=== PATIENT | female | born 1940 | race Caucasian/White ===

== ENCOUNTER 2017-11-16 16:00 | Outpatient (RCR) | payer MEDICARE, OTHER, SELFPAY ==
--- NOTE | 2017-11-09 10:35 | HMH.PTOPEV ---
PT Outpatient Evaluation Rehab PT Outpatient Evaluation Start: 11/09/17 09:30 Freq: Status: Active Protocol: Document 11/09/17 09:31 LATOSHA (Rec: 11/09/17 10:35 LATOSHA [id number]) Electronically Signed By Kaleb Olson, PT 11/09/17 09:31 Outpatient Therapy Subjective History Subjective History Pt is a 77 year old female presenting to outpatient PT with reports of R posterior hip and lateral thigh pain that radiates to the lateral R knee lasting for approximately 2 months that has progressively gotten worse . Pt reports pain started around the time of increased activity levels, specifically treadmill walking. Pt reports hx of fall resulting in lumbar spine fracture with cementing 2 years ago. Only treatment to date for current symptoms includes seeing a chiropractor that provided no relief. No recent diagnostics to report. Chief Complaint Pain Symptom Type Ache Sharp Burning Symptoms Relieved By Rest/Positioning Ice Prescription Meds Symptoms Aggravated By Standing Bending/Stooping Physical Activity Walking Lifting Prior Functional Limitations None Current Functional Limitations Lifting Housework Standing Recreation Activity Walking Stairs Symptom Description Constant but Variable Level of pain today (0-10) 2 Pain scale - at its best (0-10) 7 Pain scale - at its worst (0-10) 1 Lumbopelvic Eval Posture Thoracic Spine Posture Standing Position Increased Kyphosis Lumbar Spine Posture Standing Position Decreased Lordosis Assistive device Assistive Devices None / NA Palapation tenderness right buttock tenderness Yes: piriformis, trochanteric bursa Range of Motion Lumbar Spine Active Flexion Range of 85 Motion (degrees) Lumbar Spine Active Extension Range of 10
== END 2017-11-16 16:01 | disposition home or self-care (01) ==
LOC: PT 16:00
PROVIDERS: Family Provider Internal Medicine; Visit Provider Internal Medicine
DX: M54.31 Sciatica, right side (principal)
CPT/HCPCS: 97010; 97014; 97035; 97110; 97163; G0283

== ENCOUNTER → 2017-12-09 15:30 | Outpatient (POV) | payer MEDICARE, OTHER, SELFPAY | PROVIDERS: Family Provider Internal Medicine; Visit Provider Dermatology | DX: Z00.00 Encounter for general adult medical examination without abnormal findings (principal) ==

== ENCOUNTER 2017-12-31 10:30 | Outpatient (RCR) | payer MEDICARE, OTHER, SELFPAY | END 2018-01-01 10:31 | disposition home or self-care (01) | LOC: PT 10:30 | PROVIDERS: Family Provider Internal Medicine; Visit Provider Orthopaedic Surgery | DX: M54.40 Lumbago with sciatica, unspecified side (principal) | CPT/HCPCS: 97010; 97014; 97035; 97110; 97163; G0283 ==

== ENCOUNTER → 2018-03-04 08:58 | Outpatient (CLI) | payer MEDICARE, OTHER, SELFPAY ==
--- NOTE | 2018-03-04 09:03 | XR_ITS ---
DEXA SCAN.-BONE DENSITY STUDY HIPS AND LUMBAR SPINE HISTORY: Postmenopausal female. Takes calcium and vitamin D. HISTORY of osteopenia/osteoporosis. Interval kyphoplasty/vertebroplasty at L2 compression fracture as seen on CT study from November 17, 2017 and plain films 02/14/2017. Inferior endplate concave compression deformity at L3 seen November 2017. TECHNIQUE: DEXA scan hip and lumbar spine The most complete data summary and color graphic presentation of the today's ( and any prior ) DEXA findings are available in PACS. Definition and treatment guidelines included. COMPARISON: July 2015 DEXA scan LUMBAR SPINE: Sampling performed from L1 through L4 however the day from L2-L3 discarded because of the interval vertebroplasty changes. L4 vertebral body demonstrates the lowest T score -2.3 with BMD0.923 g/cm sq L1 T score -1.3 with BMD 0.978 Overall mean lumbar L1-L4 T score -1.1 with BMD1.05 g/cm sq .- But is overall L1-L4 score is distorted value due to the vertebroplasty/kyphoplasty L2-L3 2016 prior DEXA the mean T score -2.9 with BMD was0.829g/cm sq . However comparing L4: Today. BMD = 0.923. Previous 2016 BMD = 0.804 showing slight interval improvement comparison l1 today BMD 0.978; with previous 2016 T score 0.816 HIPS: Femoral neck density is best predictor of hip fracture risk . Right femoral neck demonstrates the lowest T score -2.2 with BMD0.726 g/cm sq . Left femoral neck T score -2.1 BMD 0.75 Averaging on region yields today's Hip Mean T score -2.4 with BMD0.699 g/cm sq . In 2016 DEXA overall hip T score -2.4 with mean BMD0.709 g/cm sq Thus this reflects a 1.4% decrease in overall mean bone density at the hips in the interval. . However I would note a suggested Z score = -0.6 of reflecting decreased density in interval compatible with patient's progression IMPRESSION 1. LUMBAR SPINE: There is been interval compression fracture with kyphoplasty at L2 and L3 prior 2016 DEXA scan. (Thus these levels are discarded because of the distorted density from interval vertebroplasty changes.) More c s s representative bone density seen at L4 and L1 vertebral bodies these levels demonstrate osteopenia today with improvement in bone density at L1 & L4 vertebral bodies since 2016. 2. HIPS: Overall osteopenia both hips Osteopenia right and left femoral neck Overall hip T score has decreased 1.4% since 2016. This the anticipated decreased bone density over this time.. .;, ( As I would note from the unchanged, stable age adjusted Z score = -0.6 ) WHO criteria for post-menopausal, Women: Normal: T-score at or above -1 SD Osteopenia: T-score between -1 and -2.5 SD Osteoporosis: T-score at or below -2.5 SD
== END ==
PROVIDERS: PCP Internal Medicine; Visit Provider Internal Medicine
DX: M81.0 Age-related osteoporosis without current pathological fracture (principal)
CPT/HCPCS: 77080

== ENCOUNTER 2018-03-09 09:29 | Outpatient (CLI) | payer MEDICARE, OTHER, SELFPAY ==
[2018-03-09 09:32] VITALS: BMI 26.9
[2018-03-09 10:03] LABS: Albumin Level 3.8 gm/dL (3.4-5.0); Calcium 9.1 mg/dL (8.5-10.1); Creatinine Clearance Estimated 50 mL/min (0-300); Creatinine,Serum 0.77 mg/dL (0.55-1.02); Estimated Glomerular Filt Rate 73 ml/min (>60); GFR (African American) 88 ML/MIN (>60)
[2018-03-09 10:40] VITALS: BP 144/78; PULSE 55; RESP 18; TEMP 36.7; O2SAT 96
[2018-03-09 11:05] VITALS: BP 142/72; PULSE 59; RESP 18; O2SAT 97
== END 2018-03-09 11:15 | disposition home or self-care (01) ==
LOC: INF 09:29
PROVIDERS: Visit Provider Internal Medicine
DX: M75.51 Bursitis of right shoulder (principal); M81.0 Age-related osteoporosis without current pathological fracture
CPT/HCPCS: 82040; 82310; 82565; 96374; J3489

== ENCOUNTER → 2018-04-22 16:20 | Outpatient (CLI) | payer MEDICARE, OTHER, SELFPAY ==
--- NOTE | 2018-04-22 16:24 | XR_ITS ---
EXAM: XR lumbar spine min 4V HISTORY: ITS.REASON: LUMBAR BACK PAIN ORDERING PHYSICIAN: Deshaun Dupree PATIENT AGE: 78 years COMPARISON: 02/14/2017 FINDINGS: There has been prior vertebral plasty at L2 and L3 with wedging of both of these vertebral bodies greatest at L2. There is normal alignment. No acute fracture or dislocation is evident. 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 IMPRESSION: Post vertebroplasty L2 and L3, no acute finding
== END ==
PROVIDERS: PCP Internal Medicine; Visit Provider Internal Medicine
DX: M54.5 Low back pain (principal)
CPT/HCPCS: 72110

== ENCOUNTER → 2018-06-30 08:47 | Outpatient (CLI) | payer MEDICARE, OTHER, SELFPAY ==
[2018-06-30 09:38] LABS: Alanine Aminotransferase 25 U/L (12-78); Albumin Level 3.8 gm/dL (3.4-5.0); Albumin/Globulin Ratio 1.2 (1.1-1.8); Alkaline Phosphatase 104 U/L (46-116); Anion Gap 11.1 mEq/L (5-15); Aspartate Amino Transferase 14 U/L (15-37); Bilirubin,Total 0.4 mg/dL (0.2-1.0); Blood Urea Nitrogen 16 mg/dL (7-18); Calcium 9.2 mg/dL (8.5-10.1); Carbon Dioxide 30 mmol/L (21.0-32.0); Chloride 104 mmol/L (98-107); Cholesterol 235 mg/dL (140-200); Creatinine,Serum 0.84 mg/dL (0.55-1.02); Estimated Glomerular Filt Rate 66 ml/min (>60); GFR (African American) 80 ML/MIN (>60); Globulin 3.3 gm/dl (1.3-3.2); Glucose 82 mg/dL (74-106); HDL Cholesterol 118 mg/dL (29-89); LDL Cholesterol 105 mg/dL (0-130); Potassium 4.1 mmoL/L (3.5-5.1); Sodium 141 mmol/L (136-145); Total Protein,Serum 7.1 gm/dL (6.4-8.2); Triglycerides 60 mg/dL (30-200); VLDL Cholesterol 12 mg/dL (0-40)
[2018-06-30 09:44] LABS: Basophils % 0.5 % (0.1-2.0); Eosinophils % 0.5 % (0.1-12.0); Hematocrit 46.1 % (37.0-47.0); Lymphocytes # 1.7 K/mm3 (0.7-4.5); Lymphocytes % 27.8 % (10-50); Mean Corpuscular HGB Conc 32.6 g/dL (31.8-35.4); Mean Corpuscular Hemoglobin 30.8 pg (27.0-31.2); Mean Corpuscular Volume 94.5 fl (81-99); Mean Platelet Volume 7.5 fl (7.4-10.4); Monocytes # 0.3 K/mm3 (0.1-1.0); Neutrophils # 4.1 K/mm3 (1.8-7.8); Neutrophils % 66.1 % (37.0-80.0); Platelet Count 321 K/mm3 (142-424); Red Blood Count 4.88 M/mm3 (4.20-5.40); Red Cell Distribution Width 13.9 % (11.5-17.5); White Blood Count 6.2 K/mm3 (4.8-10.8)
== END ==
PROVIDERS: PCP Internal Medicine; Visit Provider Internal Medicine
DX: I10 Essential (primary) hypertension (principal); E78.5 Hyperlipidemia, unspecified; I25.10 Atherosclerotic heart disease of native coronary artery without angina pectoris; M15.0 Primary generalized (osteo)arthritis
CPT/HCPCS: 36415; 80053; 80061; 85025

== ENCOUNTER → 2018-09-05 16:28 | Outpatient (CLI) | payer MEDICARE, OTHER, SELFPAY ==
--- NOTE | 2018-09-05 16:33 | XR_ITS ---
XR shoulder RT min 2V HISTORY: Posttraumatic pain ITS.REASON: S/P FALL,RT SHOULDER PAIN ORDERING PHYSICIAN: Deshaun Dupree PATIENT AGE: 78 years Comparison: None FINDINGS: A nondisplaced oblique fracture involves the scapula at the glenoid extending obliquely to the infraglenoid region. There does appear to be intra-articular involvement. No evidence of shoulder dislocation. There are mild osteoarthritic changes of the glenohumeral joint and the acromioclavicular joint. IMPRESSION: 1. Nondisplaced fracture of the glenoid with intra-articular involvement. Consider CT for further evaluation 2. Osteoarthritic change
== END ==
PROVIDERS: PCP Internal Medicine; Visit Provider Internal Medicine
DX: M25.511 Pain in right shoulder (principal)
CPT/HCPCS: 73030

== ENCOUNTER → 2018-09-26 11:01 | Outpatient (CLI) | payer MEDICARE, OTHER, SELFPAY ==
--- NOTE | 2018-09-26 11:03 | CA_ITS ---
PROCEDURE: 2-D M-mode and color Doppler study INDICATIONS FOR THE TEST: Chest pain COPD+ Heart Murmur Tobacco Smoking Palpitations Fatigue Syncope Edema Hypertension+Diabetes Mellitus Rheumatic Fever SOB+SAUCEDO+Obesity Hyperlipidemia+ Family History HD Additional History STENSTS,CARDIOMEGALY PATIENT INFORMATION HEIGHT: 62 WEIGHT:143 GENDER: Female B/P:124/70 2-D/M-MODE INTERPRETATION: 2-D MEASUREMENTS OBSERVED VALUES IN CMS Right Ventricular Dimension (RVDd) 1.6 Interventricular Septum (Thickness)(IVsd) 0.7 Left Ventricular Internal Dimensions(LVIDd) 5.3 Left Ventricular Posterior Wall (Thickness)(LVPWd) 0.9 Aortic Root 2.5 Aortic Cusp Separation 1.5 Left Atrial Dimensions (LAD) 5.0 2D 1. Left atrium is moderately enlarged, left ventricle is normal size, there is mild qualitative concentric left ventricular hypertrophy seen, visually estimated ejection fraction 55% with no regional wall motion abnormality. 2. The right atrium and right ventricle are mildly enlarged with normal contractility. 3. The aortic valve is minimally thickened and fibrosed. 4. The mitral and tricuspid valve leaflets are minimally thickened. 5. The pulmonic valve is poorly projected 6. There is small pericardial effusion noted. DOPPLER INTERROGATION: Doppler interrogation of the aortic, mitral and tricuspid valvular presence of trace aortic, mild mitral and tricuspid regurgitation, tricuspid regurgitation jet velocity is inadequate for calculation of the right ventricular systolic pressure, grade 2 diastolic dysfunction seen with tissue Doppler evidence of raised left atrial pressure. Inferior vena cava is normal size with normal inspiratory collapse. CONCLUSION: 1. Biatrial enlargement, normal left ventricular size, mild concentric left ventricular hypertrophy, visually estimated ejection fraction 55% with no regional wall motion abnormality, grade 2 diastolic dysfunction seen with tissue Doppler evidence of raised left atrial pressure, inferior vena cava is normal size with normal inspiratory collapse. 2. Trace aortic, mild mitral and tricuspid regurgitation 3. No significant pericardial effusion noted.
--- NOTE | 2018-09-26 11:04 | NM_ITS ---
CARDIOLITE SPECT MYOCARDIAL PERFUSION LEXISCAN, REST AND STRESS: [facility] REVIEW QGS EF AND WALL MOTION EVALUATION: QPS - PERFUSION EVALUATION HISTORY: SOB, Syncope, Fatigue, HTN, CAD, Family history DOSE: 10.74 mCi technetium 99m mibi intravenously at rest followed by 32.1 mCi technetium 99m mibi following the intravenous ministration of 0.4 mg of Lexiscan. Resting blood pressure is 133/65. Stress blood pressure 145/73. FINDINGS: Ejection fraction is calculated to be 75%. Stress images reveal mildly decreased activity in the anterior wall while rest images reveal uniform myocardial activity IMPRESSION: Mild reversible ischemia throughout the anterior wall with normal ejection fraction normal wall motion. Because of the abnormal anterior wall this is considered a high risk abnormal
--- NOTE | 2018-09-26 12:37 | HMH.ITSHM ---
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 []MONTELUKAST OMEPRAZOLE AMLODIPINE ZOLOFT LORATADINE VITAMIN D3 VITAMIN B FLOVENT OMEGA 3 TRIAMTERENE HCTZ POTASSIUM LIVALO
== END ==
PROVIDERS: PCP Internal Medicine; Visit Provider Nurse Practitioner Family
DX: I25.10 Atherosclerotic heart disease of native coronary artery without angina pectoris (principal); J44.9 Chronic obstructive pulmonary disease, unspecified; R06.09 Other forms of dyspnea; R94.31 Abnormal electrocardiogram [ECG] [EKG]; Z95.5 Presence of coronary angioplasty implant and graft
CPT/HCPCS: 78452; 93017; 93306; A9502; J2785

== ENCOUNTER → 2018-09-29 12:52 | Outpatient (CLI) | payer MEDICARE, OTHER, SELFPAY ==
--- NOTE | 2018-09-29 12:57 | XR_ITS ---
XR shoulder RT min 2V HISTORY: Pain ITS.REASON: 2 views ORDERING PHYSICIAN: Jessica Leavitt MD PATIENT AGE: 78 years Comparison: None FINDINGS: Osteoarthritic changes are present at the acromioclavicular joint and glenohumeral joint with subacromial stenosis. This is not signally changed from 09/05/2018. This scapular fracture involving the subglenoid region is less apparent on today's exam consistent with a healing fracture. IMPRESSION: Healing glenoid fracture with osteoarthritis
--- NOTE | 2018-09-29 12:57 | XR_ITS ---
XR shoulder LT min 2V HISTORY: ITS.REASON: 2 views ORDERING PHYSICIAN: Jessica Leavitt MD PATIENT AGE: 78 years Comparison: None FINDINGS: There are mild osteoarthritic changes of the acromioclavicular joint and glenohumeral joint. No fracture, lytic lesion, or blastic lesion evident. 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
== END ==
PROVIDERS: PCP Internal Medicine; Visit Provider Orthopaedic Surgery
DX: M25.511 Pain in right shoulder (principal); M25.512 Pain in left shoulder
CPT/HCPCS: 73030

== ENCOUNTER 2018-10-10 07:45 | Day surgery (SDC) | payer MEDICARE, OTHER, SELFPAY ==
[2018-10-10] VITALS (12 sets, daily range): BP systolic 97–168; BP diastolic 51–95; PULSE 54–73; RESP 16–20; TEMP 36.5; O2SAT 97–100; BMI 25.7; BMI 27.1
--- NOTE | 2018-10-10 | IR_ITS ---
CARDIAC CATHETERIZATION DATE OF CATHETERIZATION:10/10/2018 10:37 AM PROCEDURES: 1. Left heart catheterization 2. Left ventriculogram 3. Selective coronary angiogram INDICATION FOR TEST: 1. Abnormal Myoview 2. Known coronary artery disease Informed consent was obtained prior to the procedure. COMPLICATIONS: None ESTIMATED BLOOD LOSS: Less than 10 ml. TECHNIQUE: One percent lidocaine used to anesthetize the right anterior aspect of the wrist. The right radial artery was accessed via the Seldinger technique. A 6 Iranian sheath was placed in the right radial artery. 2.5 mg of verapamil, 800 mcg of nitroglycerin, 1mg Lidocaine and 5000 U Heparin were given through the arterial sheath. The trap catheter 4 Iranian al1 catheter and a 6 Iranian JL3 Catheter were also used to perform left heart catheterization, left ventriculogram and selective coronary angiogram. At the end of the procedure the sheath was removed good hemostasis was achieved using Traclet band, patient was transferred to the postop holding area in stable condition . ANGIOGRAPHIC RESULTS: 1. The left main artery normal 2. The left anterior descending artery has proximal 20% stenoses followed by mid vessel stent which is widely patent free of in-stent restenosis with excellent distal and proximal transitioning. 1 cm distal to the stent is a focal 50% stenosis 1 cm proximal to a moderate sized second diagonal artery. Remaining LAD has mild luminal irregularities 3. The ramus intermedius is a large vessel and has proximal 50 1670% stenoses 4. The circumflex artery is nondominant and has proximal 20% and mid vessel 20% luminal irregularities 5. The right coronary artery is a dominant vessel and has proximal 30% mid vessel 40-50% stenoses 6. The MIRELES ventriculogram reveals normal 65% 7. The left ventricular end-diastolic pressure 15 mmHg IMPRESSION: 1. Coronary artery disease as described above 2. Normal ejection fraction 3. Mildly elevated LVEDP PLAN: 1. At this point I recommend medical management given patient's minimal symptoms. Should she continued to experience symptoms the ramus intermedius is relatively for stenting based on the abnormal Myoview. I would consider performing FFR on both the right and LAD if angina were to recur or intensify. Otherwise these lesions are best managed medically 2. Risk factor modification
[2018-10-10 08:44] LABS: Basophils % 0.7 % (0.1-2.0); Eosinophils # 0.1 K/mm3 (0.0-0.4); Eosinophils % 1.3 % (0.1-12.0); Hematocrit 40.6 % (37.0-47.0); Hemoglobin 13.7 g/dL (12.2-16.2); Lymphocytes # 2.2 K/mm3 (0.7-4.5); Lymphocytes % 32.8 % (10-50); Mean Corpuscular HGB Conc 33.7 g/dL (31.8-35.4); Mean Corpuscular Hemoglobin 31.3 pg (27.0-31.2); Mean Corpuscular Volume 92.8 fl (81-99); Mean Platelet Volume 7.1 fl (7.4-10.4); Monocytes # 0.5 K/mm3 (0.1-1.0); Monocytes % 7.1 % (1.7-9.3); Neutrophils # 3.8 K/mm3 (1.8-7.8); Neutrophils % 58.2 % (37.0-80.0); Platelet Count 304 K/mm3 (142-424); Red Blood Count 4.37 M/mm3 (4.20-5.40); Red Cell Distribution Width 14.3 % (11.5-17.5); White Blood Count 6.6 K/mm3 (4.8-10.8)
[2018-10-10 08:50] LABS: Anion Gap 13.9 mEq/L (5-15); Blood Urea Nitrogen 21 mg/dL (7-18); Calcium 8.9 mg/dL (8.5-10.1); Carbon Dioxide 27 mmol/L (21.0-32.0); Chloride 105 mmol/L (98-107); Creatinine Clearance Estimated 50 mL/min (50-200); Creatinine,Serum 0.92 mg/dL (0.55-1.02); Estimated Glomerular Filt Rate 59 ml/min (>60); GFR (African American) 72 ML/MIN (>60); Glucose 83 mg/dL (74-106); Potassium 3.9 mmoL/L (3.5-5.1); Sodium 142 mmol/L (136-145)
== END 2018-10-10 14:01 | disposition home or self-care (01) ==
LOC: CATHLAB 07:46
PROVIDERS: PCP Internal Medicine; Visit Provider Internal Medicine
DX: I25.10 Atherosclerotic heart disease of native coronary artery without angina pectoris (principal); I50.30 Unspecified diastolic (congestive) heart failure; I11.0 Hypertensive heart disease with heart failure; Z82.49 Family history of ischemic heart disease and other diseases of the circulatory system; Z79.899 Other long term (current) drug therapy; Z95.5 Presence of coronary angioplasty implant and graft; E78.5 Hyperlipidemia, unspecified; I42.9 Cardiomyopathy, unspecified
CPT/HCPCS: 80048; 85025; 93458; 99152; 99153; C1725; C1769; J1644; Q9967

== ENCOUNTER → 2018-11-16 09:00 | Outpatient (CLI) | payer MEDICARE, OTHER, SELFPAY ==
[2018-11-16 10:14] LABS: Alanine Aminotransferase 29 U/L (12-78); Albumin Level 3.4 gm/dL (3.4-5.0); Alkaline Phosphatase 73 U/L (46-116); Aspartate Amino Transferase 20 U/L (15-37); Bilirubin,Direct 0.1 mg/dL (0.0-0.2); Bilirubin,Indirect 0.2 mg/dL (0.0-0.9); Bilirubin,Total 0.3 mg/dL (0.2-1.0); Chol/HDL Ratio 3.3 (1-3.5); Cholesterol 258 mg/dL (140-200); HDL Cholesterol 79 mg/dL (29-89); LDL Cholesterol 164 mg/dL (0-130); Total Protein,Serum 6.3 gm/dL (6.4-8.2); Triglycerides 76 mg/dL (30-200); VLDL Cholesterol 15 mg/dL (0-40)
== END ==
PROVIDERS: Visit Provider Physician Assistant
DX: I25.10 Atherosclerotic heart disease of native coronary artery without angina pectoris (principal); J44.9 Chronic obstructive pulmonary disease, unspecified; R94.31 Abnormal electrocardiogram [ECG] [EKG]; Z95.5 Presence of coronary angioplasty implant and graft
CPT/HCPCS: 36415; 80061; 80076

== ENCOUNTER 2018-11-16 15:00 | Outpatient (RCR) | payer MEDICARE, OTHER, SELFPAY ==
--- NOTE | 2018-10-05 11:02 | HMH.PTOPEV ---
PT Outpatient Evaluation Rehab PT Outpatient Evaluation Start: 10/05/18 09:55 Freq: Status: Active Protocol: Document 10/05/18 10:49 YARELIS (Rec: 10/05/18 11:02 PHORDAWSON [id number]) Electronically Signed By Teo Schultz, PT 10/05/18 10:49 Outpatient Therapy Subjective History Subjective History Pt is 78 yowf who presents ~ 3 -4 wks S/P fall at home with resulting hairline fx to the right glenoid fossa. She states, I just fell right onto my shoulder on the hardwood floor. She currently reports no c/o pain at rest or with any everyday activity. She reports she was in a sling for ~ 3 wks, but has been out of it since 09/29. She reports significant DJD in kristopher shld, left worse than right, with more pain on the left side currently. She has PMH of asthma, CAD, cardiomyopathy, depression, HL , heart cath with stent x 1, HTN. Chief Complaint Stiff Symptoms Relieved By Rest/Positioning Prior Functional Limitations None Current Functional Limitations Lifting Symptom Description Intermittent Level of pain today (0-10) 0 Pain scale - at its worst (0-10) 7 Shoulder/Elbow Eval Shoulder Objective Measurements Palpation Tenderness tenderness shoulder exam standard left Shoulder Palpation Findings Tenderness Shoulder Palpation Overall Comment most tender at left upper trap Posture Shoulder Posture Sitting Position (L) Rounded,(R) Rounded,(L) Forward,(R) Forward Shoulder Posture Standing Position (L) Rounded,(R) Rounded,(L) Forward,(R) Forward Shoulder ROM Bilateral Shoulder Abduction Active Range of 0-140 Motion (degrees) Shoulder Abduction Passive Range of 0-160 Motion (degrees) Shoulder Flexion Active Range of Motion 0-160 (degrees) Query Text: Shoulder Flexion Passive Range of Motion 0-170 (degrees) Shoulder External Rotation Active Range 0-80 of Motion (degrees) Shoulder Internal Rotation Active Range 0-80 of Motion (degrees) Shoulder MMT Left Shoulder Abduction Strength Grade 4 Good Shoulder Flexion Strength Grade 4 Good Shoulder External Rotation Strength 4 Good Grade
== END 2018-11-16 15:05 | disposition home or self-care (01) ==
LOC: PT 15:00
PROVIDERS: Visit Provider Orthopaedic Surgery
DX: M25.511 Pain in right shoulder (principal)
CPT/HCPCS: 97010; 97014; 97110; 97163; G0283

== ENCOUNTER → 2018-12-05 13:16 | Outpatient (CLI) | payer MEDICARE, OTHER, SELFPAY ==
--- NOTE | 2018-12-05 13:23 | XR_ITS ---
XR shoulder RT min 2V HISTORY: Follow-up fracture ITS.REASON: shoulder fracture ORDERING PHYSICIAN: Jessica Leavitt MD PATIENT AGE: 78 years Comparison: 09/29/2018 FINDINGS: Nondisplaced oblique fractures once again noted involving the mid to inferior glenoid region of the scapula overall not significant changed. Fracture line is still visible. There is some sclerosis around the fracture site. There are osteoarthritic changes of the AC joint with mild subacromial stenosis. IMPRESSION Overall no change in the right glenoid fracture
== END ==
PROVIDERS: PCP Internal Medicine; Visit Provider Orthopaedic Surgery
DX: M25.511 Pain in right shoulder (principal)
CPT/HCPCS: 73030

== ENCOUNTER → 2019-01-13 15:40 | Outpatient (CLI) | payer MEDICARE, OTHER, SELFPAY ==
--- NOTE | 2019-01-13 15:43 | XR_ITS ---
PROCEDURE: XR CHEST 2V CLINICAL HISTORY: COUGH,WHEEZING,SOA COMPARISON: CXR1 CHEST-PORTABLE from 08/05/2012 CXR CHEST(2 VIEWS-NOT PORTABLE) from 08/10/2014 CXR2V XR chest 2V from 09/19/2018 FINDINGS: Mild cardiomegaly without failure. Hiatal hernia is noted. There is increased density in the right lower lobe consistent with pneumonia. Degenerative change thoracic spine IMPRESSION: Right lower lobe infiltrate Dictated by: Austen Huang MD 01/13/2019 16:26 Electronically signed by Austen Huang MD in [place] 01/13/2019 16:26
== END ==
PROVIDERS: PCP Internal Medicine; Visit Provider Internal Medicine
DX: R05 Cough (principal); R06.02 Shortness of breath; R06.2 Wheezing
CPT/HCPCS: 71046

== ENCOUNTER → 2019-02-17 11:53 | Outpatient (CLI) | payer MEDICARE, OTHER, SELFPAY ==
--- NOTE | 2019-02-17 | XR_ITS ---
PROCEDURE: XR CHEST 2V CLINICAL HISTORY: Follow-up suspected pneumonia COMPARISON: No exams were available for comparison FINDINGS: The cardiomediastinal silhouette and pulmonary vascularity are within normal limits. The lung nicholas are well expanded and appear clear of infiltrate. There is a double density seen through the cardiac shadow likely due to a small hiatal hernia. There is no pleural fluid. There are minor multilevel degenerate changes of the thoracic spine. There moderate degenerate changes of both shoulders with prominent lateral downsloping acromion processes bilaterally which would certainly predispose to significant impingement syndrome and suggest clinical correlation. IMPRESSION: Probable small hiatal hernia, no definite acute chest pathology is seen Dictated by: Dr. Justo Gutierrez MD 02/17/2019 12:[address] Justo Gutierrez MD in [place] 02/17/2019 12:46
== END ==
PROVIDERS: PCP Internal Medicine; Visit Provider Internal Medicine
DX: J18.9 Pneumonia, unspecified organism (principal); Z09 Encounter for follow-up examination after completed treatment for conditions other than malignant neoplasm
CPT/HCPCS: 71046

== ENCOUNTER 2019-03-20 16:28 | Observation (INO) ==
--- NOTE | 2019-03-20 16:42 | Emergency Department Note ---
ED Disposition Clinical Impression: Closed head injury, Traumatic hematoma of face, Right patella fracture, Contusion of left chest wall, Fracture of fifth metacarpal bone of left hand Disposition: Admitted as Observation Condition on Discharge: Fair Time of Disposition: 18:25 - Critical Care Critical Care Time: No Attestation: On , the high probability of a clinically significant, sudden or life thre atening deterioration of the following system(s) required my full and direct attention, intervention and personal management. The time I documented below is in addition to time spent performing reported procedures but includes the following listed in this critical care notation. Medical Decision Making - Medical Records Medical records reviewed: Yes: I reviewed the patient's medical records. - Camilo Inquiry Pt receiving controlled substance: No Camilo was queried for this patient: No Risks and benefits of using a controlled substance: were not discussed with pt by me Vital Signs: 03/20/19 16:30 03/20/19 17:37 03/20/19 18:01 Temperature 98.1 F Temperature Source Oral Pulse Rate [Right Radial] 69 68 64 Respiratory Rate 18 Blood Pressure [Right Arm] 161/84 H 148/79 H 143/75 H Blood Pressure Mean [Right Arm] 109 102 97 Blood Pressure Source [Right Arm] Automatic Cuff Automatic Cuff Blood Pressure Position [Right Arm] Supine Supine 02 Sat by Pulse Oximetry 100 94 L 99 Oxygen Delivery Method Room Air Room Air Room Air 03/20/19 19:44 Temperature Temperature Source Pulse Rate [Right Radial] 95 H Respiratory Rate 16 Blood Pressure [Right Arm] 160/87 H Blood Pressure Mean [Right Arm] 111 Blood Pressure Source [Right Arm] Automatic Cuff Blood Pressure Position [Right Arm] Sitting 02 Sat by Pulse Oximetry 97 Oxygen Delivery Method Room Air - Lab Data Lab results reviewed: Yes: I reviewed the patient's lab results. Lab Results 03/20/19 16:35: WBC 7.9, RBC 4.31, Hgb 13.2, Hct 41.4, MCV 96.1, MCH 30.8, MCHC 32.0, RDW 14.4, Plt Count 287, MPV 8.2, Neut % (Auto) 57.5, Lymph % (Auto) 31.2, [place] % (Auto) 6.5, Eos % (Auto) 4.1, Baso % (Auto) 0.7, Neut # (Auto) 4.6, Lymph # (Auto) 2.5, [place] # (Auto) 0.5, Eos # (Auto) 0.3, Baso # (Auto) 0.1 03/20/19 17:20: Sodium 137, Potassium 4.3, Chloride 103, Carbon Dioxide 26, Anion Gap 12.3, BUN 25 H, Creatinine 1.00, Estimated Creat Clear 46, Estimated GFR 54 L, Est GFR ( Amer) 65, Glucose 100, Calcium 9.2 Result diagrams: 03/20/19 16:35 03/20/19 17:20 Orders (Tests/Meds): ED MEDICATIONS Discontinued Medications Generic Name Dose Route Start Last Admin Trade Name Freq PRN Reason Stop Dose Admin Acetaminophen 650 mg 03/20/19 17:07 03/20/19 17:38 Acetaminophen 325mg Tab PO 03/20/19 17:08 650 mg ONCE ONE Administration Ioversol 100 ml 03/20/19 18:40 03/20/19 18:41 Rad-Optiray 350 100ml Vial IV 03/20/19 18:41 100 ml ONCE ONE Administration Protocol Ketorolac Tromethamine 15 mg 03/20/19 17:06 03/20/19 17:38 Toradol 30mg/Ml Vial IV 03/20/19 17:07 15 mg ONCE ONE Administration Sodium Chloride 50 ml 03/20/19 18:40 03/20/19 18:41 Rad-Ns 50ml Vial IV 03/20/19 18:41 50 ml ONCE ONE Administration Sodium Chloride 10 ml 03/20/19 18:40 03/20/19 18:41 Rad-Saline Flush 10ml Syringe IV 03/20/19 18:41 10 ml ONCE ONE Administration ORDERS Category Date Time Status CT angio chest Stat Cat Scan 03/20/19 17:[address] cervical spine wo con Stat Cat Scan 03/20/19 16:[address] facial bones wo con Stat Cat Scan 03/20/19 16:[address] head/brain wo con Stat Cat Scan 03/20/19 16:30 Taken Knee XR right 3 views [XR knee RT 3V] Stat Exams 03/20/19 16:30 Taken XR chest AP Stat Exams 03/20/19 16:30 Taken XR hand LT min 3V Stat Exams 03/20/19 17:48 Taken XR pelvis 1-2V Stat Exams 03/20/19 16:30 Taken XR ribs LT 2V Stat Exams 03/20/19 17:01 Taken - Physician Consults Physician Consulted: on-call for Joon Additional Consult: shiloh Time: 19:21 Reason -: Pt condition, Orthopedic Eval/Care Fall HPI - General Chief Complaint: Fall Stated Complaint: Fall Time Seen by Provider: 03/20/19 16:39 Mode of Arrival: EMS Source of Information: Patient Limitations: No Limitations Description of Symptoms (Recalled from ER Triage Doc. by RN): pt presents to ed s/p fall after "getting her feet tripped" landing on concrete face first. pt denies loc. pt c/o nosebleed that is now controlled, head/face pain and hematoma, right knee pain and left rib pain. - History of Present Illness HPI Narrative: patient tripped over her own feet, attributes accident to clumsiness. no syncope, no presyncope. Patient has head injuries/facial injuries, chest and R lower extremity injury. - Related Data Home Medications Medication Instructions Recorded Confirmed aspirin 81 mg tablet,delayed 81 mg PO DAILY 03/21/18 03/20/19 release cholecalciferol (vitamin D3) 1,000 1,000 unit PO DAILY 09/20/18 03/20/19 unit capsule fluticasone propionate 110 1 inh INHALATION DAILY 90 Days g 09/20/18 03/20/19 mcg/actuation HFA aerosol inhaler loratadine 10 mg tablet 10 mg PO DAILY 90 Days tab 09/20/18 03/20/19 montelukast 10 mg tablet 10 mg PO DAILY 90 Days tab 09/20/18 03/20/19 omega-3 fatty acids 1,000 mg 1,000 mg PO DAILY 09/20/18 03/20/19 capsule omeprazole 40 mg capsule,delayed 40 mg PO DAILY 90 Days #90 cap 09/20/18 03/20/19 release pitavastatin calcium 4 mg tablet 4 mg PO DAILY 09/20/18 03/20/19 sertraline 100 mg tablet 100 mg PO DAILY 90 Days tab 09/20/18 03/20/19 triamterene 37.5 1 cap PO DAILY 09/20/18 03/20/19 mg-hydrochlorothiazide 25 mg capsule vitamin B complex tablet 1 tab PO DAILY 09/20/18 03/20/19 potassium chloride ER 10 mEq 10 meq PO DAILY 09/21/18 03/20/19 capsule,extended release budesonide-formoterol HFA 80 2 puff INHALATION BID 09/29/18 03/20/19 mcg-4.5 mcg/actuation aerosol inhaler clonazepam 0.5 mg tablet 0.5 mg PO DAILY tab 01/19/19 03/20/19 Allergies Allergy/AdvReac Type Severity Reaction Status Date / Time [id number] Reductase Allergy Intermediate myalgias Verified 03/20/19 16:34 Inhibitor atorvastatin AdvReac Intermediate rash Verified 03/20/19 16:34 [facility] History - Hepatitis A Screen Drug use history?: No High risk sexual behaviors?: No History of sexually transmitted infection?: No Currently employed?: No Childcare worker?: No Do you have indoor plumbing?: Yes Do you have electricity?: Yes Attestation statement:: This patient has been screened for Hepatitis A risk factors. I have reviewed the patient's past medical history: Yes Medical History: Reports:: Asthma, Cardiomyopathy, Coronary Artery Disease, Depression, Hyperlipidemia Denies:: Cancer, Diabetes Mellitus Type 1, Diabetes Mellitus Type 2, Internal Pacemaker, MRSA, Seizures Other Medical History: Reports: Cataracts Other Surgeries: Yes: Cardiac Catheterization, Coronary Stent. No: Pacemaker Amputation: No Fractures: No Comment: shoulder 2001. 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 ROS Obtained: Yes All systems reviewed & no additional complaints - Constitutional Constitutional: Denies fever(s), Denies weakness - Eyes Eyes: Denies change in vision - ENT Ears, Nose, Mouth, and Throat: Reports facial pain - Cardiovascular Cardiovascular: Reports chest pain, Reports chest pain at rest, Denies diaphoresis, Denies dyspnea, Denies edema - Respiratory Respiratory: No cough, No dyspnea, Yes pain on inspiration, Yes other (left chest wall) - Gastrointestinal Gastrointestingal: Denies: abdominal pain - Musculoskeletal Musculoskeletal: Reports joint pain, Denies limited range of motion, Reports muscle aches, Denies neck pain, Denies numbness, Reports stiffness - Integumentary/Breasts Skin/Breast: Reports wounds - Neurologic Neurologic: Reports headache(s), Denies numbness, Denies syncope, Denies weakness, Reports other (large hematoma forehead, L greatest) - Hematologic/Lymphatic Henatologic/Lymphatic: Reports easy bleeding Physical Exam - General General appearance: alert, in no apparent distress - Head Head exam: other (marked hematoma forehead, abrasion to nasal bridge) - Eye Eye exam: Present: periorbital swelling (left sided, minimal. Larger hematoma noted superior to this). Absent: conjunctival redness, conjunctival injection, discharge - ENT ENT exam: Present: normal exam - Neck Neck exam: Present: normal inspection, full ROM, trachea midline. Absent: meningismus, lymphadenopathy - Chest Chest inspection: Present: normal inspection, symmetric chest wall rise. Absent: tenderness - Respiratory Respiratory exam: Present: normal lung sounds bilaterally. Absent: respiratory distress - Cardiovascular Cardiovascular exam: Present: regular rate, normal rhythm. Absent: JVD - Abdominal Exam Abdominal exam: Present: soft - Extremities Exam Extremities exam: Present: normal inspection, tenderness, normal capillary refill, joint swelling, other (pain to R peripatellar region with any range of motion tested). Absent: full ROM - Neurological Exam Neurological exam: Present: alert, oriented X3 - Skin Skin exam: Present: warm, dry, other (abrasion to patellar area on R). Absent: intact Procedures - Orthopedic Splinting/Casting Injury #1 Side: left Upper Extremity Injury Location: hand Upper Extremity Immobilizer: ulnar gutter Lower Extremity Injury Location: knee Lower Extremity Immobilizer: knee immobilizer Post Cast/Splinting Neuro Status: intact Post Cast/Splinting Vasc Status: intact
[2019-03-20 16:50] LABS: Basophils # 0.1 K/mm3 (0-0.2); Basophils % 0.7 % (0.1-2.0); Eosinophils # 0.3 K/mm3 (0.0-0.4); Eosinophils % 4.1 % (0.1-12.0); Hematocrit 41.4 % (37.0-47.0); Hemoglobin 13.2 g/dL (12.2-16.2); Lymphocytes # 2.5 K/mm3 (0.7-4.5); Lymphocytes % 31.2 % (10-50); Mean Corpuscular Volume 96.1 fl (81-99); Mean Platelet Volume 8.2 fl (7.4-10.4); Monocytes # 0.5 K/mm3 (0.1-1.0); Monocytes % 6.5 % (1.7-9.3); Neutrophils # 4.6 K/mm3 (1.8-7.8); Neutrophils % 57.5 % (37.0-80.0); Platelet Count 287 K/mm3 (142-424); Red Blood Count 4.31 M/mm3 (4.20-5.40); Red Cell Distribution Width 14.4 % (11.5-17.5); White Blood Count 7.9 K/mm3 (4.8-10.8)
[2019-03-20 17:41] LABS: Anion Gap 12.3 mEq/L (5-15); Calcium 9.2 mg/dL (8.5-10.1)
[2019-03-21 06:28] LABS: Basophils % 0.6 % (0.1-2.0); Eosinophils # 0.3 K/mm3 (0.0-0.4); Eosinophils % 4.4 % (0.1-12.0); Hematocrit 37.7 % (37.0-47.0); Hemoglobin 11.9 g/dL (12.2-16.2); Lymphocytes # 2.3 K/mm3 (0.7-4.5); Lymphocytes % 31.3 % (10-50); Mean Corpuscular HGB Conc 31.6 g/dL (31.8-35.4); Mean Corpuscular Volume 97.6 fl (81-99); Mean Platelet Volume 8.3 fl (7.4-10.4); Monocytes # 0.5 K/mm3 (0.1-1.0); Monocytes % 7.4 % (1.7-9.3); Neutrophils # 4.1 K/mm3 (1.8-7.8); Neutrophils % 56.5 % (37.0-80.0); Platelet Count 233 K/mm3 (142-424); Red Blood Count 3.87 M/mm3 (4.20-5.40); Red Cell Distribution Width 14.3 % (11.5-17.5); White Blood Count 7.2 K/mm3 (4.8-10.8)
--- NOTE | 2019-03-21 07:36 | Pharmacy Consult Notes ---
[facility] Pharmacy VTE Monitoring - Patient Demographics Admission date: 03/20/19 Report Date: 03/21/19 Time: 07:36 Allergies/Adverse Reactions: Patient Allergies Jzeyyoc-Kjg-Qqg Reductase Inhibitor Allergy (Intermediate, Verified 03/20/19 16:34) myalgias atorvastatin Adverse Reaction (Intermediate, Verified 03/20/19 16:34) rash Height: 1.57 m Weight: 68.039 kg Patient Problems: Current Active Problems Closed head injury (Acute) Traumatic hematoma of face (Acute) Right patella fracture (Acute) Contusion of left chest wall (Acute) Fracture of fifth metacarpal bone of left hand (Acute) - VTE Risk Labs: VTE Related Lab Results Hgb 11.9 g/dL (12.2-16.2) L 03/21/19 06:04 Hct 37.7 % (37.0-47.0) 03/21/19 06:04 Plt Count 233 K/mm3 (142-424) 03/21/19 06:04 BUN 25 mg/dL (7-18) H 03/20/19 17:20 Creatinine 1.00 mg/dL (0.55-1.02) 03/20/19 17:20 Estimated Creat Clear 46 mL/min (50-200) 03/20/19 17:20 Was VTE Risk Assessment Performed: Yes VTE Score: 4 VTE Risk Level: Low Risk Clinical Trial Participant: No - Prophylaxis VTE Prophylaxis Ordered?: Yes Types of VTE Prophylaxis: TEDS Knee High
[2019-03-21 07:40] LABS: Anion Gap 9.7 mEq/L (5-15); Calcium 8.5 mg/dL (8.5-10.1)
--- NOTE | 2019-03-21 08:12 | History & Physical Report ---
*Admission Date: 03/20/19 *Chief complaint: fall, patellar fracture *History of present illness: 79-year-old female who was stepping over a curb yesterday and tripped. Fell sustaining trauma to her face, left hand, right knee. Denies any loss of consciousness. Was brought to the ER where she was scanned from head to toe. Found to have metacarpal fracture in her left hand and right patellar fracture. Denies any chest pain, shortness of breath, nausea, vomiting. Pain fairly well controlled overnight with minimal opioids needed. Required 1 dose of [place] and 1 of morphine. Denies any syncope. Admitted to medicine for further management. Orthopedics consulted and plans to see the patient today. Of note, is on baby aspirin due to history of stent placement 9 years ago. This is complicated her bleeding. [facility] History I have reviewed the patient's past medical history: Yes Medical History: Reports:: Asthma, Cardiomyopathy, Coronary Artery Disease, Depression, Hyperlipidemia, Hypertension Denies:: Cancer, Diabetes Mellitus Type 1, Diabetes Mellitus Type 2, Internal Pacemaker, MRSA, Seizures *Have you ever received a pneumonia vaccine?: Yes (2 YEARS AGO) *Have you received a flu vaccine this season?: Yes Other Medical History: Reports: Arthritis, Cataracts Laterality Cases: Left: Arthroscopy Shoulder Other Surgeries: Yes: Appendectomy, Cardiac Catheterization, Coronary Stent, Hysterectomy-Partial, Tubal Ligation, Other (2 BACK SX (FX DISKS)). 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 Review of Systems - Review of Systems Review of systems:: pertinent systems reviewed and negative unless documented below - *Neurologic Reports headache(s), Reports other (large hematoma forehead, L greatest), Denies numbness, Denies fainting, Denies weakness Meds Home Medications Medication Instructions Recorded Confirmed Type aspirin 81 mg tablet,delayed 81 mg PO DAILY 03/21/18 03/20/19 History release cholecalciferol (vitamin D3) 1,000 1,000 unit PO DAILY 09/20/18 03/20/19 History unit capsule fluticasone propionate 110 1 inh INHALATION DAILY 90 Days g 09/20/18 03/20/19 History mcg/actuation HFA aerosol inhaler loratadine 10 mg tablet 10 mg PO DAILY 90 Days tab 09/20/18 03/20/19 History montelukast 10 mg tablet 10 mg PO DAILY 90 Days tab 09/20/18 03/20/19 History omega-3 fatty acids 1,000 mg 1,000 mg PO DAILY 09/20/18 03/20/19 History capsule omeprazole 40 mg capsule,delayed 40 mg PO DAILY 90 Days #90 cap 09/20/18 03/20/19 History release pitavastatin calcium 4 mg tablet 4 mg PO DAILY 09/20/18 03/20/19 History sertraline 100 mg tablet 100 mg PO DAILY 90 Days tab 09/20/18 03/20/19 History triamterene 37.5 1 cap PO DAILY 09/20/18 03/20/19 History mg-hydrochlorothiazide 25 mg capsule vitamin B complex tablet 1 tab PO DAILY 09/20/18 03/20/19 History potassium chloride ER 10 mEq 10 meq PO DAILY 09/21/18 03/20/19 History capsule,extended release budesonide-formoterol HFA 80 2 puff INHALATION BID 09/29/18 03/20/19 History mcg-4.5 mcg/actuation aerosol inhaler clonazepam 0.5 mg tablet 0.5 mg PO DAILY tab 01/19/19 03/20/19 History Allergies Allergy/AdvReac Type Severity Reaction Status Date / Time Fuafooo-Etr-Fhi Reductase Allergy Intermediate myalgias Verified 03/20/19 16:34 Inhibitor atorvastatin AdvReac Intermediate rash Verified 03/20/19 16:34 Exam Vital signs and Labs for Last 24 Hours: Temp Pulse Resp BP Pulse Ox 97.7 F 68 17 128/54 L 96 03/21/19 07:49 03/21/19 07:49 03/21/19 07:49 03/21/19 07:49 03/21/19 07:49 Laboratory Results - last 24 hr 03/20/19 16:35: WBC 7.9, RBC 4.31, Hgb 13.2, Hct 41.4, MCV 96.1, MCH 30.8, MCHC 32.0, RDW 14.4, Plt Count 287, MPV 8.2, Neut % (Auto) 57.5, Lymph % (Auto) 31.2, [place] % (Auto) 6.5, Eos % (Auto) 4.1, Baso % (Auto) 0.7, Neut # (Auto) 4.6, Lymph # (Auto) 2.5, [place] # (Auto) 0.5, Eos # (Auto) 0.3, Baso # (Auto) 0.1 03/20/19 17:20: Sodium 137, Potassium 4.3, Chloride 103, Carbon Dioxide 26, Anion Gap 12.3, BUN 25 H, Creatinine 1.00, Estimated Creat Clear 46, Estimated GFR 54 L, Est GFR ( Amer) 65, Glucose 100, Calcium 9.2 03/21/19 06:04: WBC 7.2, RBC 3.87 L, Hgb 11.9 L, Hct 37.7, MCV 97.6, MCH 30.9, MCHC 31.6 L, RDW 14.3, Plt Count 233, MPV 8.3, Neut % (Auto) 56.5, Lymph % (Auto) 31.3, [place] % (Auto) 7.4, Eos % (Auto) 4.4, Baso % (Auto) 0.6, Neut # (Auto) 4.1, Lymph # (Auto) 2.3, [place] # (Auto) 0.5, Eos # (Auto) 0.3, Baso # (Auto) 0.0 03/21/19 06:04: Sodium 141, Potassium 4.7, Chloride 108 H, Carbon Dioxide 28, Anion Gap 9.7, BUN 25 H, Creatinine 0.99, Estimated Creat Clear 50, Estimated GFR 54 L, Est GFR ( Amer) 66, Glucose 80, Calcium 8.5 I & O for Last 24 hours: Intake & Output 03/18/19 03/19/19 03/20/19 03/21/19 23:59 23:59 23:59 23:59 Intake Total 634 / 634 Balance 634 / 634 Weight 66.723 kg 68.039 kg Assessment and Plan (1) Closed head injury Current visit: Yes Status: Acute Category: Medical Code(s): S09.90XA - Unspecified injury of head, initial encounter (2) Contusion of left chest wall Current visit: Yes Status: Acute Category: Medical Code(s): S20.212A - Contusion of left front wall of thorax, initial encounter (3) Fracture of fifth metacarpal bone of left hand Current visit: Yes Status: Acute Category: Medical Code(s): S62.307A - Unspecified fracture of fifth metacarpal bone, left hand, initial encounter for closed fracture (4) Right patella fracture Current visit: Yes Status: Acute Category: Medical Code(s): S82.001A - Unspecified fracture of right patella, initial encounter for closed fracture (5) Traumatic hematoma of face Current visit: Yes Status: Acute Category: Medical Code(s): S00.83XA - Contusion of other part of head, initial encounter (6) COPD (chronic obstructive pulmonary disease) Current visit: No Status: Chronic Qualifiers: COPD type: unspecified COPD Qualified Code(s): J44.9 - Chronic obstructive pulmonary disease, unspecified Category: Medical Code(s): J44.9 - Chronic obstructive pulmonary disease, unspecified (7) Grade II diastolic dysfunction Current visit: No Status: Chronic Category: Medical Code(s): I51.9 - Heart disease, unspecified (8) HLD (hyperlipidemia) Current visit: No Status: Chronic Qualifiers: Hyperlipidemia type: mixed hyperlipidemia Qualified Code(s): E78.2 - Mixed hyperlipidemia Category: Medical Code(s): E78.5 - Hyperlipidemia, unspecified (9) HTN (hypertension) Current visit: No Status: Chronic Qualifiers: Hypertension type: essential hypertension Qualified Code(s): I10 - Essential (primary) hypertension Category: Medical Code(s): I10 - Essential (primary) hypertension - Assessment and plan all Dx Assessment and Plan for all problems:: 79-year-old female who sustained traumatic injury to face and fracture of left fifth metacarpal and right patella. Admitted for pain management and orthopedics consult. Pending consult today to determine if needs surgical fixation or immobilization. Physical therapy consulted to assess for needs pending decision of Ortho. Continue home medications for chronic conditions. Hold aspirin in the setting of hematomas and potential surgery. Patient has remained hemodynamically stable overnight. Would be safe for discharge home she has family who lives in town that can stay with her pending decision to perform ORIF or not. Full code
--- NOTE | 2019-03-21 11:13 | Consult Report ---
*Admission Date: 03/20/19 *Reason for consult:: R patella + L hand fractures *History of present illness: 79yo F admitted overnight after a mechanical fall. She was walking into a clothing store, stepped up onto the sidewalk, and fell; she does not recall tripping or losing her balance, and denies preceding symptoms such as chest pain or dizziness. She sustained a nasal bone fracture and periorbital hematoma, as well as L 5th metacarpal fracture and R patella fracture. Review of Systems - Review of Systems Review of systems:: pertinent systems reviewed and negative unless documented below - *Neurologic Reports headache(s), Reports other (large hematoma forehead, L greatest), Denies numbness, Denies fainting, Denies weakness [facility] History I have reviewed the patient's past medical history: Yes Medical History: Reports:: Asthma, Cardiomyopathy, Coronary Artery Disease, Depression, Hyperlipidemia, Hypertension Denies:: Cancer, Diabetes Mellitus Type 1, Diabetes Mellitus Type 2, Internal Pacemaker, MRSA, Seizures *Have you ever received a pneumonia vaccine?: Yes (2 YEARS AGO) *Have you received a flu vaccine this season?: Yes Other Medical History: Reports: Arthritis, Cataracts Laterality Cases: Left: Arthroscopy Shoulder Other Surgeries: Yes: Appendectomy, Cardiac Catheterization, Coronary Stent, Hysterectomy-Partial, Tubal Ligation, Other (2 BACK SX (FX DISKS)). 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 history: Spontaneous Meds Home Medications Medication Instructions Recorded Confirmed Type aspirin 81 mg tablet,delayed 81 mg PO DAILY 03/21/18 03/20/19 History release cholecalciferol (vitamin D3) 1,000 1,000 unit PO DAILY 09/20/18 03/20/19 History unit capsule fluticasone propionate 110 1 inh INHALATION DAILY 90 Days g 09/20/18 03/20/19 History mcg/actuation HFA aerosol inhaler loratadine 10 mg tablet 10 mg PO DAILY 90 Days tab 09/20/18 03/20/19 History montelukast 10 mg tablet 10 mg PO DAILY 90 Days tab 09/20/18 03/20/19 History omega-3 fatty acids 1,000 mg 1,000 mg PO DAILY 09/20/18 03/20/19 History capsule omeprazole 40 mg capsule,delayed 40 mg PO DAILY 90 Days #90 cap 09/20/18 03/20/19 History release pitavastatin calcium 4 mg tablet 4 mg PO DAILY 09/20/18 03/20/19 History sertraline 100 mg tablet 100 mg PO DAILY 90 Days tab 09/20/18 03/20/19 History triamterene 37.5 1 cap PO DAILY 09/20/18 03/20/19 History mg-hydrochlorothiazide 25 mg capsule vitamin B complex tablet 1 tab PO DAILY 09/20/18 03/20/19 History potassium chloride ER 10 mEq 10 meq PO DAILY 09/21/18 03/20/19 History capsule,extended release budesonide-formoterol HFA 80 2 puff INHALATION BID 09/29/18 03/20/19 History mcg-4.5 mcg/actuation aerosol inhaler clonazepam 0.5 mg tablet 0.5 mg PO DAILY tab 01/19/19 03/20/19 History Allergies Allergy/AdvReac Type Severity Reaction Status Date / Time [id number]-Lav-Drg Reductase Allergy Intermediate myalgias Verified 03/20/19 16:34 Inhibitor atorvastatin AdvReac Intermediate rash Verified 03/20/19 16:34 Exam Vital signs and Labs for Last 24 Hours: Temp Pulse Resp BP Pulse Ox 97.7 F 68 17 128/54 L 96 03/21/19 07:49 03/21/19 07:49 03/21/19 07:49 03/21/19 07:49 03/21/19 08:00 Laboratory Results - last 24 hr 03/20/19 16:35: WBC 7.9, RBC 4.31, Hgb 13.2, Hct 41.4, MCV 96.1, MCH 30.8, MCHC 32.0, RDW 14.4, Plt Count 287, MPV 8.2, Neut % (Auto) 57.5, Lymph % (Auto) 31.2, White % (Auto) 6.5, Eos % (Auto) 4.1, Baso % (Auto) 0.7, Neut # (Auto) 4.6, Lymph # (Auto) 2.5, White # (Auto) 0.5, Eos # (Auto) 0.3, Baso # (Auto) 0.1 03/20/19 17:20: Sodium 137, Potassium 4.3, Chloride 103, Carbon Dioxide 26, Anion Gap 12.3, BUN 25 H, Creatinine 1.00, Estimated Creat Clear 46, Estimated GFR 54 L, Est GFR ( Amer) 65, Glucose 100, Calcium 9.2 03/21/19 06:04: WBC 7.2, RBC 3.87 L, Hgb 11.9 L, Hct 37.7, MCV 97.6, MCH 30.9, MCHC 31.6 L, RDW 14.3, Plt Count 233, MPV 8.3, Neut % (Auto) 56.5, Lymph % (Auto) 31.3, White % (Auto) 7.4, Eos % (Auto) 4.4, Baso % (Auto) 0.6, Neut # (Auto) 4.1, Lymph # (Auto) 2.3, White # (Auto) 0.5, Eos # (Auto) 0.3, Baso # (Auto) 0.0 03/21/19 06:04: Sodium 141, Potassium 4.7, Chloride 108 H, Carbon Dioxide 28, Anion Gap 9.7, BUN 25 H, Creatinine 0.99, Estimated Creat Clear 50, Estimated GFR 54 L, Est GFR ( Amer) 66, Glucose 80, Calcium 8.5 I & O for Last 24 hours: Intake & Output 03/18/19 03/19/19 03/20/19 03/21/19 11:59 11:59 11:59 11:59 Intake Total 634 / 634 Balance 634 / 634 Weight 150 lb - Constitutional no acute distress - *Routine HEENT Exam Head: Present: hematoma Eye: Present: EOMI, periorbital ecchymosis, periorbital swelling, periorbital tenderness ENT: Present: mucous membranes moist - *Routine Neck Exam Present: supple. Absent: tenderness - *Routine Respiratory Exam Present: CTA bilaterally - *Routine Cardiovascular Exam Present: RRR - *Routine Abdominal Exam Present: soft. Absent: tenderness - *Routine Extremities Exam Comments: L hand no gross deformity, mild ecchymosis, small abrasion over 5th metacarpal no rotational deformity or overlapping/scissoring digits L hand tender over 5th metacarpal shaft L hand SILT m/r/u distributions LUE AIN/PIN/ulnar nerves motor intact LUE palpable radial pulse L wrist R knee no ecchymosis, erythema, no effusion but mild soft tissue swelling no palpable gap in R patella, but significant tenderness unable to perform straight leg raise RLE +DF/PF/EHL RLE R calf soft, non-tender palpable pedal pulses RLE SILT distally RLE - *Routine Skin Exam Present: intact - *Routine Neurological Exam Present: alert, oriented X3, moving all extremities, normal tone, hearing grossly intact, normal speech. Absent: sensory deficit, motor deficit, altered mental status Results - Labs Result Diagrams: 03/21/19 06:04 03/21/19 06:04 Labs: Abnormal lab results 03/20/19 03/21/19 03/21/19 Range/Units 17:20 06:04 06:04 RBC 3.87 L (4.20-5.40) M/mm3 Hgb 11.9 L (12.2-16.2) g/dL MCHC 31.6 L (31.8-35.4) g/dL Chloride 108 H (98-107) mmol/L BUN 25 H 25 H (7-18) mg/dL Estimated GFR 54 L 54 L (>60) ml/min H & H 03/20/19 03/21/19 Range/Units 16:35 06:04 Hgb 13.2 11.9 L (12.2-16.2) g/dL Hct 41.4 37.7 (37.0-47.0) % All other labs normal. - Diagnostic results Wrist/Hand x-ray: image reviewed (non-displaced 5th metacarpal fracture ) Knee x-ray: image reviewed (mildly displaced R patella fracture) Assessment and Plan (1) Closed head injury Current visit: Yes Status: Acute Category: Medical Code(s): S09.90XA - Un specified injury of head, initial encounter (2) Contusion of left chest wall Current visit: Yes Status: Acute Category: Medical Code(s): S20.212A - Contusion of left front wall of thorax, initial encounter (3) Fracture of fifth metacarpal bone of left hand Current visit: Yes Status: Acute Category: Medical Code(s): S62.307A - Unspecified fracture of fifth metacarpal bone, left hand, initial encounter for closed fracture (4) Right patella fracture Current visit: Yes Status: Acute Category: Medical Code(s): S82.001A - Unspecified fracture of right patella, initial encounter for closed fracture (5) Traumatic hematoma of face Current visit: Yes Status: Acute Category: Medical Code(s): S00.83XA - Contusion of other part of head, initial encounter (6) COPD (chronic obstructive pulmonary disease) Current visit: No Status: Chronic Qualifiers: COPD type: unspecified COPD Qualified Code(s): J44.9 - Chronic obstructive pulmonary disease, unspecified Category: Medical Code(s): J44.9 - Chronic obstructive pulmonary disease, unspecified (7) Grade II diastolic dysfunction Current visit: No Status: Chronic Category: Medical Code(s): I51.9 - Heart disease, unspecified (8) HLD (hyperlipidemia) Current visit: No Status: Chronic Qualifiers: Hyperlipidemia type: mixed hyperlipidemia Qualified Code(s): E78.2 - Mixed hyperlipidemia Category: Medical Code(s): E78.5 - Hyperlipidemia, unspecified (9) HTN (hypertension) Current visit: No Status: Chronic Qualifiers: Hypertension type: essential hypertension Qualified Code(s): I10 - Essential (primary) hypertension Category: Medical Code(s): I10 - Essential (primary) hypertension - Assessment and plan all Dx Assessment and Plan for all problems:: 79yo F with L 5th metacarpal fracture + R patella fracture L 5th metacarpal fracture -- plan to treat non-operatively -- ulnar gutter splint applied -- elevate, ice PRN -- MAXIMINO LUE R patella fracture -- recommend surgical fixation -- continue knee immobilizer -- MAXIMINO RLE -- plan for surgery 03/23/2019 -- may be discharged and return for surgery ; will discuss with Dr. Ventura
--- NOTE | 2019-03-21 12:12 | Discharge Summary ---
General - General Admission date:: 03/20/19 Discharge date: 03/21/19 HPI HPI: 79-year-old female who was stepping over a curb yesterday and tripped. Fell sustaining trauma to her face, left hand, right knee. Denies any loss of consciousness. Was brought to the ER where she was scanned from head to toe. Found to have metacarpal fracture in her left hand and right patellar fracture. Denies any chest pain, shortness of breath, nausea, vomiting. Pain fairly well controlled overnight with minimal opioids needed. Required 1 dose of Taswell and 1 of morphine. Denies any syncope. Admitted to medicine for further management. Orthopedics consulted and plans to see the patient today. Of note, is on baby aspirin due to history of stent placement 9 years ago. This is complicated her bleeding. Hospital Course Hospital Course: Patient was observed overnight. Required minimal opiates for pain control. Assessed by orthopedics in the morning and determined to need surgical fixation of her right knee. Left hand placed in splint for continued immobilization and management. Preoperative assessment was performed. See H&P for risk stratification. Patient optimized to move forward with surgical procedure later this week. She is remained hemodynamically stable and there is a plan for surgical fixation later this week, she is medically stable for discharge home with continued immobilization of her right knee. Has a son that lives locally in [place] who she has stated can help care for her while she is at home. Orthopedic recommendations as follows: 79yo F with L 5th metacarpal fracture + R patella fracture L 5th metacarpal fracture -- plan to treat non-operatively -- ulnar gutter splint applied -- elevate, ice PRN -- MAXIMINO LUE R patella fracture -- recommend surgical fixation -- continue knee immobilizer -- NWB RLE -- plan for surgery 03/23/2019 -- may be discharged and return for surgery Denies confusion, loss of consciousness, chest pain, nausea, vomiting, shortness of breath. Medically stable for discharge home. Assessed by physical therapy. Okay to go home with assistance. Plan for returning for outpatient ORIF of right patella fracture Objective Vital signs: Temp Pulse Resp BP Pulse Ox 97.7 F 68 17 128/54 L 96 03/21/19 07:49 03/21/19 07:49 03/21/19 07:49 03/21/19 07:49 03/21/19 08:00 Narrative: Physical exam No acute distress, alert Bruising on left side of face periorbitally and of nose. Extraocular movement intact Lungs clear to auscultation, no apparent bruising on the chest. No wheeze rhonchi or rails Rate regular, no murmurs Abdomen soft, normoactive bowel sounds Left hand and volar splint, neurovascularly intact distal to injury Right knee in immobilizer, neurovascularly intact distal to injury, no edema Alert and oriented to person place and time Results Labs on day of discharge: Labs from last 24 hours 03/21/19 03/21/19 03/20/19 06:04 06:04 17:20 WBC 7.2 RBC 3.87 L Hgb 11.9 L Hct 37.7 MCV 97.6 MCH 30.9 MCHC 31.6 L RDW 14.3 Plt Count 233 MPV 8.3 Neut % (Auto) 56.5 Lymph % (Auto) 31.3 [place] % (Auto) 7.4 Eos % (Auto) 4.4 Baso % (Auto) 0.6 Neut # (Auto) 4.1 Lymph # (Auto) 2.3 [place] # (Auto) 0.5 Eos # (Auto) 0.3 Baso # (Auto) 0.0 Sodium 141 137 Potassium 4.7 4.3 Chloride 108 H 103 Carbon Dioxide 28 26 Anion Gap 9.7 12.3 BUN 25 H 25 H Creatinine 0.99 1.00 Estimated Creat Clear 50 46 Estimated GFR 54 L 54 L Est GFR ( Amer) 66 65 Glucose 80 100 Calcium 8.5 9.2 03/20/19 16:35 WBC 7.9 RBC 4.31 Hgb 13.2 Hct 41.4 MCV 96.1 MCH 30.8 MCHC 32.0 RDW 14.4 Plt Count 287 MPV 8.2 Neut % (Auto) 57.5 Lymph % (Auto) 31.2 [place] % (Auto) 6.5 Eos % (Auto) 4.1 Baso % (Auto) 0.7 Neut # (Auto) 4.6 Lymph # (Auto) 2.5 [place] # (Auto) 0.5 Eos # (Auto) 0.3 Baso # (Auto) 0.1 Sodium Potassium Chloride Carbon Dioxide Anion Gap BUN Creatinine Estimated Creat Clear Estimated GFR Est GFR ( Amer) Glucose Calcium DS: Diagnosis - Discharge Diagnosis (1) Closed head injury Status: Acute (2) Contusion of left chest wall Status: Acute (3) Fracture of fifth metacarpal bone of left hand Status: Acute (4) Right patella fracture Status: Acute (5) Traumatic hematoma of face Status: Acute (6) COPD (chronic obstructive pulmonary disease) Status: Chronic (7) Grade II diastolic dysfunction Status: Chronic (8) HLD (hyperlipidemia) Status: Chronic (9) HTN (hypertension) Status: Chronic Discharge Plan - Patient Discharge Instructions ACTIVITY: Limited activity, Other (NWB RLE) DIET: continue same diet Patient Instructions: Fracture, Foot Fracture, DI for Foot Fracture, Patella Fracture, DI for Fracture, DI for Patella Fracture - Follow up Plan Follow up with: Deshaun Dupree [Primary Care Provider] - 1 week Jessica Leavitt MD [Physician] - 2 weeks Disposition: Home, [facility] Medications: Home Medications Medication Instructions Recorded Confirmed Type aspirin 81 mg tablet,delayed 81 mg PO DAILY 03/21/18 03/20/19 History release cholecalciferol (vitamin D3) 1,000 1,000 unit PO DAILY 09/20/18 03/20/19 History unit capsule fluticasone propionate 110 1 inh INHALATION DAILY 90 Days g 09/20/18 03/20/19 History mcg/actuation HFA aerosol inhaler loratadine 10 mg tablet 10 mg PO DAILY 90 Days tab 09/20/18 03/20/19 History montelukast 10 mg tablet 10 mg PO DAILY 90 Days tab 09/20/18 03/20/19 History omega-3 fatty acids 1,000 mg 1,000 mg PO DAILY 09/20/18 03/20/19 History capsule omeprazole 40 mg capsule,delayed 40 mg PO DAILY 90 Days #90 cap 09/20/18 03/20/19 History release pitavastatin calcium 4 mg tablet 4 mg PO DAILY 09/20/18 03/20/19 History sertraline 100 mg tablet 100 mg PO DAILY 90 Days tab 09/20/18 03/20/19 History triamterene 37.5 1 cap PO DAILY 09/20/18 03/20/19 History mg-hydrochlorothiazide 25 mg capsule vitamin B complex tablet 1 tab PO DAILY 09/20/18 03/20/19 History potassium chloride ER 10 mEq 10 meq PO DAILY 09/21/18 03/20/19 History capsule,extended release budesonide-formoterol HFA 80 2 puff INHALATION BID 09/29/18 03/20/19 History mcg-4.5 mcg/actuation aerosol inhaler clonazepam 0.5 mg tablet 0.5 mg PO DAILY tab 01/19/19 03/20/19 History Hydrocod/Acet 5/325 mg [Taswell 1 tab PO TID PRN 3 Days #9 tab 03/21/19 Rx 5/325mg tablet] Prescriptions/Medication Reconciliation: New Hydrocod/Acet 5/325 mg [Taswell 5/325mg tablet] 1 tab PO TID PRN 3 Days #9 tab PRN Reason: Mild To Moderate Pain Continued omeprazole 40 mg capsule,delayed release 40 mg PO DAILY 90 Days #90 cap sertraline 100 mg tablet 100 mg PO DAILY 90 Days tab loratadine 10 mg tablet 10 mg PO DAILY 90 Days tab montelukast 10 mg tablet 10 mg PO DAILY 90 Days tab fluticasone propionate 110 mcg/actuation HFA aerosol inhaler 1 inh INHALATION DAILY 90 Days g cholecalciferol (vitamin D3) 1,000 unit capsule 1,000 unit PO DAILY omega-3 fatty acids 1,000 mg capsule 1,000 mg PO DAILY triamterene 37.5 mg-hydrochlorothiazide 25 mg capsule 1 cap PO DAILY pitavastatin calcium 4 mg tablet 4 mg PO DAILY budesonide-formoterol HFA 80 mcg-4.5 mcg/actuation aerosol inhaler 2 puff INHALATION BID aspirin 81 mg tablet,delayed release 81 mg PO DAILY vitamin B complex tablet 1 tab PO DAILY potassium chloride ER 10 mEq capsule,extended release 10 meq PO DAILY clonazepam 0.5 mg tablet 0.5 mg PO DAILY tab - Problem Reconciliation Problems Reviewed?: Yes
== END 2019-03-21 14:30 | disposition home or self-care (01) ==
LOC: ER 16:28 → 2ND 16:28
PROVIDERS: ADMIT Internal Medicine Adolescent Medicine; ATTEND Internal Medicine Adolescent Medicine
CPT/HCPCS: 36415; 70450; 70486; 71010; 71045; 71100; 71275; 72125; 72170; 73130; 73562; 80048; 85025; 96374; 97162; 99284; G0378; Q9967

== ENCOUNTER → 2019-03-30 10:42 | Outpatient (CLI) | payer MEDICARE, OTHER, SELFPAY ==
--- NOTE | 2019-03-30 10:49 | XR_ITS ---
PROCEDURE: XR KNEE RT 3V CLINICAL INDICATION: Post OP: ORIF Patella COMPARISON: XR KNEE RT 2V from 03/23/2019 FINDINGS: There are 2 threaded screws vertically oriented reducing the patellar fracture in anatomic alignment. There is a encircling wire around the patella from superior to inferior borders of the threaded screws. The soft tissues appear normal. The stabilizing spleen is seen on either side of the knee. IMPRESSION: Satisfactory ORIF patellar fracture Dictated by: Dr. Justo Gutierrez MD 03/30/2019 12:[address] Justo Gutierrez MD in [place] 03/30/2019 12:02
== END ==
PROVIDERS: PCP Internal Medicine; Visit Provider Orthopaedic Surgery
DX: S82.001A Unspecified fracture of right patella, initial encounter for closed fracture (principal)
CPT/HCPCS: 73562

== ENCOUNTER → 2019-04-03 10:47 | Outpatient (CLI) | payer MEDICARE, OTHER, SELFPAY ==
--- NOTE | 2019-04-03 10:53 | XR_ITS ---
PROCEDURE: XR WRIST LT MIN 3V CLINICAL INDICATION: wrist FX Follow-up fracture COMPARISON: XR HAND LT MIN 3V from 03/20/2019 FINDINGS: The study is obtained through a cast. Mildly displaced fracture involves the mid shaft of the 5th metacarpal. There is 3 mm lateral displacement of the distal fracture fragment.. There is good alignment. There are degenerative changes of the wrist IMPRESSION: Mildly displaced midshaft 5th metacarpal Dictated by: Austen Huang MD 04/03/2019 13:20 Electronically signed by Austen Huang MD in [place] 04/03/2019 13:20
== END ==
PROVIDERS: PCP Internal Medicine; Visit Provider Orthopaedic Surgery
DX: S62.102A Fracture of unspecified carpal bone, left wrist, initial encounter for closed fracture (principal)
CPT/HCPCS: 73110

== ENCOUNTER → 2019-04-20 13:36 | Outpatient (CLI) | payer MEDICARE, OTHER, SELFPAY ==
--- NOTE | 2019-04-20 13:41 | XR_ITS ---
PROCEDURE: XR HAND LT MIN 3V CLINICAL INDICATION: Hand Fx Follow-up fracture COMPARISON: XR HAND LT MIN 3V from 03/20/2019 XR WRIST LT MIN 3V from 04/03/2019 FINDINGS: A splint has been placed along the medial aspect of the hand. There is a mildly displaced fracture involving the mid aspect of the 5th metacarpal. The distal fracture fragment is displaced radially by approximately 4 mm. The displacement may be slightly greater compared to 04/03/2019. Bony details obscured by the overlying splint. Other findings:None. IMPRESSION: Mildly displaced 5th metacarpal fracture Dictated by: Austen Huang MD 04/20/2019 15:47 Electronically signed by Austen Huang MD in [place] 04/20/2019 15:47
--- NOTE | 2019-04-20 13:41 | XR_ITS ---
PROCEDURE: XR KNEE RT 2V CLINICAL INDICATION: Patella FX Follow-up fracture COMPARISON: XR KNEE RT 3V from 03/20/2019 XR KNEE RT 3V from 03/30/2019 FINDINGS: Exam is obtained with the patient's brace in place. Status post ORIF patellar fracture with 2 vertical screws and cerclage wires with good alignment overall not significantly changed. Other findings:None. IMPRESSION: Good alignment status post ORIF patellar fracture Dictated by: Austen Huang MD 04/20/2019 15:48 Electronically signed by Austen Huang MD in [place] 04/20/2019 15:48
== END ==
PROVIDERS: PCP Internal Medicine; Visit Provider Orthopaedic Surgery
DX: S82.001A Unspecified fracture of right patella, initial encounter for closed fracture; S62.307A Unspecified fracture of fifth metacarpal bone, left hand, initial encounter for closed fracture
CPT/HCPCS: 73130; 73560

== ENCOUNTER → 2019-04-28 12:52 | Outpatient (CLI) | payer MEDICARE, OTHER, SELFPAY ==
--- NOTE | 2019-04-28 12:58 | XR_ITS ---
PROCEDURE: XR KNEE RT 2V CLINICAL INDICATION: knee pain Postop right knee COMPARISON: XR KNEE RT 3V from 03/20/2019 XR KNEE RT 3V from 03/30/2019 XR KNEE RT 2V from 04/20/2019 FINDINGS: Status post ORIF patellar fracture with longitudinal screws and cerclage wire in place with good alignment of the lower patellar fracture. There is overlying artifact from the brace. IMPRESSION: Good alignment patellar fracture no change Dictated by: Austen Huang MD 04/28/2019 17:51 Electronically signed by Austen Huang MD in [place] 04/28/2019 17:51
[2019-04-28 15:11] LABS: Basophils # 0.1 K/mm3 (0-0.2); Basophils % 0.6 % (0.1-2.0); Eosinophils # 0.2 K/mm3 (0.0-0.4); Eosinophils % 2.6 % (0.1-12.0); Hemoglobin 13.2 g/dL (12.2-16.2); Lymphocytes # 2.2 K/mm3 (0.7-4.5); Lymphocytes % 29.1 % (10-50); Mean Corpuscular HGB Conc 30.8 g/dL (31.8-35.4); Mean Corpuscular Hemoglobin 29.3 pg (27.0-31.2); Mean Corpuscular Volume 95.1 fl (81-99); Mean Platelet Volume 7.7 fl (7.4-10.4); Monocytes # 0.5 K/mm3 (0.1-1.0); Monocytes % 6.4 % (1.7-9.3); Neutrophils # 4.6 K/mm3 (1.8-7.8); Neutrophils % 61.2 % (37.0-80.0); Platelet Count 302 K/mm3 (142-424); Red Blood Count 4.52 M/mm3 (4.20-5.40); Red Cell Distribution Width 15.1 % (11.5-17.5); White Blood Count 7.4 K/mm3 (4.8-10.8)
[2019-04-28 16:55] LABS: Anion Gap 18.6 mEq/L (5-15); Blood Urea Nitrogen 26 mg/dL (7-18); Calcium 9.4 mg/dL (8.5-10.1); Carbon Dioxide 24 mmol/L (21.0-32.0); Chloride 101 mmol/L (98-107); Creatinine,Serum 1.06 mg/dL (0.55-1.02); Estimated Glomerular Filt Rate 50 ml/min (>60); GFR (African American) 61 ML/MIN (>60); Glucose 93 mg/dL (74-106); Potassium 4.6 mmoL/L (3.5-5.1); Sodium 139 mmol/L (136-145)
== END ==
PROVIDERS: PCP Internal Medicine; Visit Provider Orthopaedic Surgery
DX: S82.001A Unspecified fracture of right patella, initial encounter for closed fracture (principal); Z01.818 Encounter for other preprocedural examination
CPT/HCPCS: 36415; 73560; 80048; 85025

== ENCOUNTER → 2019-05-08 14:10 | Outpatient (CLI) | payer MEDICARE, OTHER, SELFPAY ==
--- NOTE | 2019-05-08 14:16 | XR_ITS ---
PROCEDURE: XR KNEE RT 2V CLINICAL INDICATION: post op hardware removal in brace COMPARISON: XR KNEE RT 2V from 04/28/2019 FINDINGS: When compared to the previous right knee film from 04/28/2019 the cerclage wires have been removed leaving the vertically i oriented threaded screws in place with good alignment of the patellar fracture. IMPRESSION: No acute findings. Dictated by: Dr. Justo Gutierrez MD 05/08/2019 15:[address] Justo Gutierrez MD in [place] 05/08/2019 15:02
--- NOTE | 2019-05-08 14:16 | XR_ITS ---
PROCEDURE: XR HAND LT MIN 3V CLINICAL INDICATION: 5th metacarpal fracture Follow-up COMPARISON: XR HAND LT MIN 3V from 04/20/2019 FINDINGS: The spiral oblique fracture of the 5th metacarpal is again seen with early callus formation at the fracture site. There has been no change in alignment from the previous films taken through the cast 04/20/2019. The remaining metacarpals in all of phalanges appear intact. There generalized underlying osteopenia. IMPRESSION: Early healing spiral oblique fracture 5th metacarpal Dictated by: Dr. Justo Gutierrez MD 05/08/2019 14:[address] Justo Gutierrez MD in [place] 05/08/2019 14:58
== END ==
PROVIDERS: PCP Internal Medicine; Visit Provider Orthopaedic Surgery
DX: S82.001A Unspecified fracture of right patella, initial encounter for closed fracture (principal)
CPT/HCPCS: 73130; 73560

== ENCOUNTER → 2019-06-16 13:05 | Outpatient (CLI) | payer MEDICARE, OTHER, SELFPAY ==
--- NOTE | 2019-06-16 13:11 | XR_ITS ---
PROCEDURE: XR KNEE RT 3V CLINICAL INDICATION: fu right patella fracture Follow-up patellar fracture COMPARISON: XR KNEE RT 3V from 03/30/2019 XR KNEE RT 2V from 04/20/2019 XR KNEE RT 2V from 04/28/2019 XR KNEE RT 2V from 05/08/2019 FINDINGS: The brace has been removed. Two longitudinal screws stabilize the mid to lower patellar fracture. Fracture line is less apparent. Incidental note is made of some osteosclerosis in the proximal tibia just distal to the interspinous region. Other findings:None. IMPRESSION: Good alignment healing patellar fracture Dictated by: Austen Huang MD 06/16/2019 13:57 Electronically signed by Austen Huang MD in [place] 06/16/2019 13:57
== END ==
PROVIDERS: PCP Internal Medicine; Visit Provider Orthopaedic Surgery
DX: S82.001A Unspecified fracture of right patella, initial encounter for closed fracture (principal)
CPT/HCPCS: 73562

== ENCOUNTER → 2019-12-26 12:52 | Outpatient (POV) | payer MEDICARE, OTHER, SELFPAY | PROVIDERS: Visit Provider Dermatology | DX: Z00.00 Encounter for general adult medical examination without abnormal findings (principal) ==

== ENCOUNTER → 2020-01-08 07:37 | Outpatient (CLI) | payer MEDICARE, OTHER, SELFPAY ==
[2020-01-08 07:52] LABS: Basophils # 0.1 K/mm3 (0-0.2); Basophils % 0.8 % (0.1-2.0); Eosinophils # 0.2 K/mm3 (0.0-0.4); Eosinophils % 2.6 % (0.1-12.0); Hematocrit 38.9 % (37.0-47.0); Lymphocytes # 2.1 K/mm3 (0.7-4.5); Lymphocytes % 28.6 % (10-50); Mean Corpuscular HGB Conc 33.3 g/dL (31.8-35.4); Mean Corpuscular Hemoglobin 30.2 pg (27.0-31.2); Mean Corpuscular Volume 90.7 fl (81-99); Monocytes # 0.4 K/mm3 (0.1-1.0); Neutrophils # 4.5 K/mm3 (1.8-7.8); Neutrophils % 62.1 % (37.0-80.0); Platelet Count 289 K/mm3 (142-424); Red Blood Count 4.29 M/mm3 (4.20-5.40); Red Cell Distribution Width 15.1 % (11.5-17.5); White Blood Count 7.3 K/mm3 (4.8-10.8)
--- NOTE | 2020-01-08 07:52 | MR_ITS ---
PROCEDURE: MR LUMBAR SPINE WO CON CLINICAL INDICATION: LUMBAGO Pt. C/o lbp with rt leg sciatica. Pt states she had kyphoplasty 10 years ago. Prior L spine xrays 04/22/2018 COMPARISON: CT SPLUMBW CT lumbar spine w con from 11/17/2017 TECHNIQUE: Standard multiplanar multiecho sequences are performed without contrast. 3-D MIP and myelographic images are also rendered and reviewed FINDINGS: Normal alignment. The spinal cord ends at the L1 level. T11-T12 and T12-L1 are unremarkable. L1-L2: There is degenerative disc disease at L1-L2 with minimal bulging disc slightly eccentric toward the left. Kyphoplasty changes are present at L2 with old wedge compression change. There is retro listhesis of the posterior superior aspect of L1 by 8 mm. There is mild bilateral lateral recess narrowing and mild bilateral foraminal narrowing. L2-L3: Prior vertebroplasty at L3 with hypointense changes. Mild facet and ligamentum hypertrophy. There is minimal loss of height of the inferior endplate of L3 not significantly changed. There is minimal retropulsion of the posterior inferior aspect of the L3 vertebral body by 3 mm L3-L4: Minimal retropulsion of the posterior inferior aspect of L3 by 3 mm along with facet and ligamentum hypertrophy with mild bilateral lateral recess narrowing and mild to moderate right foraminal narrowing and mild left foraminal narrowing. L4-5: Mild facet and ligamentum hypertrophy. L5-S1: Mild facet ligamentum hypertrophy. No extruded herniated disc is evident. Incidental note is made of bilateral renal cysts IMPRESSION: 1. L1-L2: There is degenerative disc disease at L1-L2 with minimal bulging disc slightly eccentric toward the left. Kyphoplasty changes are present at L2 with old wedge compression change. There is retro listhesis of the posterior superior aspect of L1 by 8 mm. There is mild bilateral lateral recess narrowing and mild bilateral foraminal narrowing. 2. L2-L3: Prior vertebroplasty at L3 with hypointense changes. Mild facet and ligamentum hypertrophy. There is minimal loss of height of the inferior endplate of L3 not significantly changed. There is minimal retropulsion of the posterior inferior aspect of the L3 vertebral body by 3 mm 3. L3-L4: Minimal retropulsion of the posterior inferior aspect of L3 by 3 mm along with facet and ligamentum hypertrophy with mild bilateral lateral recess narrowing and mild to moderate right foraminal narrowing and mild left foraminal narrowing. Dictated by: Austen Huang MD 01/09/2020 09:51 Austen Huang MD in [place] 01/09/2020 09:51
[2020-01-08 07:55] LABS: Chloride 103 mmol/L (98-107); Sodium 139 mmol/L (136-145)
[2020-01-08 07:56] LABS: Potassium 4.6 mmoL/L (3.5-5.1)
[2020-01-08 07:58] LABS: Alanine Aminotransferase 19 U/L (12-78); Albumin Level 4.4 g/dl (3.5-5.0); Albumin/Globulin Ratio 1.5 (1.1-1.8); Alkaline Phosphatase 79 U/L (38-126); Anion Gap 10.6 mEq/L (5-15); Aspartate Amino Transferase 32 U/L (14-36); Bilirubin,Total 0.5 mg/dl (0.2-1.3); Blood Urea Nitrogen 25 mg/dl (7-17); Carbon Dioxide 30 mmol/L (22.0-30.0); Cholesterol 228 mg/dl (140-200); Estimated Glomerular Filt Rate 48 ml/min (>60); GFR (African American) 58 ML/MIN (>60); Total Protein,Serum 7.4 g/dl (6.3-8.2); Triglycerides 76 mg/dl (30-150); VLDL Cholesterol 15 mg/dL (0-40)
[2020-01-08 07:59] LABS: Glucose 100 mg/dl (74-100)
[2020-01-08 08:08] LABS: Chol/HDL Ratio 1.9 (1-3.5); HDL Cholesterol 121 mg/dl (40-60)
[2020-01-08 08:10] LABS: Direct LDL Cholesterol 72.07 mg/dL (100-129)
== END ==
PROVIDERS: PCP Internal Medicine; Visit Provider Internal Medicine
DX: I10 Essential (primary) hypertension (principal); I25.10 Atherosclerotic heart disease of native coronary artery without angina pectoris; E78.5 Hyperlipidemia, unspecified
CPT/HCPCS: 36415; 72148; 76376; 80053; 80061; 85025

== ENCOUNTER → 2020-02-01 10:43 | Outpatient (POV) | payer MEDICARE, OTHER, SELFPAY ==
[2020-02-01 11:20] VITALS: BP 145/74; PULSE 74; RESP 18; O2SAT 98; BMI 25.4
--- NOTE | 2020-02-01 12:34 | HMH.PMCON ---
Assessment and Plan (1) Degenerative joint disease (DJD) of lumbar spine Current visit: Yes Status: Chronic Category: Medical Code(s): M47.816 - Spondylosis without myelopathy or radiculopathy, lumbar region (2) Lumbar radiculopathy Current visit: Yes Status: Chronic Category: Medical Code(s): M54.16 - Radiculopathy, lumbar region (3) Facet arthropathy Current visit: Yes Status: Chronic Category: Medical Code(s): M47.819 - Spondylosis without myelopathy or radiculopathy, site unspecified (4) Sacroiliitis Current visit: Yes Status: Chronic Category: Medical Code(s): M46.1 - Sacroiliitis, not elsewhere classified (5) Trochanteric bursitis Current visit: Yes Status: Chronic Category: Medical Code(s): M70.60 - Trochanteric bursitis, unspecified hip - Assessment and plan all Dx Assessment and Plan for all problems:: The patient has tenderness noted over her right SI joint as well as her right trochanteric bursa. She is having pain on the left side, however, at this time it is worse on the right side. We will schedule the patient for right SI joint injection as well as right trochanteric bursa injection. Patient also has some facet arthropathy noted on her MRI. She does report to have some pain with leaning forward or as well as turning at the waist. Initially we will start with the SI injection and trochanteric bursa injection to see if this gives her relief. She and I did discuss possible medial branch block/facet joint injections if she does not get any relief with the SI injection/trochanteric bursa injection. We will follow-up with her after her injections to reassess her symptoms. Patient has been instructed to contact the clinic if she has any concerns before next appointment. Dr. Gastelum has reviewed this note and agrees with this plan of care. This note was dictated using voice recognition software and make contain errors or omissions. HPI - Data of Consult Patient: new to practice Consult date: 02/01/20 Requesting Physician: Carie Man APRN Primary Care Provider: Deshaun Dupree - Consult Narrative Reason for consult: low back pain, hip pain History of present illness: Ms. Andino is a 79 year old female who presents today for consultation for low back pain with radiation into her right hip and right lateral thigh area. Patient says she also has pain in her left hip. Patient does have a history of kyphoplasty. She says that her pain is worse with standing and walking and radiates into her right lateral thigh area. Patient says the pain does improve with sitting. She rates her pain a 6 out of 10 today. She says that she is generally very active and does a lot of walking, however, she has had to slow down with her exercising regimen due to the intense pain in her lower extremity. She says she has tenderness noted over her low back area that feels like a bruising sensation . She says that the pain does radiate into her hips. The pain is worse at this time on her right hip, however, the pain does come and go onto her left low back area and left hip as well. Patient says that she has tried both ibuprofen and tizanidine with no relief. He does try to perform a home stretching program, however, the pain is too intense at this time. Does have imaging of her lumbar spine. CC: Carie Man APRN [facility] [place] History I have reviewed the patient's past medical history: Yes Medical History: Reports:: Asthma, Cardiomyopathy, Coronary Artery Disease, Depression, Hyperlipidemia, Hypertension Denies:: Cancer, Diabetes Mellitus Type 1, Diabetes Mellitus Type 2, Internal Pacemaker, MRSA, Seizures *Have you ever received a pneumonia vaccine?: Yes *Have you received a flu vaccine this season?: Yes Other Medical History: Reports: Arthritis, Cataracts. Denies: Blood Transfusion Reaction Laterality Cases: Left: Arthroscopy Shoulder Other Surgeries: Yes: Appendectomy, Cardiac Catheterization, Coron
== END ==
PROVIDERS: PCP Internal Medicine; Visit Provider Clinical Nurse Specialist Family Health
DX: M47.896 Other spondylosis, lumbar region (principal); M54.16 Radiculopathy, lumbar region; M46.1 Sacroiliitis, not elsewhere classified; M70.60 Trochanteric bursitis, unspecified hip
CPT/HCPCS: 99202

== ENCOUNTER 2020-02-12 13:44 | Day surgery (SDC) | payer MEDICARE, OTHER, SELFPAY ==
[2020-02-12 14:14] VITALS: BP 148/77; BP 148/85; PULSE 67; PULSE 71; RESP 18; TEMP 36.6; O2SAT 96; O2SAT 98; BMI 25.6
[2020-02-12 14:27] VITALS: BP 118/74; PULSE 85; RESP 18; O2SAT 98
[2020-02-12 14:28] VITALS: BP 118/74; PULSE 79; RESP 18; O2SAT 99
--- NOTE | 2020-02-12 14:38 | HMH.PMPROC ---
- Procedure Date: 02/12/20 Time: 14:38 Anesthesiologist:: Carie Man APRN Complications:: None Pre-procedure Diagnosis:: Right sacroiliitis, right trochanteric bursitis Post-procedure Diagnosis:: Same Indications for Procedure:: Patient is a pleasant 79-year-old white female who presents today for right SI joint pain as well as right trochanteric bursa pain. She is being treated for for sacroiliitis and right trochanteric bursitis. She rates her pain a 7 out of 10 today. She has tenderness over her right SI joint and right trochanteric bursa. We will perform injections today to see if she gets relief. Physical exam General: Alert and oriented x3, no acute distress, pleasant and cooperative, [on room air] Lungs: Respirations even and unlabored, symmetrical chest expansion Eyes: PERRL Musculoskeletal: Flexion and extension of lumbar spine somewhat guarded secondary to pain, deep tendon reflexes normal, strength in upper and lower extremities [5/5], [abnormal gait noted], positive Gillett's test, positive Johanna's test, positive distraction test Neurological: Speech clear, soil chemist equal, no gross sensory deficit Procedure Details:: Informed consent was obtained and the risk and benefits of the procedure were explained to the patient. The patient was taken to the procedure room and noninvasive monitors were placed including noninvasive blood pressure cuff and pulse oximeter. The patient was placed prone on the procedure table. The right hip was cleansed using chlorhexidine as a cleansing solution. C-arm fluoroscopy was used to view the right SI joint. The skin and subcutaneous tissue were anesthetized using lidocaine 1.5% and 25-gauge needle. After this a 22-gauge spinal needle was inserted under fluoroscopic guidance into the inferior aspect of the right SI joint. Omnipaque dye was injected and good spread was seen throughout the joint. After this approximately 5 mils of bupivacaine 0.25% and Depo-Medrol 40 mg were incrementally injected into the right sacroiliac joint. Then proceeded to the right trochanteric bursa. A 22-gauge spinal needle was inserted under fluoroscopic guidance into the right trochanteric bursa. Omnipaque dye was injected and good spread was seen throughout the joint. After this, approximately 5 mL of bupivacaine 0.25% and Depo-Medrol 40 mg were incrementally injected into the right trochanteric bursa. The patient tolerated the procedure without any complications. Plan and Disposition:: We will see the patient back in the clinic in 2 weeks to reassess her symptoms. She has been instructed to contact the clinic she has any concerns for next ointment. The patient and I specifically discussed risk factors for COVID19. These risks include, but are not limited to age greater than 60, heart or lung disease, diabetes, immunosuppression, and travel. We also discussed NSAIDs may worsen COVID19 infection or symptoms. Patient should not use NSAIDs to treat COVID19 signs or symptoms. Patient was also informed that any type of corticosteroid of any form (oral or injection) will decrease the patient's immune system response and may increase the likelihood of COVID19 infection [address] symptoms[address] Gastelum has reviewed this note and agrees with this plan of care. This note was dictated using voice recognition software and make contain errors or omissions.
== END 2020-02-12 14:40 | disposition home or self-care (01) ==
LOC: SC.PAINP 13:46
PROVIDERS: PCP Internal Medicine; Visit Provider Clinical Nurse Specialist Family Health
DX: M46.1 Sacroiliitis, not elsewhere classified (principal); M70.61 Trochanteric bursitis, right hip; I10 Essential (primary) hypertension; E78.5 Hyperlipidemia, unspecified; J44.9 Chronic obstructive pulmonary disease, unspecified; K21.9 Gastro-esophageal reflux disease without esophagitis; G25.81 Restless legs syndrome; Z87.39 Personal history of other diseases of the musculoskeletal system and connective tissue; Z95.818 Presence of other cardiac implants and grafts; Z88.8 Allergy status to other drugs, medicaments and biological substances; Z79.82 Long term (current) use of aspirin; Z79.899 Other long term (current) drug therapy
CPT/HCPCS: 20610; 27096; 77002; G0260; J1030; Q9966

== ENCOUNTER → 2020-02-26 09:56 | Outpatient (POV) | payer MEDICARE, OTHER, SELFPAY ==
[2020-02-26 10:08] VITALS: BP 125/85; PULSE 85; RESP 18; O2SAT 98; BMI 25.7
--- NOTE | 2020-02-26 10:17 | P.CONS_ITS ---
[facility] Pain Management SOAP Note Subjective:: Patient is a pleasant 80-year-old white female who presents today for follow-up after right SI joint injection right greater trochanteric bursa injection. Patient states that she got 80% relief of her symptomology with her injection rating her pain today at 3 out of 10. She is much more functional. The only pain she has now is directly over her right SI joint. Patient has a positive Lora test, distraction test, Johanna's test, SI joint compression test on the right side. We discussed repeating the right SI joint injection to see if she gets additional relief. She would like to move forward with this. ROS General: no recent weight change, no fever, no sleep disturbances Respiratory: no cough, no shortness of air, no recurring pulmonary infections Cardiovascular/Peripheral Vascular: No chest pain, No palpitations, no edema, no shortness of breath. Gastrointestinal: no new onset incontinence, normal bowel movements reported Genitourinary: no new onset incontinence Musculoskeletal: Right SI joint pain Psychiatric: normal mood/ affect Neurological: [denies new onset weakness in extremities], [denies new onset balance issues] Objective:: Physical Exam General: Alert and oriented x3, no acute distress, pleasant and cooperative, [on room air] Lungs: Resps E/U, Symmetrical chest expansion, Eyes: PERRL Musculoskeletal: Flexion and extension of lumbar spine somewhat guarded secondary to pain, deep tendon reflexes normal, strength in upper and lower extremities [5/5], [abnormal gait noted] Neurological: speech clear, stitching machine feeder or offbearer equal, no gross sensory deficits Assessment:: Sacroiliitis Plan:: We will schedule her for a right SI joint injection given the efficacy of the last one. I will follow-up with her after this reassess her symptoms at that time she has been instructed to call the office if she has any issues prior to her next appointment. Dr. Gastelum has reviewed this note and agrees with this plan of care. This note was dictated using voice recognition software and may con tain errors or omissions [facility] History I have reviewed the patient's past medical history: Yes Medical History: Reports:: Asthma, Cardiomyopathy, Coronary Artery Disease, Depression, Hyperlipidemia, Hypertension Denies:: Cancer, Diabetes Mellitus Type 1, Diabetes Mellitus Type 2, Internal Pacemaker, MRSA, Seizures *Have you ever received a pneumonia vaccine?: No *Have you received a flu vaccine this season?: No Other Medical History: Reports: Arthritis, Cataracts. Denies: Blood Transfusion Reaction Laterality Cases: Left: Arthroscopy Shoulder Other Surgeries: Yes: Appendectomy, Cardiac Catheterization, Coronary Stent, Hysterectomy-Partial, Tubal Ligation, Other (2 BACK SX (FX DISKS)). 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
== END ==
PROVIDERS: PCP Internal Medicine; Visit Provider Clinical Nurse Specialist Family Health
DX: M46.1 Sacroiliitis, not elsewhere classified (principal)
CPT/HCPCS: 99212

== ENCOUNTER 2020-03-04 14:49 | Day surgery (SDC) | payer MEDICARE, OTHER, SELFPAY ==
[2020-03-04 15:49] VITALS: BP 129/59; PULSE 84; RESP 20; TEMP 36.1; O2SAT 91; BMI 25.9
[2020-03-04 16:41] VITALS: BP 132/85; PULSE 85
[2020-03-04 16:42] VITALS: BP 125/88; PULSE 85; RESP 18; O2SAT 98
--- NOTE | 2020-03-04 16:44 | HMH.PMPROC ---
- Procedure Date: 03/04/20 Time: 16:44 Anesthesiologist:: Alyssia Jones APRN Complications:: None Pre-procedure Diagnosis:: Right sacroiliitis Post-procedure Diagnosis:: Same Indications for Procedure:: Patient is a very pleasant 80-year-old white female who presents today for right SI joint injection. She has had this in the past with 80% relief of her symptomology. She rates her pain today a 5 out of 10. She has a positive Lora test SI joint compression test, Johanna's test, distraction test on the right side. Procedure Details:: Informed consent was obtained and the risks and benefits of the procedure were explained to the patient. Patient was taken to the procedure room. Patient was placed prone on the procedure table. The [right] hip was prepped using ChloraPrep as a cleansing solution. The skin and subcutaneous tissues were anesthetized using lidocaine. Using fluoroscopic guidance I placed a 22-gauge spinal needle into the inferior aspect of the [right] SI joint. After this I injected 5 mL bupivacaine 0.25% and Depo-Medrol 40 mg into the [right] SI joint. The patient tolerated the procedure well with no complication. Plan and Disposition:: I will follow-up with the patient several weeks to reassess her symptoms at that time she has been instructed to call the office if she has any issues prior to her next appointment if she does not get long-term relief from that she may need a epidural steroid injection. Dr. Gastelum has reviewed this note and agrees with this plan of care. This note was dictated using voice recognition software and may contain errors or omissions
[2020-03-04 16:56] VITALS: BP 133/64; PULSE 84; RESP 18; O2SAT 93
== END 2020-03-04 16:57 | disposition home or self-care (01) ==
LOC: SC.PAINP 14:50
PROVIDERS: PCP Internal Medicine; Visit Provider Clinical Nurse Specialist Family Health
DX: M46.1 Sacroiliitis, not elsewhere classified (principal)
CPT/HCPCS: 27096; G0260; J1040; Q9966

== ENCOUNTER → 2020-03-05 15:51 | Outpatient (CLI) | payer MEDICARE, OTHER, SELFPAY ==
--- NOTE | 2020-03-05 15:53 | MM_ITS ---
PROCEDURE: MM DIG SCREENING MAMM BI W/CAD Digital Breast Tomosynthesis Included CLINICAL INDICATION: screening xmg Personal or family history of breast cancer. COMPARISON: MG DMSB DIG MAMM-SCREEN CORDELL from 10/18/2014 MG DMSB DIG MAMM-SCREEN CORDELL from 08/26/2015 MG DMSB DIG MAMM-SCREEN CORDELL W/CAD from 09/29/2016 TECHNIQUE: Standard CC and MLO images and 3D Tomosynthesis was obtained. R2 CAD reviewed. FINDINGS: The breasts are composed primarily of fat with minimal scattered fibroglandular densities in each breast. There is a stable small nodular lesion outer quadrant left breast. There is no suspicious lesion in either breast and no suspicious microcalcifications. IMPRESSION: Fatty type breast parenchyma with no suspicious lesions seen BI-RAD Category: 2 Benign Finding(s) FOLLOW-UP: 1YR 1 Year Follow-up (A letter has been sent to the patient regarding results of the study.) Dictated by: Dr. Justo Gutierrez MD 03/06/2020 14:03 Dr. Justo Gutierrez MD in [place] 03/06/2020 14:03
== END ==
PROVIDERS: PCP Internal Medicine; Visit Provider Nurse Practitioner Obstetrics & Gynecology
DX: Z12.31 Encounter for screening mammogram for malignant neoplasm of breast (principal)
CPT/HCPCS: 77063; 77067

== ENCOUNTER → 2020-03-28 11:00 | Outpatient (POV) | payer MEDICARE, OTHER, SELFPAY ==
[2020-03-28 11:29] VITALS: BP 143/77; PULSE 77; RESP 18; TEMP 36.8; O2SAT 98; BMI 25.6
--- NOTE | 2020-03-28 12:06 | HMH.PAINSOAP ---
[facility] Pain Management SOAP Note Subjective:: Patient is a 75-year-old white female who presents today for follow-up after right SI joint injection. She has been treated for chronic right sacroiliitis. Patient has had the injections twice. She got approximately 100% relief for about a week. She says that she has not felt this well in many years. She has had a history of kyphoplasty x2 with Dr. Stephania de leon in [facility]. Following her kyphoplasty's, Dr. Wheatley that did want to perform a right SI stabilization procedure on her at that time, however, the patient was concerned with the extensiveness of the procedure. As result, she postpone any surgical procedure. She states she did have a hard time with kyphoplasty with Dr. Stephania de leon. Patient says that during the week following her injection, she was able to paint her entire den by herself. She says that her pain did return shortly after that. She rates her pain a 3 out of 10 today. Her pain is worse with standing and walking. Skin right low back area, right hip, and right lateral thigh area. She has tried conservative therapies of physical therapy, home stretching, and anti-inflammatories for greater than 6 weeks. Ice and heat therapies have not worked for her. The injections have been the only thing that have taken the pain away for a short time. Review of Systems General: No recent weight changes, no fever, no sleep disturbances Respiratory: No cough, no shortness of air, no recurring pulmonary infections Cardiovascular/peripheral vascular: No chest pain, no palpitations, no edema, no shortness of breath Gastrointestinal: No new onset incontinence, normal bowel movements reported Genitourinary: No new onset incontinence Musculoskeletal: Right low back pain, right hip pain, right lateral thigh numbness and tingling Psychiatric: Normal mood/affect Neurological: [Denies weakness in extremities], [denies balance issues] Objective:: Physical exam General: Alert and oriented x3, no acute distress, pleasant and cooperative, [on room air] Lungs: Respirations even and unlabored, symmetrical chest expansion Eyes: PERRL Musculoskeletal: Flexion and extension of bar spine somewhat guarded secondary to pain, deep tendon reflexes normal, strength in upper and lower extremities [5/5], [abnormal gait noted], positive Johanna's test, positive compression test, positive distraction test Neurological: Speech clear, mobile home technician equal, no gross sensory deficit Assessment:: Right sacroiliitis Plan:: Patient had patient has gotten great relief with the injections for about a week. She got up to 800% relief. She would like to proceed with a diagnostic injection to the right side once again. We will schedule her for right SI joint injection diagnostically to see if she is a correlate candidate. I did give her information regarding corner lock procedure. Dr. Stephania de leon did want to perform a right SI stabilization procedure in the past for her, however, she declined. She is very interested in the corner lock procedure. We will see her back in the clinic after injection to reassess her symptoms. She has been instructed to contact clinic if she has any concerns before next appointment. The patient and I specifically discussed risk factors for COVID19. These risks include, but are not limited to age greater than 60, heart or lung disease, diabetes, immunosuppression, and travel. We also discussed NSAIDs may worsen COVID19 infection or symptoms. Patient should not use NSAIDs to treat COVID19 signs or symptoms. Patient was also informed that any type of corticosteroid of any form (oral or injection) will decrease the patient's immune system response and may increase the likelihood of COVID19 infection [address] symptoms[address] Gastelum has reviewed this note and agrees with this plan of care. This note was dictated using voice recognition software and make contain errors or omissions. [facility] History I have r
== END ==
PROVIDERS: PCP Internal Medicine; Visit Provider Clinical Nurse Specialist Family Health
DX: M46.1 Sacroiliitis, not elsewhere classified (principal)
CPT/HCPCS: 99212

== ENCOUNTER 2020-04-19 09:25 | Day surgery (SDC) | payer MEDICARE, OTHER, SELFPAY ==
[2020-04-19 09:43] VITALS: BP 145/98; PULSE 71; RESP 18; TEMP 36.4; O2SAT 97; BMI 25.9
[2020-04-19 10:47] VITALS: BP 132/74; PULSE 85; RESP 18; O2SAT 98
[2020-04-19 10:48] VITALS: BP 138/78; PULSE 85; RESP 18; O2SAT 97
--- NOTE | 2020-04-19 10:57 | P.PCN_ITS ---
- Procedure Date: 04/19/20 Time: 10:57 Anesthesiologist:: Delon Gastelum MD Complications:: None Pre-procedure Diagnosis:: Sacroiliitis Post-procedure Diagnosis:: Same Indications for Procedure:: Patient is a pleasant 75-year-old white female who we are treating for right- sided sacroiliitis. She is done well with previous right SI joint injections. She is tender over right SI joint. She is positive Johanna's test on right side. Positive Lora test on the right side. She has she has benefited greatly from previous right SI joint injections under fluoroscopy. She has positive SI joint compression test on the right side. She has positive distraction test on the right side. She presents for repeat right SI joint injection under fluoroscopy. She was 80 to 90% better for several weeks after her last injection. Procedure Details:: Right SI joint injection under fluoroscopy Informed consent was obtained and the risks and benefits of the procedure was going to the patient. Patient was taken to the procedure room. Patient was placed prone on the procedure table. The right hip was prepped using ChloraPrep. The skin and subcutaneous tissues were anesthetized using lidocaine. I placed a 22-gauge spinal needle into the inferior aspect of the right SI joint. Needle placement was confirmed with dye. After this we injected 5 mL bupivacaine 0.25% and Depo-Medrol 40 mg into the right SI joint. The patient tolerated the procedure well with no complication. Plan and Disposition:: We will follow-up with her in 2 weeks. Will reevaluate symptoms at that time. I do believe she is a candidate for right SI joint stabilization with cornerloc. We will get her to talk to the patient that has had this procedure done. We will give her information on this procedure. If amenable we will seek approval and plan on scheduling a right sided SI joint stabilization. We will see her at her next visit to discuss.
[2020-04-19 11:16] VITALS: BP 148/77; PULSE 68; RESP 20; O2SAT 97
== END 2020-04-19 11:17 | disposition home or self-care (01) ==
LOC: SC.PAINP 09:26
PROVIDERS: PCP Internal Medicine; Visit Provider Anesthesiology
DX: M46.1 Sacroiliitis, not elsewhere classified (principal); I10 Essential (primary) hypertension; E78.5 Hyperlipidemia, unspecified; J44.9 Chronic obstructive pulmonary disease, unspecified; I25.10 Atherosclerotic heart disease of native coronary artery without angina pectoris; J45.909 Unspecified asthma, uncomplicated; K21.9 Gastro-esophageal reflux disease without esophagitis; F41.9 Anxiety disorder, unspecified; F32.9 Major depressive disorder, single episode, unspecified; Z87.39 Personal history of other diseases of the musculoskeletal system and connective tissue; Z88.8 Allergy status to other drugs, medicaments and biological substances; Z79.899 Other long term (current) drug therapy
CPT/HCPCS: 27096; G0260; J1040; Q9966

== ENCOUNTER → 2020-05-13 10:40 | Outpatient (POV) | payer MEDICARE, OTHER, SELFPAY ==
[2020-05-13 11:31] VITALS: BP 132/85; PULSE 74; RESP 18; TEMP 36.8; O2SAT 98; BMI 25.9
--- NOTE | 2020-05-13 12:04 | HMH.PAINSOAP ---
[facility] Pain Management SOAP Note Subjective:: Patient is a pleasant 80-year-old white female who we are treating for right-sided sacroiliitis. She is done well with her previous right SI joint injections however she has not gotten long-term relief with them. She has a positive Lora test Johanna's test SI joint compression test and distraction test on the right side. She recently had a repeat SI joint injection to which she got 80% relief for 2 weeks. Her pain is now returned she rates her pain a 3 out of 10. She is having difficulty with activities of daily living she is interested in pursuing a corner lock or SI joint stabilization procedure. ROS General: no recent weight change, no fever, no sleep disturbances Respiratory: no cough, no shortness of air, no recurring pulmonary infections Cardiovascular/Peripheral Vascular: No chest pain, No palpitations, no edema, no shortness of breath. Gastrointestinal: no new onset incontinence, normal bowel movements reported Genitourinary: no new onset incontinence Musculoskeletal: Right SI joint pain Psychiatric: normal mood/ affect, Neurological: [denies new onset weakness in extremities], [denies new onset balance issues] Objective:: Physical Exam General: Alert and oriented x3, no acute distress, pleasant and cooperative, [on room air] Lungs: Resps E/U, Symmetrical chest expansion, Eyes: PERRL Musculoskeletal: Flexion and extension of lumbar spine somewhat guarded secondary to pain, deep tendon reflexes normal, strength in upper and lower extremities [5/5], [abnormal gait noted] Neurological: speech clear, executive vice president of sales equal, no gross sensory deficits Assessment:: Chronic sacroiliitis Plan:: We will schedule the patient for right SI joint stabilization with a corner lock. I will follow-up with her after this reassess her symptoms at that time she has been instructed to call the office if she has any issues prior to her next appointment. She was also given education on the procedure. Dr. Gastelum has reviewed this note and agrees with this plan of care. This note was dictated using voice recognition software and may contain errors or omissions [facility] History I have reviewed the patient's past medical history: Yes Medical History: Reports:: Asthma, Cardiomyopathy, Coronary Artery Disease, Depression, Hyperlipidemia, Hypertension Denies:: Cancer, Diabetes Mellitus Type 1, Diabetes Mellitus Type 2, Internal Pacemaker, MRSA, Seizures *Have you ever received a pneumonia vaccine?: Yes *Have you received a flu vaccine this season?: Yes Other Medical History: Reports: Arthritis, Cataracts. Denies: Blood Transfusion Reaction Laterality Cases: Left: Arthroscopy Shoulder Other Surgeries: Yes: Appendectomy, Cardiac Catheterization, Coronary Stent, Hysterectomy-Partial, Tubal Ligation, Other (lumbar surgery). No: Pacemaker Amputation: No Fractures: Yes - *Social History Smoking Status: Never smoker Alcohol Intake: never Alcohol Intake Frequency:: other Substance Use Type: denies use *Occupational Status:: other Housing: house Household Members: other *Travel in the last 8 weeks: None - Psychiatric History Pschychiatric History:: Reports:: Depression Family Hx:: Unable to obtain CLINICAL MOLECULAR GENETICIST history: Spontaneous
== END ==
PROVIDERS: PCP Internal Medicine; Visit Provider Clinical Nurse Specialist Family Health
DX: M46.1 Sacroiliitis, not elsewhere classified (principal)
CPT/HCPCS: 99212; G0463

== ENCOUNTER 2020-05-24 14:25 | Emergency (ER) | payer MEDICARE, OTHER, SELFPAY ==
[2020-05-24 14:45] VITALS: BP 114/65; PULSE 71; RESP 20; TEMP 36.6; O2SAT 98; BMI 25.9
--- NOTE | 2020-05-24 14:53 | XR_ITS ---
PROCEDURE: XR CHEST 2V CLINICAL HISTORY: COUGH COMPARISON: CR XR CHEST 2V from 01/13/2019 DX XR CHEST 2V from 02/17/2019 CR XR CHEST AP from 03/20/[address] ANGIO CHEST from 03/20/2019 FINDINGS: The cardiomediastinal silhouette and pulmonary vascularity are within normal limits. Hyperinflation consistent with COPD. Hiatal hernia noted. Degenerative changes thoracic spine IMPRESSION: No acute findings. Dictated by: Austen Huang MD 05/24/2020 16:02 Austen Huang MD in [place] 05/24/2020 16:02
--- NOTE | 2020-05-24 15:25 | HMH.EDUTC ---
[facility] [place] Disposition Clinical Impression: RLL pneumonia Qualifiers: Pneumonia type: due to unspecified organism Qualified Code(s): J18.9 - Pneumonia, unspecified organism Disposition: Home, Self-Care Condition on Discharge: Good Instructions: DI for Pneumonia -- Adult Additional Instructions: Use nebs that you have at home. Return to ER if you feel worse. Follow up with Dr Dupree Prescriptions: predniSONE [Prednisone 20mg Tab] 20 mg PO BID 5 Days #10 tab Transmission Status: Pending to [facility] Azithromycin [Z-Cali 250mg Tab] 250 mg PO DIRECTED #6 tab Transmission Status: Pending to [facility] Referrals: Deshaun Dupree [Primary Care Provider] - Time of Disposition: 15:29 Medical Decision Making - Camilo Inquiry Pt receiving controlled substance: No Vital Signs: 05/24/20 14:45 Temperature 97.8 F Temperature Source Oral Pulse Rate [Right Brachial] 71 Respiratory Rate 20 Blood Pressure [Right Arm] 114/65 Blood Pressure Mean [Right Arm] 81 Blood Pressure Source [Right Arm] Automatic Cuff Blood Pressure Position [Right Arm] Sitting 02 Sat by Pulse Oximetry 98 Oxygen Delivery Method Room Air Orders (Tests/Meds): ORDERS Category Date Time Status Chest XR 2 view (NOT portable) [XR chest 2V] Stat Exams 05/24/20 14:53 Taken Covid-19 Nasal PCR Sendout P&C Routine Lab 05/24/20 14:50 Received - Radiology Data #1 Image(s): Chest Image Reviewed: Yes I reviewed the patient's radiology image Preliminary Findings: Abnormal (RLL infiltrate) [facility] [place] HPI - General Stated complaint: covid exposure Time Seen by Provider: 05/24/20 15:25 Mode of Arrival: Ambulatory Source of Information: Patient Limitations: No Limitations Description of Symptoms (Recalled from Triage Doc. by RN): PATIENT C/O DRY COUGH AND WEAKNESS X 3 DAYS. REPORTS SHE WAS RECENTLY EXPOSED TO COVID. STATES THAT HER SYMPTOMS BEGAN THE DAY AFTER SHE RECEIVED PART 1 OF HER COVID VACCINE ON WEDNESDAY HE Symptoms (Recalled from RN notes): No Resp Symptoms (Recalled from RN notes): Yes Skin Symptoms (Recalled from RN notes): No MS Symptoms (Recalled from RN notes): No Functional Status (Recalled from RN notes): wnl - History of Present Illness Provider Complaint: Patient had potential COVID19 exposure 1 week ago. She received the first dose of her COVID19 4 days ago. Started feeling poorly 3 days ago. No fever. Has productive cough, feels weak. No vomiting or diarrhea. Onset (ago): day(s) (3) Location: chest Relieving factors: none Exacerbating factors: none Associated symptoms: cough, malaise, weakness Treatments prior to arrival: other (Codeine cough syrup) - Related Data Home Medications Medication Instructions Recorded Confirmed aspirin 81 mg tablet,delayed 81 mg PO DAILY 03/21/18 04/19/20 release cholecalciferol (vitamin D3) 25 1,000 unit PO DAILY 09/20/18 04/19/20 mcg (1,000 unit) capsule fluticasone propionate 110 1 inh INHALATION DAILY 90 Days g 09/20/18 04/19/20 mcg/actuation HFA aerosol inhaler loratadine 10 mg tablet 10 mg PO DAILY 90 Days tab 09/20/18 04/19/20 montelukast 10 mg tablet 10 mg PO DAILY 90 Days tab 09/20/18 04/19/20 omega-3 fatty acids 1,000 mg 1,000 mg PO DAILY 09/20/18 04/19/20 capsule omeprazole 40 mg capsule,delayed 40 mg PO DAILY 90 Days #90 cap 09/20/18 04/19/20 release sertraline 100 mg tablet 100 mg PO DAILY 90 Days tab 09/20/18 04/19/20 vitamin B complex 1 tab PO DAILY 09/20/18 04/19/20 budesonide-formoterol HFA 80 2 puff INHALATION BID 09/29/18 04/19/20 mcg-4.5 mcg/actuation aerosol inhaler clonazepam 0.5 mg tablet 0.5 mg PO DAILY tab 01/19/19 04/19/20 Calcium Carbonate [Calcium] 1,000 mg PO DAILY 03/23/19 04/19/20 amlodipine 5 mg tablet 5 mg PO DAILY 06/13/19 04/19/20 ropinirole 0.25 mg tablet 0.25 mg PO HS 06/13/19 04/19/20 tizanidine 2 mg tablet 2 mg PO TIDP PRN 06/13/19 04/19/20 triamterene 37.5 1 tab PO DAILY 06/13/19 04/19/20 mg-hy
[2020-05-24 15:37] VITALS: BP 114/65; PULSE 71; RESP 20; TEMP 36.6; O2SAT 98
[2020-05-25 11:42] LABS: Covid-19 Nasal PCR Sendout P&C Negative
== END 2020-05-24 15:44 | disposition home or self-care (01) ==
PROVIDERS: Emergency Provider Physician Assistant; PCP Internal Medicine
DX: J18.9 Pneumonia, unspecified organism (principal); Z20.822 Contact with and (suspected) exposure to COVID-19; F33.1 Major depressive disorder, recurrent, moderate; I10 Essential (primary) hypertension; E78.5 Hyperlipidemia, unspecified; I25.10 Atherosclerotic heart disease of native coronary artery without angina pectoris; Z79.899 Other long term (current) drug therapy
CPT/HCPCS: 71046; 99202; G0463; U0004

== ENCOUNTER 2020-05-30 13:38 | Emergency (ER) | payer MEDICARE, OTHER, SELFPAY ==
[2020-05-30 13:39] VITALS: BP 140/72; PULSE 73; RESP 14; TEMP 36.4; O2SAT 96; BMI 25.9
[2020-05-30 13:44] VITALS: BMI 23.8
--- NOTE | 2020-05-30 13:44 | XR_ITS ---
PROCEDURE: XR CHEST 2V CLINICAL HISTORY: COUGH COMPARISON: DX XR CHEST 2V from 02/17/2019 CR XR CHEST AP from 03/20/[address] ANGIO CHEST from 03/20/2019 CR XR CHEST 2V from 05/24/2020 FINDINGS: The cardiomediastinal silhouette and pulmonary vascularity are within normal limits. There is a small hiatal hernia. Lungs are free of acute infiltrate. Chronic changes are present in the right lung base with vascular crowding. Degenerative changes thoracic spine. Prior kyphoplasty at T10 IMPRESSION: Hiatal hernia. No change with no acute finding. Dictated by: Austen Huang MD 05/30/2020 15:11 Austen Huang MD in [place] 05/30/2020 15:11
--- NOTE | 2020-05-30 14:01 | HMH.EDUTC ---
[facility] [place] Clinical Impression: COPD (chronic obstructive pulmonary disease) Pneumonia Qualifiers: Pneumonia type: due to unspecified organism Laterality: right Lung location: lower lobe of lung Qualified Code(s): J18.9 - Pneumonia, unspecified organism Disposition: Home, Self-Care Condition on Discharge: Good Instructions: Pneumonia-Adult, DI for Chronic Obstructive Pulmonary Disease Additional Instructions: Drink plenty of fluids. Take tylenol or ibuprofen for pain or fever. Take the medications as directed. Follow up with your regular doctor. GO TO THE ER FOR ANY WORSENING SYMPTOMS Follow up with Dr. Dupree tomorrow. Prescriptions: predniSONE [Deltasone 10mg tablet] 10 mg PO DAILY 9 Days #21 tab Transmission Status: Received by [facility] Cefdinir [Omnicef 300mg Capsule] 300 mg PO BID #20 cap Transmission Status: Received by [facility] Referrals: Deshaun Dupree [Primary Care Provider] - Time of Disposition: 15:23 Medical Decision Making - Medical Records Medical records reviewed: No: I reviewed the patient's medical records. - Camilo Inquiry Pt receiving controlled substance: No Vital Signs: 05/30/20 13:39 05/30/20 15:26 Temperature 97.6 F 97.6 F Temperature Source Oral Oral Pulse Rate 73 Pulse Rate [Right] 73 Respiratory Rate 14 14 Blood Pressure 140/72 Blood Pressure [Right Arm] 140/72 Blood Pressure Mean [Right Arm] 94 02 Sat by Pulse Oximetry 96 - Lab Data Lab Results 05/30/20 14:22: WBC 9.8, RBC 3.97 L, Hgb 11.5 L, Hct 35.4 L, MCV 89.1, MCH 28.9, MCHC 32.5, RDW 15.8, Plt Count 347, MPV 7.4, Neut % (Auto) 64.1, Lymph % (Auto) 26.1, [place] % (Auto) 8.0, Eos % (Auto) 1.5, Baso % (Auto) 0.3, Neut # (Auto) 6.3, Lymph # (Auto) 2.6, [place] # (Auto) 0.8, Eos # (Auto) 0.2, Baso # (Auto) 0.0 05/30/20 14:22: Sodium 133 L, Potassium 5.4 H, Chloride 102, Carbon Dioxide 27, Anion Gap 9.4, BUN 31 H, Creatinine 1.10 H, Estimated Creat Clear 39, Estimated GFR 48 L, Est GFR ( Amer) 58 L, Glucose 84, Calcium 9.7, Total Bilirubin 0.4, AST 42 H, ALT 30, Alkaline Phosphatase 87, Total Protein 6.9, Albumin 4.0, Globulin 2.9, Albumin/Globulin Ratio 1.4 Result diagrams: 05/30/20 14:22 05/30/20 14:22 Orders (Tests/Meds): ED MEDICATIONS Discontinued Medications Generic Name Dose Route Start Last Admin Trade Name Artemioq PRN Reason Stop Dose Admin Ceftriaxone Sodium 1 gm 05/30/20 14:52 05/30/20 14:57 Ceftriaxone 1gm Vial IM 05/30/20 14:53 1 gm ONCE ONE Administration Protocol Lidocaine HCl 0 ml 05/30/20 14:52 05/30/20 14:57 Lidocaine 1% 5ml Pf Vial IM 05/30/20 14:53 3.6 ml ONCE ONE Administration [facility] [place] HPI - General Stated complaint: weak,cough, feels bad all over Time Seen by Provider: 05/30/20 14:01 - History of Present Illness Provider Complaint: She states that she has began to feel bad and get more congested since yesterday. She was diagnosed with pneumonia last week. She says that she felt better while she was on the antibiotics and steroids, but now that she is off them her symptoms are coming back. She is requesting another round of antibiotics. - Related Data Home Medications Medication Instructions Recorded Confirmed aspirin 81 mg tablet,delayed 81 mg PO DAILY 03/21/18 04/19/20 release cholecalciferol (vitamin D3) 25 1,000 unit PO DAILY 09/20/18 04/19/20 mcg (1,000 unit) capsule fluticasone propionate 110 1 inh INHALATION DAILY 90 Days g 09/20/18 04/19/20 mcg/actuation HFA aerosol inhaler loratadine 10 mg tablet 10 mg PO DAILY 90 Days tab 09/20/18 04/19/20 montelukast 10 mg tablet 10 mg PO DAILY 90 Days tab 09/20/18 04/19/20 omega-3 fatty acids 1,000 mg 1,000 mg PO DAILY 09/20/18 04/19/20 capsule omeprazole 40 mg capsule,delayed 40 mg PO DAILY 90 Days #90 cap 09/20/18 04/19/20 release sertraline 100 mg tablet 100 mg PO DAILY 90 Days tab 09/20/18 04/19/20 vitamin B complex 1
[2020-05-30 14:35] LABS: Basophils % 0.3 % (0.1-2.0); Eosinophils # 0.2 K/mm3 (0.0-0.4); Eosinophils % 1.5 % (0.1-12.0); Hematocrit 35.4 % (37.0-47.0); Hemoglobin 11.5 g/dL (12.2-16.2); Lymphocytes # 2.6 K/mm3 (0.7-4.5); Lymphocytes % 26.1 % (10-50); Mean Corpuscular HGB Conc 32.5 g/dL (31.8-35.4); Mean Corpuscular Hemoglobin 28.9 pg (27.0-31.2); Mean Corpuscular Volume 89.1 fl (81-99); Mean Platelet Volume 7.4 fl (7.4-10.4); Monocytes # 0.8 K/mm3 (0.1-1.0); Neutrophils # 6.3 K/mm3 (1.8-7.8); Neutrophils % 64.1 % (37.0-80.0); Platelet Count 347 K/mm3 (142-424); Red Blood Count 3.97 M/mm3 (4.20-5.40); Red Cell Distribution Width 15.8 % (11.5-17.5); White Blood Count 9.8 K/mm3 (4.8-10.8)
[2020-05-30 14:37] LABS: Chloride 102 mmol/L (98-107)
[2020-05-30 14:38] LABS: Potassium 5.4 mmoL/L (3.5-5.1); Sodium 133 mmol/L (136-145)
[2020-05-30 14:40] LABS: Alanine Aminotransferase 30 U/L (12-78); Alkaline Phosphatase 87 U/L (38-126); Aspartate Amino Transferase 42 U/L (14-36); Bilirubin,Total 0.4 mg/dl (0.2-1.3); Blood Urea Nitrogen 31 mg/dl (7-17); Creatinine Clearance Estimated 39 mL/min (50-200); Estimated Glomerular Filt Rate 48 ml/min (>60); GFR (African American) 58 ML/MIN (>60)
[2020-05-30 14:41] LABS: Albumin/Globulin Ratio 1.4 (1.1-1.8); Anion Gap 9.4 mEq/L (5-15); Calcium 9.7 mg/dl (8.4-10.2); Carbon Dioxide 27 mmol/L (22.0-30.0); Globulin 2.9 g/dL (1.3-3.2); Glucose 84 mg/dl (74-100); Total Protein,Serum 6.9 g/dl (6.3-8.2)
[2020-05-30 15:26] VITALS: BP 140/72; PULSE 73; RESP 14; TEMP 36.4; O2SAT 96
== END 2020-05-30 15:31 | disposition home or self-care (01) ==
PROVIDERS: Emergency Provider Nurse Practitioner Family; PCP Internal Medicine
DX: J18.9 Pneumonia, unspecified organism (principal); J44.9 Chronic obstructive pulmonary disease, unspecified; F41.8 Other specified anxiety disorders; E78.5 Hyperlipidemia, unspecified; I10 Essential (primary) hypertension; I25.10 Atherosclerotic heart disease of native coronary artery without angina pectoris; Z79.899 Other long term (current) drug therapy
CPT/HCPCS: G0463; 71046; 80053; 85025; 96372; 99202

== ENCOUNTER 2020-06-01 08:56 | Emergency (ER) | payer MEDICARE, OTHER, SELFPAY ==
[2020-06-01 08:56] VITALS: BP 135/71; PULSE 89; RESP 16; TEMP 36.7; O2SAT 100; BMI 25.9
--- NOTE | 2020-06-01 09:07 | HMH.EDGENADL ---
ED Disposition Clinical Impression: Viral upper respiratory infection Disposition: Home, Self-Care Condition on Discharge: Good Instructions: DI for Viral Upper Respiratory Infection -- Adult Additional Instructions: You may stop taking the antibiotic and steroid. Follow-up with your primary care doctor next week. COVID-19 test results should be done later today and you will be called with the results. Referrals: Deshaun Dupree [Primary Care Provider] - - Critical Care Critical Care Time: No Attestation: On , the high probability of a clinically significant, sudden or life threatening deterioration of the following system(s) required my full and direct attention, intervention and personal management. The time I documented below is in addition to time spent performing reported procedures but includes the following listed in this critical care notation. Medical Decision Making - Medical Records Medical records reviewed: Yes: I reviewed the patient's medical records. MR Comment: Reviewed [facility] visits on 05/24/2020 and 05/30/2020. Reviewed chest x-ray reports from these visits. Reviewed lab results. On 05/24 she was diagnosed with pneumonia and treated with Zithromax and prednisone. She had a negative PCR for Covid on that date. On 05/30 she was diagnosed with pneumonia, treated with injection of Rocephin and prescriptions for cefdinir and prednisone. Final readings on both chest x-rays done on these visits was negative for pneumonia. The patient had dose 1 of Covid vaccine on 05/21/2020. - Camilo Inquiry Pt receiving controlled substance: No Vital Signs: 06/01/20 08:56 06/01/20 09:26 06/01/20 09:50 Temperature 98.0 F Temperature Source Oral Pulse Rate Pulse Rate [Left Radial] 89 73 65 Respiratory Rate 16 Blood Pressure Blood Pressure [Right Arm] 135/71 126/65 132/68 Blood Pressure Mean [Right Arm] 92 85 89 Blood Pressure Source Blood Pressure Source [Right Arm] Automatic Cuff Automatic Cuff Automatic Cuff Blood Pressure Position Blood Pressure Position [Right Arm] Sitting Sitting 02 Sat by Pulse Oximetry 100 99 99 Oxygen Delivery Method Room Air Room Air Room Air 06/01/20 10:00 06/01/20 10:45 06/01/20 11:15 Temperature 98.0 F Temperature Source Oral Pulse Rate 78 Pulse Rate [Left Radial] 65 62 Respiratory Rate 18 Blood Pressure 145/73 H Blood Pressure [Right Arm] 135/69 140/71 Blood Pressure Mean [Right Arm] 91 94 Blood Pressure Source Automatic Cuff Blood Pressure Source [Right Arm] Automatic Cuff Automatic Cuff Blood Pressure Position Sitting Blood Pressure Position [Right Arm] Sitting Sitting 02 Sat by Pulse Oximetry 98 98 Oxygen Delivery Method Room Air Room Air Room Air - Lab Data Lab results reviewed: Yes: I reviewed the patient's lab results. Lab Results 06/01/20 09:10: WBC 10.5, RBC 4.37, Hgb 12.3, Hct 38.7, MCV 88.7, MCH 28.1, MCHC 31.7 L, RDW 15.4, Plt Count 405, MPV 7.3 L, Neut % (Auto) 64.2, Lymph % (Auto) 28.2, [place] % (Auto) 6.4, Eos % (Auto) 0.8, Baso % (Auto) 0.4, Neut # (Auto) 6.7, Lymph # (Auto) 3.0, [place] # (Auto) 0.7, Eos # (Auto) 0.1, Baso # (Auto) 0.0 06/01/20 09:10: Sodium 135 L, Potassium 3.9 D, Chloride 101, Carbon Dioxide 27, Anion Gap 10.9, BUN 25 H, Creatinine 1.00, Estimated Creat Clear 46, Estimated GFR 53 L, Est GFR ( Amer) 65, Glucose 81, Calcium 9.7, Troponin I < 0.01 06/01/20 09:10: Lactate 1.9 06/01/20 09:10: SARS-CoV-2 IgG Ab (Rapid) Negative, SARS-CoV-2 IgM Ab (Rapid) Negative 06/01/20 09:35: Influenza Type A Ag Negative, Influenza Type B Ag Negative Result diagrams: 06/01/20 09:10 06/01/20 09:10 Orders (Tests/Meds): ORDERS Category Date Time Status Blood Culture Stat Micro 06/01/20 09:21 Received - Radiology Data #1 Image(s): Chest Image Reviewed: Yes I reviewed the patient's radiology results Hiatal hernia, NAD. - ECG Data Tracing #1 EKG interpreted by Ron Whitaker MD: Rhythm:
--- NOTE | 2020-06-01 09:19 | XR_ITS ---
PROCEDURE: XR CHEST PORTABLE CLINICAL HISTORY: cough/weakness COMPARISON: CR XR CHEST AP from 03/20/[address] ANGIO CHEST from 03/20/2019 CR XR CHEST 2V from 05/24/2020 CR XR CHEST 2V from 05/30/2020 FINDINGS: There is cardiomegaly without failure. Hiatal hernia is noted. The lungs are clear without infiltrates, suspicious nodules, or pleural effusions. No acute bony abnormalities. IMPRESSION: Cardiomegaly with hiatal hernia. No change no acute finding Dictated by: Austen Huang MD 06/01/2020 10:39 Austen Huang MD in [place] 06/01/2020 10:39
--- NOTE | 2020-06-01 09:20 | ECG_ITS ---
APPROVED REPORT Exam: Resting ECG HR:70 bpm ECG Measurements Heart Rate 70 AXES NC 160 P 38 QRSd 68 QRS 3 QT 388 T 54 QTc 419 Conclusion Normal sinus rhythm Late r wave progression - unchanged Abnormal ECG Electronically signed by : Jonathan Muhammad, 06/01/2020 19:35:44
[2020-06-01 09:26] VITALS: BP 126/65; PULSE 73; O2SAT 99
[2020-06-01 09:36] LABS: Basophils % 0.4 % (0.1-2.0); Eosinophils # 0.1 K/mm3 (0.0-0.4); Eosinophils % 0.8 % (0.1-12.0); Hematocrit 38.7 % (37.0-47.0); Hemoglobin 12.3 g/dL (12.2-16.2); Lymphocytes % 28.2 % (10-50); Mean Corpuscular HGB Conc 31.7 g/dL (31.8-35.4); Mean Corpuscular Hemoglobin 28.1 pg (27.0-31.2); Mean Corpuscular Volume 88.7 fl (81-99); Mean Platelet Volume 7.3 fl (7.4-10.4); Monocytes # 0.7 K/mm3 (0.1-1.0); Monocytes % 6.4 % (1.7-9.3); Neutrophils # 6.7 K/mm3 (1.8-7.8); Neutrophils % 64.2 % (37.0-80.0); Platelet Count 405 K/mm3 (142-424); Red Blood Count 4.37 M/mm3 (4.20-5.40); Red Cell Distribution Width 15.4 % (11.5-17.5); White Blood Count 10.5 K/mm3 (4.8-10.8)
[2020-06-01 09:37] LABS: Chloride 101 mmol/L (98-107); Potassium 3.9 mmoL/L (3.5-5.1); Sodium 135 mmol/L (136-145)
[2020-06-01 09:40] LABS: Anion Gap 10.9 mEq/L (5-15); Blood Urea Nitrogen 25 mg/dl (7-17); Calcium 9.7 mg/dl (8.4-10.2); Carbon Dioxide 27 mmol/L (22.0-30.0); Creatinine Clearance Estimated 46 mL/min (50-200); Estimated Glomerular Filt Rate 53 ml/min (>60); GFR (African American) 65 ML/MIN (>60); Glucose 81 mg/dl (74-100)
[2020-06-01 09:49] LABS: Lactic Acid 1.9 mmol/L (0.7-2.1)
[2020-06-01 09:50] VITALS: BP 132/68; PULSE 65; O2SAT 99
[2020-06-01 09:53] LABS: Troponin I < 0.01 ng/ml (0.00-0.034)
[2020-06-01 10:00] VITALS: BP 135/69; PULSE 65; O2SAT 98
[2020-06-01 10:03] LABS: Coronavirus 19 IgG Antibody Negative (Negative); Coronavirus 19 IgM Antibody Negative (Negative)
[2020-06-01 10:45] VITALS: BP 140/71; PULSE 62; O2SAT 98
[2020-06-01 11:15] VITALS: BP 145/73; PULSE 78; RESP 18; TEMP 36.7; O2SAT 97
== END 2020-06-01 11:16 | disposition home or self-care (01) ==
PROVIDERS: Emergency Provider Emergency Medicine; PCP Internal Medicine
DX: J18.9 Pneumonia, unspecified organism (principal); J44.9 Chronic obstructive pulmonary disease, unspecified; I25.10 Atherosclerotic heart disease of native coronary artery without angina pectoris; Z01.84 Encounter for antibody response examination; Z20.822 Contact with and (suspected) exposure to COVID-19; F33.1 Major depressive disorder, recurrent, moderate; I10 Essential (primary) hypertension; E78.5 Hyperlipidemia, unspecified; Z79.899 Other long term (current) drug therapy
CPT/HCPCS: 71045; 80048; 83605; 84484; 85025; 86328; 87040; 87275; 87276; 93005; 99284; U0003

== ENCOUNTER → 2020-06-17 12:23 | Outpatient (CLI) | payer MEDICARE, OTHER, SELFPAY ==
--- NOTE | 2020-06-17 12:56 | XR_ITS ---
PROCEDURE: XR CHEST 2V CLINICAL HISTORY: pneumonia Shortness of COMPARISON: CT CT ANGIO CHEST from 03/20/2019 CR XR CHEST 2V from 05/24/2020 CR XR CHEST 2V from 05/30/2020 CR XR CHEST PORTABLE from 06/01/2020 FINDINGS: There is mild cardiomegaly without failure. Hiatal hernia is noted. Chronic changes are present in the right lower lobe. No lobar consolidation or collapse is evident. Chronic changes are present in the lingula.. There are degenerative changes in the thoracic spine IMPRESSION: Cardiomegaly with hiatal hernia, no acute finding Dictated by: Austen Huang MD 06/17/2020 13:47 Austen Huang MD in [place] 06/17/2020 13:47
[2020-06-17 15:15] LABS: Basophils % 0.5 % (0.1-2.0); Eosinophils # 0.4 K/mm3 (0.0-0.4); Eosinophils % 5.4 % (0.1-12.0); Hematocrit 34.6 % (37.0-47.0); Hemoglobin 10.6 g/dL (12.2-16.2); Lymphocytes # 2.2 K/mm3 (0.7-4.5); Lymphocytes % 29.7 % (10-50); Mean Corpuscular HGB Conc 30.8 g/dL (31.8-35.4); Mean Corpuscular Hemoglobin 27.9 pg (27.0-31.2); Mean Corpuscular Volume 90.7 fl (81-99); Mean Platelet Volume 8.1 fl (7.4-10.4); Monocytes # 0.5 K/mm3 (0.1-1.0); Monocytes % 6.4 % (1.7-9.3); Neutrophils # 4.3 K/mm3 (1.8-7.8); Neutrophils % 57.9 % (37.0-80.0); Platelet Count 260 K/mm3 (142-424); Red Blood Count 3.81 M/mm3 (4.20-5.40); Red Cell Distribution Width 15.3 % (11.5-17.5); White Blood Count 7.5 K/mm3 (4.8-10.8)
[2020-06-17 15:20] LABS: D-Dimer 1.49 ug/mL (0.0-0.5)
[2020-07-13 21:55] LABS: D001-IgE D pteronyssinus <0.10; D002-IgE D farinae <0.10; E001-IgE Cat Dander <0.10; E005-IgE Dog Dander <0.10; G002-IgE Bermuda Grass <0.10; G006-IgE Timothy Grass <0.10; I006-IgE Cockroach, German <0.10; M001-IgE Penicillium chrysogen <0.10
[2020-07-13 21:56] LABS: M002-IgE Cladosporium herbarum <0.10; M003-IgE Aspergillus fumigatus <0.10; M006-IgE Alternaria alternata <0.10; T001-IgE Maple/Box Elder <0.10; T006-IgE Cedar, Mountain <0.10; T007-IgE Oak, White <0.10; T008-IgE Elm, American <0.10; T010-IgE Walnut <0.10; T011-IgE Maple Leaf Sycamore <0.10; T014-IgE Cottonwood <0.10; T015-IgE Ash, White <0.10; T022-IgE Pecan, Hickory <0.10; W001-IgE Ragweed, Short <0.10; W011-IgE Thistle, Russian <0.10; W014-IgE Pigweed, Common <0.10
[2020-07-13 21:57] LABS: E072-IgE Mouse Urine <0.10; T070-IgE White Mulberry <0.10; W016-IgE Rough Marshelder <0.10
== END ==
PROVIDERS: PCP Internal Medicine; Visit Provider Internal Medicine Pulmonary Disease
DX: J18.9 Pneumonia, unspecified organism (principal)
CPT/HCPCS: 36415; 71046; 82785; 85025; 85378; 86003

== ENCOUNTER → 2020-06-17 14:44 | Outpatient (CLI) | payer MEDICARE, OTHER, SELFPAY | PROVIDERS: Visit Provider Internal Medicine Pulmonary Disease | DX: R06.09 Other forms of dyspnea; J45.30 Mild persistent asthma, uncomplicated | CPT/HCPCS: 36415; 71046; 82785; 85025; 85378; 86003 ==

== ENCOUNTER → 2020-06-28 09:53 | Outpatient (CLI) | payer MEDICARE, OTHER, SELFPAY ==
--- NOTE | 2020-06-28 09:53 | CT_ITS ---
PROCEDURE: CT ANGIO CHEST CLINCIAL INDICATION: Hypoxia Shortness of air times 3-4 weeks, nonproductive cough, no complaints of chest pain COMPARISON: CT CT ANGIO CHEST from 03/20/2019 TECHNIQUE: IV Contrast: 70ML Isovue 370 Axial images obtained with sagittal and coronal reformats. All CT scans at the facility use one or more dose reduction, viz: automated exposure control, ma/kV adjustment per patient size (including targeted exams where dose is matched to indication, i.e. head), or iterative reconstruction technique. FINDINGS: There is left basilar atelectasis secondary to mass effect from a large hiatal hernia. Lungs are otherwise well expanded and clear. There are no pleural effusions. There is no suspicious thoracic adenopathy. The pulmonary vasculature is within normal limits. Thoracic aorta is unremarkable. Bilateral renal cystic structures are redemonstrated. Refer to renal protocol CT or ultrasound for further evaluation. There is diffuse osteopenia. There is redemonstration of sclerotic change of the proximal left 5th rib and the proximal right 9th rib. These are not significantly changed compared with 2019. There are no additional sclerotic lesions. There is multilevel costovertebral articular degenerative change. There is multilevel vertebral body ankylosis. IMPRESSION: Intrathoracic stomach causing atelectasis of the left lower lobe. Skeletal findings are unchanged. Dictated by: Corina Workman MD 06/28/2020 17:49 Corina Workman MD in [place] 06/28/2020 17:49
== END ==
PROVIDERS: PCP Internal Medicine; Visit Provider Internal Medicine Pulmonary Disease
DX: R79.89 Other specified abnormal findings of blood chemistry (principal)
CPT/HCPCS: 71275; Q9967

== ENCOUNTER → 2020-07-04 09:27 | Outpatient (CLI) | payer MEDICARE, OTHER, SELFPAY ==
--- NOTE | 2020-07-04 09:28 | CA_ITS ---
APPROVED REPORT EXAM: Comprehensive 2D, Doppler, and color-flow Echocardiogram Hog Cooler: Tammy Garrido RCS, RVS Ht: 5 ft 0 in Wt: 149lbs BSA: 1.65 BP: 145/92 mmHg Indications: SOA s/p viral infection 05/2020, CAD-stents, Asthma 2D Dimensions LVOT 1.96 cm (M/F) 1.5-2.5 LA Volume 69.60 mL LA Volume Index 41.20 mL/m2 (M/F) 16-34 M-Mode Dimensions RVDd 3.39 cm (0.9-2.6) LA Diam 4.38 cm (1.9-4.0) LVDd 4.28 cm (3.5-5.7) Ao Diam 3.14 cm (2.0-3.7) LVDs 3.07 cm (3.5-5.7) IVSd 0.89 cm (0.6-1.1) PWd 0.64 cm (0.6-1.1) EF (Teich) 55.00% EPSs 0.18 cm FS 28.30% EDV (Teich) 82.20 mL TAPSE 2.25 (<1.7) ESV (Teich) 37.00 mL LV Diastology E Decel Time 260.00 (160-240 msec) E/A Ratio 0.63 MED E' 5.70 (< 7 cm/sec) MED A' 11.30 cm/s E'/MED E' Ratio 12.95 (>14) LAT E' 6.70 (<10 cm/sec) LAT A' 12.60 cm/s E/LAT E' Ratio 11.01 (>14) Pulm Vein s 38.00 cm/sec Pulm Vein d 36.00 cm/sec Ar-A Duration 140.00 msec Aortic Valve LVOT Max 87.00 (70-110 cm/s) LVOT VTI 21.73 cm AO Peak GR. 4.60 mmHg Mitral Valve MV E Max Corona. 74.00 (40-130 cm/s) MV A Velocity 118.00 (40-130 cm/s) E/A Ratio 0.63 MV Decel. Time 260.00 (160-240 ms) MV PHT 76.00 ms Pulmonary Valve PV Peak Velocity 71.00 (50-150 cm/s) IL End VMAX 186.00 cm/s Tricuspid Valve TR P. Velocity 229.00 cm/s RAP Estimate 10.00 mmHg RVSP 31.00 mmHg Left Ventricle Left atrium is mildly enlarged, left ventricle is normal size, left ventricle wall thickness is upper limit of the normal, there is preserved left ventricular systolic function, visually estimated ejection fraction 55% with no regional wall motion abnormality, grade 1 diastolic dysfunction seen without tissue Doppler evidence of raise left atrial pressure. Right Ventricle Right atrium and right ventricle are relatively normal size and function. Aortic Valve Aortic valve is minimally thickened and fibrosed, there is no aortic stenosis or aortic insufficiency. Mitral Valve Mitral valve is grossly normal, there is mild mitral regurgitation. Tricuspid Valve Tricuspid valve grossly normal, there is mild tricuspid regurgitation, calculated right ventricular systolic pressure is 30 mmHg. Pulmonic Valve Pulmonic valve is poorly visualized. There is mild pulmonic insufficiency. Great Vessels Aortic root is normal size. Pericardium No significant pericardial effusion noted. Conclusion 1. Mildly enlarged left atrium, normal left ventricular size, mild concentric left ventricular hypertrophy, visually estimated ejection fraction 55% with no regional wall motion abnormality, grade 1 diastolic dysfunction seen without tissue Doppler evidence of raise left atrial pressure. 2. Mild mitral and tricuspid regurgitation, calculated right ventricular systolic pressure 30 mmHg. 3. No significant pericardial effusion noted. Electronically signed by : Anton Braga, 07/04/2020 14:43:05
--- NOTE | 2020-07-04 11:00 | PC.NURSE ---
PFT and 6 Minute walk completed on Pt with no complaints. Albuterol 0.083% given to Pt via HHN per written protocol, Pt tolerated tx well.
== END ==
PROVIDERS: PCP Internal Medicine; Visit Provider Internal Medicine Pulmonary Disease
DX: R06.00 Dyspnea, unspecified
CPT/HCPCS: 93306; 94060; 94618; 94726; 94729

== ENCOUNTER → 2020-09-04 10:20 | Outpatient (CLI) | payer MEDICARE, OTHER, SELFPAY ==
[2020-09-04 13:55] LABS: Coronavirus 19 IgG Antibody Positive (Negative); Coronavirus 19 IgM Antibody Negative (Negative)
== END ==
PROVIDERS: Visit Provider Internal Medicine Gastroenterology
DX: Z01.812 Encounter for preprocedural laboratory examination (principal); Z20.822 Contact with and (suspected) exposure to COVID-19; Z13.810 Encounter for screening for upper gastrointestinal disorder
CPT/HCPCS: 36415; 86328

== ENCOUNTER 2020-09-06 09:34 | Day surgery (SDC) | payer MEDICARE, OTHER, SELFPAY ==
[2020-09-03 17:07] VITALS: BMI 27.1
[2020-09-06 10:14] VITALS: BP 125/66; PULSE 60; RESP 17; TEMP 36.2; O2SAT 95
[2020-09-06 11:16] VITALS: O2SAT 98
--- NOTE | 2020-09-06 11:29 | P.PN_ITS ---
[facility] Anesthesia Checklist - Structural Data Admitted From: Home Planned Operative Procedure/s: egd Consent for Planned Operative Procedure(s) Verified: Yes - Additional verifications Anesthesia Reactions: No Hx Blood Transfusions: No Blood Transfusion Reaction: No - Airway Assessment C-Spine Mobility Assessed: Yes TMJ Mobility Assessed: Yes Dentition: Good Dentition - Neurological Assessment Level of Consciousness: Awake, Alert, Appropriate - Anesthesia Plan Anesthesia Risk discussed: Yes Anesthesia Plan: Verified ASA Class: II Anesthesia Type: MAC [facility] History I have reviewed the patient's past medical history: Yes Medical History: Reports:: Asthma, Cardiomyopathy, Coronary Artery Disease, Depression, Hyperlipidemia, Hypertension Denies:: Cancer, Diabetes Mellitus Type 1, Diabetes Mellitus Type 2, Internal Pacemaker, MRSA, Seizures *Have you ever received a pneumonia vaccine?: Yes *Have you received a flu vaccine this season?: No Other Medical History: Reports: Arthritis, Cataracts. Denies: Blood Transfusion Reaction Anesthesia experience/problems:: none Laterality Cases: Left: Arthroscopy Shoulder Other Surgeries: Yes: Appendectomy, Cardiac Catheterization, Coronary Stent, Hysterectomy-Partial, Tubal Ligation, Other (lumbar surgery). No: Pacemaker Amputation: No Fractures: Yes (vertibrae x2) - *Social History Smoking Status: Never smoker Alcohol Intake: never Alcohol Intake Frequency:: other Substance Use Type: denies use *Occupational Status:: retired Housing: house Household Members: other *Travel in the last 8 weeks: None - Psychiatric History Pschychiatric History:: Reports:: Depression Family Hx:: Unable to obtain FILTER TANK TENDER history: Spontaneous
--- NOTE | 2020-09-06 11:36 | P.PCN_ITS ---
[facility] Procedure Note Procedure Note:: Upper Endoscopy Procedure Report: Esophagogastroduodenoscopy with cold biopsies and TTS balloon dilation Endoscopost: Aaron Melendez II, MD Referring Physician: Phil Leggett M.D. Date of Procedure: September 06, 2020 Equipment: Olympus GIF 190 standard upper endoscope Sedation: MAC sedation Indications: Mrs. Andino is a 80-year-old female who is here due to an abnormal CAT scan of the chest and abdomen. Her CAT scan of the chest from June 28, 2020 did show a large hiatal hernia (intrathoracic stomach) causing some atelectasis of the left lower lobe. The patient does have some postprandial coughing and reports shortness of breath. She does get some bloating but reports no belching or heartburn. She reports regular bowel function. She has some early satiety. She reports no globus sensation. She did have an EGD with me in June 2016 that showed a moderate sized 4 to 5 cm hiatal hernia. Procedure: Prior to the procedure, a history and physical exam was performed, and patient's medications and allergies were reviewed. The risks, benefits and alternatives of the sedation and procedure were discussed with the patient. All questions were answered and informed consent was obtained. The patient was brought to the procedure room. Patient identification and proposed procedure were verified by the physician and the nurse. The patient was placed in a left lateral decubitus position and the scope was passed under direct vision. Throughout the procedure, the patient's blood pressure, pulse, and oxygen saturations were monitored continuously. The upper GI endoscopy was accomplished without difficulty. The patient tolerated the procedure well. Findings: The scope was passed directly into the upper esophagus and advanced to the third portion of the duodenum. The post bulbar duodenum and duodenal bulb were normal with normal mucosa and conniventes. The scope was withdrawn through a normal duodenal bulb and pylorus into the stomach. There was moderate bile reflux with linear reactive gastropathy. Upon retroflexion there was a large hiatal hernia (8 to 9 cm) with linear Fernando's erosions and bile within the hernia. Cold biopsies were taken from the lesser curvature and antrum. The scope was then withdrawn into the esophagus. There was no evidence of reflux esophagitis or Espinoza's. There were strong tertiary contractions and some presbyesophagus. The entire esophagus was dilated to 60 Vincentian/20 mm with a TTS hydrostatic balloon. The remainder of the esophageal mucosa was normal. Impression: 1. Large hiatal hernia (8 to 9 cm) with linear Fernando's erosions 2. Bile reflux with mild linear reactive gastropathy 3. Presbyesophagus Plan: Based upon the size of the hiatal hernia, I would consider hiatal hernia repair. I do feel the patient has some functional reflux but I also feel that this is structurally impinging on the left lobe as demonstrated by CAT scan. The linear Fernando's erosions often lead to chronic iron deficiency. We will discuss this and I would favor minimally invasive repair (robotic or laparoscopic).
[2020-09-06 11:40] VITALS: BP 97/51; PULSE 64; RESP 18; TEMP 36.2; O2SAT 94
[2020-09-06 11:50] VITALS: BP 118/57; PULSE 63; RESP 18; O2SAT 92
[2020-09-06 12:00] VITALS: BP 122/80; PULSE 57; RESP 18; O2SAT 97
[2020-09-06 12:50] VITALS: BP 126/46; PULSE 62; RESP 18; O2SAT 97
== END 2020-09-06 13:00 | disposition home or self-care (01) ==
LOC: OUTP 09:34
PROVIDERS: PCP Internal Medicine; Visit Provider Internal Medicine Gastroenterology
PROC: 0DJ08ZZ Inspection of Upper Intestinal Tract, Via Natural or Artificial Opening Endoscopic (ICD-10-PCS; CPT 43235; principal; 2020-09-06 10:30)
DX: K21.9 Gastro-esophageal reflux disease without esophagitis (principal); K31.9 Disease of stomach and duodenum, unspecified; K22.8 Other specified diseases of esophagus; K44.9 Diaphragmatic hernia without obstruction or gangrene; K25.9 Gastric ulcer, unspecified as acute or chronic, without hemorrhage or perforation; I10 Essential (primary) hypertension; E78.5 Hyperlipidemia, unspecified; I25.10 Atherosclerotic heart disease of native coronary artery without angina pectoris; F41.9 Anxiety disorder, unspecified; F32.9 Major depressive disorder, single episode, unspecified; J45.909 Unspecified asthma, uncomplicated; I42.9 Cardiomyopathy, unspecified
CPT/HCPCS: 43239; 43249; 88305; C1726

== ENCOUNTER → 2020-10-15 07:50 | Outpatient (CLI) | payer MEDICARE, OTHER, SELFPAY ==
--- NOTE | 2020-10-15 07:50 | CT_ITS ---
PROCEDURE: CT CHEST WO CON CLINICAL INDICATION: ILD -Need HRCT Interstitial lung disease COMPARISON: CT CT ANGIO CHEST from 06/28/2020 TECHNIQUE: Axial images obtained with sagittal and coronal reformats. All CT scans at the facility use one or more dose reduction, viz: automated exposure control, ma/kV adjustment per patient size (including targeted exams where dose is matched to indication, i.e. head), or iterative reconstruction technique. Regular and high-resolution images are obtained on inspiration, expiration, and prone without contrast. FINDINGS: HEART AND MEDIASTINAL STRUCTURES: There are extensive coronary artery calcifications. There is a large hiatal hernia with 2/3 of the stomach within the hernia. There is mild prominence of the ascending aorta at 3.8 cm. No mediastinal or hilar mass or adenopathy. LUNGS AND PLEURAL SPACES: There are few areas scarring. There are mild atelectatic changes in the left lower lobe from the large hiatal hernia. No bronchiectasis. No significant air trapping. No significant interlobular septal thickening apparent. There is some mild hyperexpansion. BONY STRUCTURES: The there are degenerative changes in the thoracic spine. Degenerative changes at the costal sternal junction on the left at the 1st rib sternal junction. Mild sclerosis noted of the proximal aspect of the left 5th rib once again noted unchanged multi vertebral body ankylosis unchanged UPPER ABDOMEN: Unremarkable. ADDITIONAL FINDINGS: No other significant abnormalities. IMPRESSION: Overall stable CT appearance of the chest. High-resolution is are obtained on today's study demonstrated a few areas of pleural and parenchymal scarring and minimal atelectatic or fibrotic changes in the left lung base adjacent to the hiatal hernia. No convincing evidence of interstitial lung disease. The atelectatic changes in the lung bases have shown improvement from the previous exam Dictated by: Austen Huang MD 10/15/2020 12:57 Austen Huang MD in [place] 10/15/2020 12:57
== END ==
PROVIDERS: PCP Internal Medicine; Visit Provider Internal Medicine Pulmonary Disease
DX: J98.4 Other disorders of lung (principal)
CPT/HCPCS: 71250

== ENCOUNTER → 2020-12-30 13:23 | Outpatient (POV) | payer MEDICARE, OTHER, SELFPAY | PROVIDERS: Visit Provider Nurse Practitioner Family | DX: Z00.00 Encounter for general adult medical examination without abnormal findings (principal) ==

== ENCOUNTER → 2021-01-03 09:02 | Outpatient (CLI) | payer MEDICARE, OTHER, SELFPAY ==
--- NOTE | 2021-01-03 09:09 | XR_ITS ---
PROCEDURE: XR HAND RT MIN 3V CLINICAL INDICATION: Rt 3rd digit pain COMPARISON: CR XR HAND LT MIN 3V from 03/20/2019 CR XR HAND LT MIN 3V from 04/20/2019 CR XR HAND LT MIN 3V from 05/08/2019 FINDINGS: Metallic ring artifact noted obscuring the midshaft of the proximal phalanx of the 4th digit. Patient was unable to remove her ring. No fracture or dislocation. There are mild osteoarthritic changes at the 1st metacarpal-carpal joint, the 1st and 3rd metacarpophalangeal joints, 1st PIP joint, the 2nd DIP joint, the 3rd DIP joint and the 5th DIP joint. No erosive changes evident. No lytic or blastic change. IMPRESSION: Osteoarthritic changes Dictated by: Austen Huang MD 01/03/2021 11:06 Austen Huang MD in [facility] 01/03/2021 11:06
== END ==
PROVIDERS: PCP Internal Medicine; Visit Provider Orthopaedic Surgery
DX: M79.641 Pain in right hand (principal)
CPT/HCPCS: 73130

== ENCOUNTER → 2021-01-14 11:15 | Outpatient (POV) | payer MEDICARE, OTHER, SELFPAY | PROVIDERS: Visit Provider Dermatology | DX: Z00.00 Encounter for general adult medical examination without abnormal findings (principal) ==

== ENCOUNTER → 2021-01-20 08:46 | Outpatient (POV) | payer MEDICARE, OTHER, SELFPAY ==
[2021-01-20 09:05] VITALS: BP 137/69; PULSE 75; RESP 18; O2SAT 97; BMI 27.1
--- NOTE | 2021-01-20 09:30 | XR_ITS ---
PROCEDURE: XR HIP RT 2-3V W/PELVIS CLINICAL INDICATION: RT HIP/BACK PAIN COMPARISON: CR XR PELVIS 1-2V from 03/20/2019 FINDINGS: There are minimal osteoarthritic changes involving both hips. No acute fracture or dislocation. No lytic or blastic change. Prior kyphoplasty at L3. IMPRESSION: Mild osteoarthritis of the hips Dictated by: Austen Huang MD 01/20/2021 09:54 Austen Huang MD in [facility] 01/20/2021 09:54
--- NOTE | 2021-01-20 10:00 | HMH.PAINSOAP ---
[facility] Pain Management SOAP Note Subjective:: Patient is a pleasant 80-year-old white female who presents today for follow-up. The patient was seen on 05/13/2020 in the clinic for follow-up after SI injection on the right side. She has had multiple right SI joint injections. Patient says that she had a fall approximately 4 years ago, and since then, has continued to have severe right hip pain. She says that she did fall on concrete. She also suffered from a vertebral fracture at that time. Dr. Stephania de leon did do a repair of the area. Following the repair of the vertebral fracture, she developed another fracture without trauma. She says that again, Dr. Stephania de leon did treat the vertebrae with kyphoplasty. Patient is having worse pain to her right hip and right low back as well as pain into her right lateral thigh area stopping at the knee. She rates her pain a 3 out of 10 with sitting. The pain worsens when she is standing and walking. Injective therapy has given her 70 to 80% relief for only a short period. She has tried physical therapy for more than 6 weeks and is continue with home stretching. She does not get any long-term relief with injective therapy. She is concerned with continuing with corticosteroids. Review of Systems General: No recent weight changes, no fever, no sleep disturbances Respiratory: No cough, no shortness of air, no recurring pulmonary infections Cardiovascular/peripheral vascular: No chest pain, no palpitations, no edema, no shortness of breath Gastrointestinal: No new onset incontinence, normal bowel movements reported Genitourinary: No new onset incontinence Musculoskeletal: Low back pain with radiation into right buttock, right hip, right leg stopping at knee Psychiatric: [Normal mood/affect] Neurological: [Denies weakness in extremities], [denies balance issues] Objective:: Physical exam General: Alert and oriented x3, no acute distress, pleasant and cooperative, [on room air] Lungs: Respirations even and unlabored, symmetrical chest expansion Eyes: PERRL Musculoskeletal: Flexion and extension of lumbar [spine] somewhat guarded secondary to pain, strength in upper and lower extremities [5/5], [antalgic gait noted], positive Johanna's test, positive distraction test, positive compression test Neurological: Speech clear, [senior planning analyst equal], no gross sensory deficit Assessment:: Sacroiliitis right, chronic low back pain Plan:: Patient and I had a long discussion concerning corner lock procedure. She would like to proceed. She has tried injective therapy and has gotten short-term relief with the injections up to 70 to 80%. Unfortunately, her pain does return. She has tried home stretching along with anti-inflammatories. She has not gotten any relief. She has also undergone physical therapy in the past. We will send the patient for x-ray of her pelvis and right SI joint. We will schedule her for right SI joint corner lock procedure. She is not on any anticoagulation therapy. We will follow up with her afterwards for reevaluation of symptoms. She has been advised if he does have concerns or questions she can contact the clinic and I can discuss any questions she may have. Patient did have for motor no booster injection this previous week. She does understand she will need to wait at least 2 weeks following this injection. Risks and benefits of the procedure have been explained to the patient. Patient would like to proceed with the procedure. Patient has been instructed to contact the clinic with any concerns before the next appointment. Dr. Gastelum has reviewed this note and agrees with this plan of care. This note was dictated using voice recognition software and make contain errors or omissions. Some [facility] History I have reviewed the patient's past medical history: Yes Medical History: Reports:: Asthma, Cardiomyopathy, Coronary Artery Disease, Depression, Hyperlipidemia, Hypertension Denies:: [place]
== END ==
PROVIDERS: Visit Provider Clinical Nurse Specialist Family Health
DX: M46.1 Sacroiliitis, not elsewhere classified (principal); M54.5 Low back pain; G89.29 Other chronic pain
CPT/HCPCS: 73502; 99212; G0463

== ENCOUNTER → 2021-01-27 15:06 | Outpatient (CLI) | payer MEDICARE, OTHER, SELFPAY ==
[2021-01-27 15:31] LABS: Basophils # 0.1 K/mm3 (0-0.2); Basophils % 0.8 % (0.1-2.0); Eosinophils # 0.2 K/mm3 (0.0-0.4); Eosinophils % 3.1 % (0.1-12.0); Hematocrit 29.2 % (37.0-47.0); Hemoglobin 8.6 g/dL (12.2-16.2); Lymphocytes # 1.8 K/mm3 (0.7-4.5); Lymphocytes % 24.5 % (10-50); Mean Corpuscular HGB Conc 29.4 g/dL (31.8-35.4); Mean Corpuscular Hemoglobin 22.6 pg (27.0-31.2); Monocytes # 0.3 K/mm3 (0.1-1.0); Monocytes % 4.2 % (1.7-9.3); Neutrophils % 67.4 % (37.0-80.0); Platelet Count 360 K/mm3 (142-424); Red Blood Count 3.79 M/mm3 (4.20-5.40); White Blood Count 7.4 K/mm3 (4.8-10.8)
[2021-01-27 16:06] LABS: Chloride 103 mmol/L (98-107); Potassium 4.7 mmoL/L (3.5-5.1); Sodium 135 mmol/L (136-145)
[2021-01-27 16:09] LABS: Anion Gap 15.7 mEq/L (5-15); Blood Urea Nitrogen 21 mg/dl (7-17); Carbon Dioxide 21 mmol/L (22.0-30.0); Estimated Glomerular Filt Rate 53 ml/min (>60); GFR (African American) 65 ML/MIN (>60)
[2021-01-27 16:10] LABS: Calcium 9.5 mg/dl (8.4-10.2); Glucose 105 mg/dl (74-100)
== END ==
PROVIDERS: Visit Provider Anesthesiology
DX: Z01.812 Encounter for preprocedural laboratory examination (principal); Z20.822 Contact with and (suspected) exposure to COVID-19; M53.3 Sacrococcygeal disorders, not elsewhere classified
CPT/HCPCS: 36415; 80048; 85025; C9803; U0003; U0005

== ENCOUNTER 2021-01-29 06:53 | Day surgery (SDC) | payer MEDICARE, OTHER, SELFPAY ==
[2021-01-27 14:42] VITALS: BMI 27.1
[2021-01-29] VITALS (10 sets, daily range): BP systolic 122–149; BP diastolic 37–78; PULSE 69–85; RESP 16–18; TEMP 36.1–36.6; O2SAT 88–98
--- NOTE | 2021-01-29 10:34 | HMH.OPNOTE ---
Date of procedure: 01/29/21 Pre-op Diagnosis:: Sacroiliitis Post-op Diagnosis:: Sacroiliitis Procedure performed:: Same Surgeon:: Delon Gastelum MD FEED RESEARCH AIDE:: Other Anesthesia: GETA Estimated blood loss (mL): 25 Clinical Note:: Patient is a pleasant 80-year-old white female who we are treating for right-sided hip pain. She is tender over the right SI joint. She does have a positive Johanna's test on the right side. She is positive Lora test on the right side. She has a positive SI joint compression test on the right side. She has a positive distraction test on the right side. She does get benefit from SI joint injections for short period of time. She is 80% better after these injections. Since she is not getting long-lasting relief and has chronic sacroiliitis. We will plan on right SI joint stabilization today. Operative findings:: None Operative note:: Informed consent was obtained and the risk and benefits of the procedure was explained to the patient. Patient was taken to the operating room placed prone on the procedure table. Patient was prepped and draped in sterile fashion. A lateral view of the sacrum with C-arm was taken to make sure it was out of anteversion. We then did an oblique view of the right sacroiliac joint. We lined up the anterior and posterior sides of the joint to achieve a [place] . A line was drawn on the skin with the SI joint. The superior and inferior aspect of the joint were anesthetized using lidocaine. The superior and inferior aspect of the joint were marked off. 1 cm medial and 1 cm superiorly into the upper quadrant and 1 cm medial and 1 cm distal a 1 1/2 cm longitudinal incisions were made through the skin and subcutaneous tissues. Guidepins were then placed superior and inferior at a 90 degree angle to each other under C-arm guidance through the incision was made into the superior third and inferior third of the SI joint. Lateral C-arm view was then taken to check the depth of the pins into the SI joint. On the lateral view the joint finder was placed over the guidepin into the appropriate position. The working cannula retractor was then placed over the joint finder into the SI joint into the appropriate position and depth. The joint finder and guidepin were removed. The SI joint was drilled to remove cartilage and to get into the subchondral bone of the sacrum and ilium. The broach was then used to prepare a triangular groove into both the sacrum and ilium for insertion of stabilization grafts. A collagen spine was then placed into the prepared space and the stabilization graft was placed. This was done both superiorly inferiorly into the SI joint. The cannulated retractor was removed. The incisions were then closed with 2-0 Vicryl followed by lucie and 4-0 nylon. Dressings were placed and the patient was taken recovery in stable condition. Patient tolerated the procedure well with no complications. Patient was given Bactrim DS 1 tablet twice a day for 5 days as postop antibiotics. She was also given [place] 5 mg 1 tablet every 4-6 hours as needed pain we will give her 10 tablets for postoperative pain. Camilo and drug screen are all appropriate. Condition: stable Disposition: PACU Complications:: None
--- NOTE | 2021-01-29 11:09 | P.PN_ITS ---
[facility] Anesthesia Checklist - Patient Identification Patient Identification: Arm Band, Verbal (Name & ) - Structural Data Admitted From: Home Planned Operative Procedure/s: Right SI Joint Fusion Consent for Planned Operative Procedure(s) Verified: Yes Verified Documents: Surgical Consent - NPO Status Verified Time NPO: 00:00 - Additional verifications Anesthesia Reactions: No Hx Blood Transfusions: No Blood Transfusion Reaction: No - Cardiovascular Assessment Heart Sounds: S1 & S2 Pulse Rhythm: Regular - Airway Assessment C-Spine Mobility Assessed: Yes (Limited Flexion) TMJ Mobility Assessed: Yes (Small mouth opening) Dentition: Good Dentition - Neurological Assessment Level of Consciousness: Awake, Alert, Appropriate - Anesthesia Plan Anesthesia Risk discussed: Yes ASA Class: III Anesthesia Type: General [facility] History Medical History: Reports:: Asthma, Cardiomyopathy, Coronary Artery Disease, Depression, Hyperlipidemia, Hypertension Denies:: Cancer, Diabetes Mellitus Type 1, Diabetes Mellitus Type 2, Internal Pacemaker, MRSA, Seizures *Have you ever received a pneumonia vaccine?: Yes *Have you received a flu vaccine this season?: Yes (2019) Other Medical History: Reports: Arthritis, Cataracts. Denies: Blood Transfusion Reaction Anesthesia experience/problems:: no issues Laterality Cases: Left: Arthroscopy Shoulder Other Surgeries: Yes: Appendectomy, Cardiac Catheterization, Colonoscopy, Coronary Stent, Hysterectomy-Partial, Tubal Ligation, Other. 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
--- NOTE | 2021-01-29 11:45 | HMH.ANESI ---
[facility] Anesthesia Record Part I Intake, IV Amount: 900 Estimated blood loss (mL): 5 Urine output (mL): 0 Blood Products used (#): none Blood Pressure: 122/62 SaO2: 94 Pulse Rate: 80 Respiratory Rate: 16 Temperature: 97.0 F Patient is:: Drowsy
--- NOTE | 2021-01-29 16:12 | SUR.PHASEI ---
1200-pt c/o urge to void. Offered bed banegas but refused.
== END 2021-01-29 13:04 | disposition home or self-care (01) ==
LOC: OR 06:56
PROVIDERS: PCP Internal Medicine; Visit Provider Anesthesiology
DX: M46.1 Sacroiliitis, not elsewhere classified (principal); E78.5 Hyperlipidemia, unspecified; I10 Essential (primary) hypertension; J44.9 Chronic obstructive pulmonary disease, unspecified; Z95.5 Presence of coronary angioplasty implant and graft; I25.10 Atherosclerotic heart disease of native coronary artery without angina pectoris; Z88.8 Allergy status to other drugs, medicaments and biological substances; Z79.82 Long term (current) use of aspirin; Z79.899 Other long term (current) drug therapy
CPT/HCPCS: 27279; 96374; C1713; J2405; J3370

== ENCOUNTER → 2021-02-13 15:19 | Outpatient (POV) | payer MEDICARE, OTHER, SELFPAY ==
[2021-02-13 15:34] VITALS: BP 138/63; PULSE 76; RESP 18; O2SAT 98; BMI 27.1
--- NOTE | 2021-02-17 08:05 | HMH.PAINSOAP ---
[facility] Pain Management SOAP Note Subjective:: Patient is an 81-year-old white female who presents today for follow-up after an SI stabilization procedure. Patient did undergo right corner lock procedure on 01/29/2021 on the right side. Patient says that she is getting excellent relief to her right SI joint. She does have soreness and tenderness around the incision site, however, she says she is feeling much better with ambulation. The patient is now beginning to have pain on the left side much like the pain she had on the right side prior to the procedure. She says that she is having difficulty standing and walking on the left side. She reports the pain to be in the left low back area, left buttock left hip. The pain is a 2 out of 10 to her right SI joint and a 5 or 6 out of 10 to the left SI joint at this time. She is performing home stretching and ambulating. Review of Systems General: No recent weight changes, no fever, no sleep disturbances Respiratory: No cough, no shortness of air, no recurring pulmonary infections Cardiovascular/peripheral vascular: No chest pain, no palpitations, no edema, no shortness of breath Gastrointestinal: No new onset incontinence, normal bowel movements reported Genitourinary: No new onset incontinence Musculoskeletal: Left low back pain worse with standing and walking, radiating into left buttock and hip Psychiatric: [Normal mood/affect] Neurological: [Denies weakness in extremities], [denies balance issues] Objective:: Physical exam General: Alert and oriented x3, no acute distress, pleasant and cooperative, [on room air] Lungs: Respirations even and unlabored, symmetrical chest expansion Eyes: PERRL Musculoskeletal: Flexion and extension of lumbar [spine] somewhat guarded secondary to pain, [antalgic gait noted], positive Johanna's test, positive compression test, positive distraction test, positive Ana's test Neurological: Speech clear, no gross sensory deficit Assessment:: Left sacroiliitis Plan:: Patient is doing well post procedure. We will plan to follow-up with her in 2 weeks for suture removal. She is beginning to have pain to the left SI joint. She understands we will not be able to perform any type of surgical intervention to this area until she is fully healed from the right SI joint. We will see the patient back in 2 weeks. Patient's incision is well approximated, no redness, no drainage, no edema to site. Patient has been instructed to contact the clinic with any concerns before the next appointment. Dr. Gastelum has reviewed this note and agrees with this plan of care. This note was dictated using voice recognition software and make contain errors or omissions. [facility] History I have reviewed the patient's past medical history: Yes Medical History: Reports:: Asthma, Cardiomyopathy, Coronary Artery Disease, Depression, Hyperlipidemia, Hypertension Denies:: Cancer, Diabetes Mellitus Type 1, Diabetes Mellitus Type 2, Internal Pacemaker, MRSA, Seizures *Have you ever received a pneumonia vaccine?: Yes *Have you received a flu vaccine this season?: No Other Medical History: Reports: Arthritis, Cataracts. Denies: Blood Transfusion Reaction Laterality Cases: Left: Arthroscopy Shoulder Other Surgeries: Yes: Appendectomy, Cardiac Catheterization, Colonoscopy, Coronary Stent, Hysterectomy-Partial, Tubal Ligation, Other. No: Pacemaker Amputation: No Fractures: Yes (vertibrae x2) - *Social History Smoking Status: Never smoker Alcohol Intake: never Alcohol Intake Frequency:: other Substance Use Type: denies use *Occupational Status:: unemployed Housing: house Household Members: other *Travel in the last 8 weeks: None - Psychiatric History Pschychiatric History:: Reports:: Depression Family Hx:: Unable to obtain HUC history: Spontaneous
== END ==
PROVIDERS: Visit Provider Clinical Nurse Specialist Family Health
DX: M46.1 Sacroiliitis, not elsewhere classified (principal)
CPT/HCPCS: 99212; G0463

== ENCOUNTER → 2021-02-17 10:57 | Outpatient (CLI) | payer MEDICARE, OTHER, SELFPAY | PROVIDERS: PCP Internal Medicine; Visit Provider Internal Medicine | DX: R00.2 Palpitations (principal) | CPT/HCPCS: 93225; 93226 ==

== ENCOUNTER → 2021-02-27 14:47 | Outpatient (POV) | payer MEDICARE, OTHER, SELFPAY ==
[2021-02-27 14:54] VITALS: BP 164/56; PULSE 83; RESP 18; O2SAT 98; BMI 27.4
--- NOTE | 2021-02-27 15:17 | P.CONS_ITS ---
[facility] Pain Management SOAP Note Subjective:: Patient is an 81-year-old white female who presents today for follow-up. The patient is being treated for right sacroiliitis. She did undergo corner lock procedure. She had the procedure performed on 01/29/2021 on the right side. She is doing great today. She rates her pain a 1 out of 10. At last visit she was starting to have some pain in her left low back area and left hip, but reports that this has subsided as well at this time. Review of Systems General: No recent weight changes, no fever, no sleep disturbances Respiratory: No cough, no shortness of air, no recurring pulmonary infections Cardiovascular/peripheral vascular: No chest pain, no palpitations, no edema, no shortness of breath Gastrointestinal: No new onset incontinence, normal bowel movements reported Genitourinary: No new onset incontinence Musculoskeletal: No pain at this time Psychiatric: [Normal mood/affect] Neurological: [Denies weakness in extremities], [denies balance issues] Objective:: Physical exam General: Alert and oriented x3, no acute distress, pleasant and cooperative Lungs: Respirations even and unlabored, symmetrical chest expansion Eyes: PERRL Musculoskeletal: Flexion and extension of [] [spine] nonguarded, normal gait noted Neurological: Speech clear, no gross sensory deficit Assessment:: Sacroiliitis right Plan:: Patient is doing well overall. We will plan to follow-up with her in 3 months f or reevaluation of symptoms. She has been instructed to contact clinic if she has any concerns for next appointment. Patient has been instructed to contact the clinic with any concerns before the next appointment. Dr. Gastelum has reviewed this note and agrees with this plan of care. This note was dictated using voice recognition software and make contain errors or omissions. [facility] History I have reviewed the patient's past medical history: Yes Medical History: Reports:: Asthma, Cardiomyopathy, Coronary Artery Disease, Depression, Hyperlipidemia, Hypertension Denies:: Cancer, Diabetes Mellitus Type 1, Diabetes Mellitus Type 2, Internal Pacemaker, MRSA, Seizures *Have you ever received a pneumonia vaccine?: Yes *Have you received a flu vaccine this season?: Yes Other Medical History: Reports: Arthritis, Cataracts. Denies: Blood Transfusion Reaction Laterality Cases: Left: Arthroscopy Shoulder Other Surgeries: Yes: Appendectomy, Cardiac Catheterization, Colonoscopy, Coronary Stent, Hysterectomy-Partial, Tubal Ligation, Other. 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
== END ==
PROVIDERS: Visit Provider Clinical Nurse Specialist Family Health
DX: M46.1 Sacroiliitis, not elsewhere classified (principal)
CPT/HCPCS: 99212; G0463

== ENCOUNTER → 2021-02-27 16:00 | Outpatient (CLI) | payer MEDICARE, OTHER, SELFPAY ==
--- NOTE | 2021-02-27 16:03 | XR_ITS ---
PROCEDURE: XR CHEST 2V CLINICAL HISTORY: SOB COMPARISON: CR XR CHEST 2V from 05/30/2020 CR XR CHEST PORTABLE from 06/01/2020 CR XR CHEST 2V from 06/17/[address] CHEST WO CON from 10/15/2020 FINDINGS: Mild cardiomegaly without failure. There is a hiatal hernia medium-sized in nature. Increased markings are present in the right lung base consistent with vascular crowding and pericardial fat pad similar to the previous exams. The No lobar consolidation or collapse. Mild degenerative changes thoracic spine. IMPRESSION: Cardiomegaly with hiatal hernia and chronic changes in the right lung base. Dictated by: Austen Huang MD 02/27/2021 16:19 Austen Huang MD in [place] 02/27/2021 16:19
== END ==
PROVIDERS: PCP Internal Medicine; Visit Provider Internal Medicine Pulmonary Disease
DX: J44.9 Chronic obstructive pulmonary disease, unspecified (principal)
CPT/HCPCS: 71046; 99212; G0463

== ENCOUNTER → 2021-02-28 17:08 | Outpatient (CLI) | payer MEDICARE, OTHER, SELFPAY ==
[2021-02-28 18:05] LABS: Reticulocyte % (Auto) 2.7 % (0.9-3.2)
[2021-02-28 18:08] LABS: Iron 23 ug/dL (37-170)
[2021-02-28 18:17] LABS: Total Iron Binding Capacity 508 ug/dL (265-497)
== END ==
PROVIDERS: Visit Provider Internal Medicine
DX: D64.9 Anemia, unspecified (principal); I25.10 Atherosclerotic heart disease of native coronary artery without angina pectoris; I10 Essential (primary) hypertension; M81.0 Age-related osteoporosis without current pathological fracture
CPT/HCPCS: 82728; 83540; 83550; 85044

== ENCOUNTER → 2021-03-27 12:46 | Outpatient (CLI) | payer MEDICARE, OTHER, SELFPAY ==
--- NOTE | 2021-03-27 12:46 | MM_ITS ---
PROCEDURE INFORMATION: Exam: MG Bilateral Screening 3D Mammography Exam date and time: 03/27/2021 12:46 PM Age: 81 years old Clinical indication: Encounter for screening mammogram for malignant neoplasm of breast TECHNIQUE: Imaging protocol: Bilateral screening tomosynthesis and 2D mammography including computer-aided detection (CAD) when performed. COMPARISON: 1. MG MM DIG SCREENING MAMM BI W/CAD 03/05/2020 4:05 PM 2. MG DMSB DIG MAMM-SCREEN CORDELL W/CAD 09/29/2016 9:07 AM FINDINGS: MAMMOGRAPHY: Breast composition: The breasts are almost entirely fatty. Mass: None. Architectural distortion: None. Calcifications: No suspicious calcifications. Asymmetric density: None. Skin thickening: None. Axillary adenopathy: None. IMPRESSION: No mammographic evidence of malignancy. Annual screening is recommended unless otherwise clinically indicated. ASSESSMENT: BI-RADS Category 1: Negative
== END ==
PROVIDERS: PCP Internal Medicine; Visit Provider Nurse Practitioner Obstetrics & Gynecology
DX: Z12.31 Encounter for screening mammogram for malignant neoplasm of breast (principal)
CPT/HCPCS: 77063; 77067

== ENCOUNTER → 2021-03-31 14:18 | Outpatient (CLI) | payer MEDICARE, OTHER, SELFPAY ==
[2021-03-31 14:46] LABS: Basophils % 0.6 % (0.1-2.0); Eosinophils # 0.2 K/mm3 (0.0-0.4); Eosinophils % 3.9 % (0.1-12.0); Hematocrit 28.6 % (37.0-47.0); Hemoglobin 8.1 g/dL (12.2-16.2); Lymphocytes # 1.8 K/mm3 (0.7-4.5); Lymphocytes % 37.6 % (10-50); Mean Corpuscular HGB Conc 28.5 g/dL (31.8-35.4); Mean Corpuscular Hemoglobin 23.1 pg (27.0-31.2); Mean Corpuscular Volume 80.9 fl (81-99); Mean Platelet Volume 8.7 fl (7.4-10.4); Monocytes # 0.3 K/mm3 (0.1-1.0); Monocytes % 6.6 % (1.7-9.3); Neutrophils # 2.5 K/mm3 (1.8-7.8); Neutrophils % 51.3 % (37.0-80.0); Platelet Count 349 K/mm3 (142-424); Red Blood Count 3.53 M/mm3 (4.20-5.40); Red Cell Distribution Width 21.1 % (11.5-17.5); Reticulocyte % (Auto) 2.7 % (0.9-3.2); White Blood Count 4.9 K/mm3 (4.8-10.8)
== END ==
PROVIDERS: Visit Provider Internal Medicine
DX: D50.9 Iron deficiency anemia, unspecified (principal)
CPT/HCPCS: 85025; 85044

== ENCOUNTER → 2021-04-10 10:52 | Outpatient (POV) | payer MEDICARE, OTHER, SELFPAY ==
[2021-04-10 11:07] VITALS: BP 139/59; PULSE 75; RESP 18; O2SAT 96; BMI 28.3
--- NOTE | 2021-04-10 11:16 | HMH.PAINSOAP ---
[facility] Pain Management SOAP Note Subjective:: Patient is a pleasant 81-year-old female who comes in here today for a follow-up. Patient had a previous right cornerlok procedure in January 2021. Today, patient is complaining of left-sided hip pain that is worse with prolonged sitting, standing, walking, and getting up from a seated position. Patient says that this all started the day before Thanksgiving when she food for a long period of time. Because of this, she has now started using a cane to walk. Patient says that she has tried taking her tramadol 50mg which provides a little bit of relief. She also has tried a topical pain cream that a friend gave her that did not help. She rates her pain today as 3 out of 10. She denies any loss of bladder or bowel functions. Her Raghav is [id number] with an active morphine equivalent of 0. Review of Systems General: No recent weight changes, no fever, no sleep disturbances Respiratory: No cough, no shortness of air, no recurring pulmonary infections Cardiovascular/peripheral vascular: No chest pain, no palpitations, no edema, no shortness of breath Gastrointestinal: No new onset incontinence, normal bowel movements reported Genitourinary: No new onset incontinence Musculoskeletal: Left hip pain Psychiatric: [Normal mood/affect] Neurological: [Denies weakness in extremities], [denies balance issues] Objective:: Physical exam General: Alert and oriented x3, no acute distress, pleasant and cooperative Lungs: Respirations even and unlabored, symmetrical chest expansion Eyes: PERRL Musculoskeletal: Left hip +keon, +emily, +compression and +distraction Neurological: Speech clear, no gross sensory deficit Assessment:: Left sacroiliitis, left greater trochanter bursitis Plan:: We will schedule the patient for a left SI injection and left greater trochanteric bursa injection. Risk and benefits of this procedure been discussed with the patient. We will also start the patient on tramadol 50 mg 3 times a day. Risks and benefits of the medication have been explained in detail to the patient. The patient does understand the risk of dependence on the medication when given over a prolonged period. Patient has been advised of risks of oversedation with the prescribed medication. Narcan has been offered to the paitent in the event of oversedation. Patient has been advised that a family member should also be educated regarding administration of Narcan. The patient has been advised to consult with his/her primary care provider and pharmacist regarding drug-drug interaction of medications currently prescribed. Patient has been prescribed a controlled substance after being counseled on the medication, medication safety, and possible side effects. RAGHAV report has been obtained and reviewed prior to prescription and found to be appropriate. Opioid contract was reviewed and signed by the patient, and that they have agreed to all of the terms set forth by our compliance program. Patient has been instructed to contact the clinic with any concerns before the next appointment. Dr. Gastelum has reviewed this note and agrees with this plan of care. This note was dictated using voice recognition software and make contain errors or omissions. [facility] History Medical History: Reports:: Asthma, Cardiomyopathy, Coronary Artery Disease, Depression, Hyperlipidemia, Hypertension Denies:: Cancer, Diabetes Mellitus Type 1, Diabetes Mellitus Type 2, Internal Pacemaker, MRSA, Seizures *Have you ever received a pneumonia vaccine?: Yes *Have you received a flu vaccine this season?: Yes Other Medical History: Reports: Arthritis, Cataracts. Denies: Blood Transfusion Reaction Laterality Cases: Left: Arthroscopy Shoulder Other Surgeries: Yes: Appendectomy, Cardiac Catheterization, Colonoscopy, Coronary Stent, Hysterectomy-Partial, Tubal Ligation, Other. No: Pacemaker Amputation: No Fractures: Yes (vertibra
== END ==
PROVIDERS: Visit Provider Clinical Nurse Specialist Family Health
DX: M46.1 Sacroiliitis, not elsewhere classified (principal); M70.60 Trochanteric bursitis, unspecified hip
CPT/HCPCS: 99212; G0463

== ENCOUNTER 2021-04-11 10:53 | Outpatient (CLI) | payer MEDICARE, OTHER, SELFPAY ==
[2021-04-11 12:30] VITALS: BP 137/61; PULSE 67; RESP 17; TEMP 36.8; O2SAT 98
[2021-04-11 13:12] VITALS: BP 143/58; PULSE 62; RESP 17; O2SAT 98
== END 2021-04-11 13:15 | disposition home or self-care (01) ==
LOC: INF 10:55
PROVIDERS: PCP Internal Medicine; Visit Provider Internal Medicine
DX: D64.9 Anemia, unspecified (principal)
CPT/HCPCS: 96365; J1439

== ENCOUNTER 2021-04-18 10:56 | Outpatient (CLI) | payer MEDICARE, OTHER, SELFPAY ==
[2021-04-18 11:51] VITALS: BP 144/51; PULSE 58; RESP 18; TEMP 36.3; O2SAT 98
[2021-04-18 12:20] VITALS: BP 139/72; PULSE 59; RESP 16; O2SAT 100
[2021-04-18 12:40] VITALS: BP 142/72; PULSE 61; RESP 18; TEMP 36.5; O2SAT 100
== END 2021-04-18 12:55 | disposition home or self-care (01) ==
LOC: INF 10:57
PROVIDERS: PCP Internal Medicine; Visit Provider Family Medicine
DX: D64.9 Anemia, unspecified (principal)
CPT/HCPCS: 96365; J1439

== ENCOUNTER 2021-04-25 09:41 | Day surgery (SDC) | payer MEDICARE, OTHER, SELFPAY ==
[2021-04-25 09:53] VITALS: BP 139/76; PULSE 71; RESP 18; TEMP 36.6; O2SAT 100; BMI 27.4
[2021-04-25 10:09] VITALS: PULSE 67; RESP 18; O2SAT 97
[2021-04-25 10:10] VITALS: BP 135/70; PULSE 65; RESP 18; O2SAT 97
[2021-04-25 10:25] VITALS: BP 139/85; PULSE 63; RESP 20; O2SAT 100
--- NOTE | 2021-04-25 10:31 | P.PCN_ITS ---
- Procedure Date: 04/25/21 Time: 10:31 Anesthesiologist:: Lyla Villafana MD Complications:: None Pre-procedure Diagnosis:: Left-sided sacroiliitis, left sided trochanteric bursitis, left-sided hip pain, left-sided chronic low back pain Post-procedure Diagnosis:: Same Indications for Procedure:: This patient is a very pleasant 81-year-old white female who presents today with chronic left-sided low back and hip pain related to the above diagnosis. She is trialed and failed conservative treatment including oral pain medications and home stretching program for greater than 6 weeks. She has previously trialed tramadol 50 mg but she states this only provide her very mild and temporary pain relief. She has also tried topical pain cream that did not help. The plan for today is for the patient to undergo left-sided SI joint injection and a left- sided trochanteric bursa injection under fluoroscopy #1. Procedure Details:: Informed consent was obtained and the risks and benefits of the procedure was going to the patient. Patient was taken to the procedure room. Patient was placed prone on the procedure table. The left hip was prepped using ChloraPrep. The skin and subcutaneous tissues were anesthetized using lidocaine. I placed a 22-gauge spinal needle into the inferior aspect of the left SI joint. Needle placement was confirmed with dye. After this we injected 5 mL bupivacaine 0.25% and Depo-Medrol 40 mg into the right SI joint. The patient tolerated the procedure well with no complication. Next, the skin and subcutaneous tissues overlying the left trochanteric bursa were anesthetized using 2 ml of 1% lidocaine. I placed a 22-gauge spinal needle under fluoroscopic guidance and advanced until it contacted the left greater trochanter. Needle placement was confirmed with dye. After this we injected 5 mL bupivacaine 0.25% and Depo-Medrol 40 mg. Patient tolerated the procedure well with no complications. Plan and Disposition:: We will follow-up with this patient in 2 weeks. Will reevaluate pain symptoms at that time.
== END 2021-04-25 10:25 | disposition home or self-care (01) ==
LOC: SC.PAINP 09:42
PROVIDERS: PCP Internal Medicine; Visit Provider Anesthesiology Pain Medicine
DX: M46.1 Sacroiliitis, not elsewhere classified (principal); M70.62 Trochanteric bursitis, left hip; M54.50 Low back pain, unspecified; G89.29 Other chronic pain; E78.5 Hyperlipidemia, unspecified; I10 Essential (primary) hypertension; J45.909 Unspecified asthma, uncomplicated; F32.A Depression, unspecified; H25.9 Unspecified age-related cataract; I25.10 Atherosclerotic heart disease of native coronary artery without angina pectoris; Z79.82 Long term (current) use of aspirin; Z79.890 Hormone replacement therapy; Z79.899 Other long term (current) drug therapy; Z88.8 Allergy status to other drugs, medicaments and biological substances
CPT/HCPCS: 20610; 27096; 77002; G0260; J1040; Q9966

== ENCOUNTER → 2021-05-07 12:48 | Outpatient (CLI) | payer MEDICARE, OTHER, SELFPAY ==
[2021-05-07 13:16] LABS: Basophils # 0.1 K/mm3 (0-0.2); Basophils % 0.9 % (0.1-2.0); Eosinophils # 0.2 K/mm3 (0.0-0.4); Eosinophils % 2.8 % (0.1-12.0); Hematocrit 40.4 % (37.0-47.0); Hemoglobin 12.3 g/dL (12.2-16.2); Lymphocytes # 1.8 K/mm3 (0.7-4.5); Lymphocytes % 24.5 % (10-50); Mean Corpuscular HGB Conc 30.4 g/dL (31.8-35.4); Mean Corpuscular Hemoglobin 28.4 pg (27.0-31.2); Mean Corpuscular Volume 93.5 fl (81-99); Mean Platelet Volume 8.4 fl (7.4-10.4); Monocytes # 0.5 K/mm3 (0.1-1.0); Monocytes % 6.5 % (1.7-9.3); Neutrophils # 4.7 K/mm3 (1.8-7.8); Neutrophils % 65.4 % (37.0-80.0); Platelet Count 295 K/mm3 (142-424); Red Blood Count 4.33 M/mm3 (4.20-5.40); Reticulocyte % (Auto) 2.3 % (0.9-3.2); White Blood Count 7.2 K/mm3 (4.8-10.8)
[2021-05-07 14:04] LABS: Red Cell Distribution Width 27.1 % (11.5-17.5)
== END ==
LOC: LAB 12:48 → LAB.DROPOF 12:49
PROVIDERS: Visit Provider Internal Medicine
DX: D50.9 Iron deficiency anemia, unspecified (principal)
CPT/HCPCS: 85025; 85044

== ENCOUNTER → 2021-05-15 09:33 | Outpatient (POV) | payer MEDICARE, OTHER, SELFPAY ==
[2021-05-15 09:54] VITALS: BP 137/75; PULSE 67; RESP 18; O2SAT 98; BMI 27.1
--- NOTE | 2021-05-15 11:34 | HMH.PAINSOAP ---
[facility] Pain Management SOAP Note Subjective:: Patient is an 81-year-old white female who presents today for follow-up. She recently had a left SI injection left trochanteric bursa injection. She got significant relief following the injection. Patient says that the pain does return midday to evening. She is having pain once again to the right SI joint where she previously had her SI corner lock procedure. She says that as the day progresses, the pain does intensify to the area. Today, while sitting, her pain is a 2 out of 10. With standing and walking the pain does worsen. She has taken tramadol and [place] in the past. Tramadol has given her no relief. We did discuss a low dose of [place] to take as needed in between injective therapy. Review of Systems General: No recent weight changes, no fever, no sleep disturbances Respiratory: No cough, no shortness of air, no recurring pulmonary infections Cardiovascular/peripheral vascular: No chest pain, no palpitations, no edema, no shortness of breath Gastrointestinal: No new onset incontinence, normal bowel movements reported Genitourinary: No new onset incontinence Musculoskeletal: Low back pain with radiation into bilateral buttock and hips Psychiatric: [Normal mood/affect] Neurological: [Denies weakness in extremities], [denies balance issues] Objective:: Physical exam General: Alert and oriented x3, no acute distress, pleasant and cooperative Lungs: Respirations even and unlabored, symmetrical chest expansion Eyes: PERRL Musculoskeletal: Flexion and extension of lumbar [spine] somewhat guarded secondary to pain, [antalgic gait noted], positive Johanna's test, positive distraction test, positive compression test, positive Ana's test Neurological: Speech clear, no gross sensory deficit Assessment:: Sacroiliitis left, trochanteric bursitis left Plan:: We will start the patient on [place] 5 mg 1 tablet p.o. twice daily. She will continue with injective therapy in the clinic. We will give her a month medication see her back in clinic in 1 month. Patient has been advised of the risks of [place] she does understand that there is a high risk of dependence on the medication as well as a risk for oversedation. Raghav #[id number] has been reviewed and is appropriate. Screen is appropriate. Morphine equivalent dyspnea. Risks and benefits of the medication have been explained in detail to the patient. The patient does understand the risk of dependence on the medication when given over a prolonged period. Patient has been advised of risks of oversedation with the prescribed medication. Narcan has been offered to the paitent in the event of oversedation. Patient has been advised that a family member should also be educated regarding administration of Narcan. The patient has been advised to consult with his/her primary care provider and pharmacist regarding drug-drug interaction of medications currently prescribed. Patient has been prescribed a controlled substance after being counseled on the medication, medication safety, and possible side effects. RAGHAV report has been obtained and reviewed prior to prescription and found to be appropriate. Opioid contract was reviewed and signed by the patient, and that they have agreed to all of the terms set forth by our compliance program. Patient has been instructed to contact the clinic with any concerns before the next appointment. Dr. Gastelum has reviewed this note and agrees with this plan of care. This note was dictated using voice recognition software and make contain errors or omissions. [facility] History I have reviewed the patient's past medical history: Yes Medical History: Reports:: Asthma, Cardiomyopathy, Coronary Artery Disease, Depression, Hyperlipidemia, Hypertension Denies:: Cancer, Diabetes Mellitus Type 1, Diabetes Mellitus Type 2, Internal Pacemaker, MRSA, Seizures Comment Only: Congestive Heart Failure (diastolic dysf
== END ==
PROVIDERS: Visit Provider Clinical Nurse Specialist Family Health
DX: M46.1 Sacroiliitis, not elsewhere classified (principal); M70.62 Trochanteric bursitis, left hip
CPT/HCPCS: 99212; G0463

== ENCOUNTER → 2021-05-29 14:01 | Outpatient (POV) | payer MEDICARE, OTHER, SELFPAY ==
[2021-05-29 14:19] VITALS: BP 138/64; PULSE 70; RESP 18; TEMP 36.7; O2SAT 91; BMI 26.3
--- NOTE | 2021-05-29 14:48 | HMH.PAINSOAP ---
[facility] Pain Management SOAP Note Subjective:: Patient is an 81-year-old white female who presents today for follow-up. She rates her pain a 2 out of 10 at this time. She has undergone a left SI joint injection in the past which gives her significant relief along with the left trochanteric bursa injection. She is status post right SI corner lock. The patient does say that she recently took oral prednisone for pain relief to her left hip. She was given [place] at last visit, but has not taken the medicine due to concerns of taking both medications together. Today she says she is getting some relief following the steroids. Review of Systems General: No recent weight changes, no fever, no sleep disturbances Respiratory: No cough, no shortness of air, no recurring pulmonary infections Cardiovascular/peripheral vascular: No chest pain, no palpitations, no edema, no shortness of breath Gastrointestinal: No new onset incontinence, normal bowel movements reported Genitourinary: No new onset incontinence Musculoskeletal: Left low back and left hip pain Psychiatric: [Normal mood/affect] Neurological: [Denies weakness in extremities], [denies balance issues] Objective:: Physical exam General: Alert and oriented x3, no acute distress, pleasant and cooperative Lungs: Respirations even and unlabored, symmetrical chest expansion Eyes: PERRL Musculoskeletal: Flexion and extension of lumbar [spine] somewhat guarded secondary to pain, [antalgic gait noted], positive Johanna's test, positive Ana's test, positive compression test, positive Gaenslen's test Neurological: Speech clear, no gross sensory deficit Assessment:: Sacroiliitis left Plan:: Patient has not taken any of the [place] prescribed to her at last visit. She will continue with the medication, as she we will complete her dose of prednisone today.. We will plan to follow-up with her in 3 weeks to see if the medication is relieving the pain. She will likely need to undergo a left SI joint injection with possible SI corner lock in the future. Risks and benefits of the medication have been explained in detail to the patient. The patient does understand the risk of dependence on the medication when given over a prolonged period. Patient has been advised of risks of oversedation with the prescribed medication. Narcan has been offered to the paitent in the event of oversedation. Patient has been advised that a family member should also be educated regarding administration of Narcan. The patient has been advised to consult with his/her primary care provider and pharmacist regarding drug-drug interaction of medications currently prescribed. Patient has been prescribed a controlled substance after being counseled on the medication, medication safety, and possible side effects. RAGHAV report has been obtained and reviewed prior to prescription and found to be appropriate. Opioid contract was reviewed and signed by the patient, and that they have agreed to all of the terms set forth by our compliance program. Patient has been instructed to contact the clinic with any concerns before the next appointment. Dr. Gastelum has reviewed this note and agrees with this plan of care. This note was dictated using voice recognition software and make contain errors or omissions. [facility] History I have reviewed the patient's past medical history: Yes Medical History: Reports:: Asthma, Cardiomyopathy, Coronary Artery Disease, Depression, Hyperlipidemia, Hypertension Denies:: Cancer, Diabetes Mellitus Type 1, Diabetes Mellitus Type 2, Internal Pacemaker, MRSA, Seizures Comment Only: Congestive Heart Failure (diastolic dysfunction) *Have you ever received a pneumonia vaccine?: Yes *Have you received a flu vaccine this season?: Yes Other Medical History: Reports: Arthritis, Cataracts. Denies: Blood Transfusion Reaction Laterality Cases: Left: Arthroscopy Shoulder Other Surgeries: Yes: Appendectomy,
== END ==
PROVIDERS: Visit Provider Clinical Nurse Specialist Family Health
DX: M46.1 Sacroiliitis, not elsewhere classified (principal)
CPT/HCPCS: 99212; G0463

== ENCOUNTER → 2021-06-16 08:37 | Outpatient (POV) | payer MEDICARE, OTHER, SELFPAY ==
[2021-06-16 09:00] VITALS: BP 135/76; PULSE 90; RESP 18; O2SAT 97; BMI 26.3
--- NOTE | 2021-06-16 10:48 | HMH.PAINSOAP ---
[facility] Pain Management SOAP Note Subjective:: Patient is an 81-year-old white female who is following up today with complaints of left hip and left buttock pain. She is also having left groin pain. Patient does have a history of right sacroiliitis and did undergo corner lock to the right side. She says that the left bursa injection and left SI injection gave her significant relief in the past. She is taking Tylenol for pain relief. She says [place] did not help with the pain. She is no longer taking. She says she is unable to tolerate anti-inflammatories due to GI upset. The patient does not feel that her pain is SI related. She feels that it is from the hip. She has not had any imaging of her hip at this time. She did get up to 70 to 80% relief for short period of time?1 week with the left trochanteric bursa injection and left SI injection. Review of Systems General: No recent weight changes, no fever, no sleep disturbances Respiratory: No cough, no shortness of air, no recurring pulmonary infections Cardiovascular/peripheral vascular: No chest pain, no palpitations, no edema, no shortness of breath Gastrointestinal: No new onset incontinence, normal bowel movements reported Genitourinary: No new onset incontinence Musculoskeletal: [] Left low back pain, left buttock pain, left hip pain, left groin pain Psychiatric: [Normal mood/affect] Neurological: [Denies weakness in extremities], [denies balance issues] Objective:: Physical exam General: Alert and oriented x3, no acute distress, pleasant and cooperative Lungs: Respirations even and unlabored, symmetrical chest expansion Eyes: PERRL Musculoskeletal: Flexion and extension of lumbar [spine] somewhat guarded secondary to pain, [antalgic gait noted], tender to palpation left hip, positive, positive compression test, positive Ana's test left Neurological: Speech clear, no gross sensory deficit Assessment:: Trochanteric bursitis left, sacroiliitis left Plan:: Patient does not feel her pain is related to her SI joint. She would like to undergo a repeat injection to the left bursa. She has not had any imaging of her hip. She feels this is where most of her pain is originating. She reports the pain to only be a 3 out of 10 today, but she does say it is excruciating with any movement. We will order MRI left hip and schedule patient for left trochanteric bursa injection. We will see her back afterwards for reevaluation. Possible side effects of corticosteroids have been discussed with the patient. Risks and benefits of the procedure have been explained to the patient. Patient would like to proceed with the procedure. Patient has been instructed to contact the clinic with any concerns before the next appointment. Dr. Gastelum has reviewed this note and agrees with this plan of care. This note was dictated using voice recognition software and make contain errors or omissions. [facility] History I have reviewed the patient's past medical history: Yes Medical History: Reports:: Asthma, Cardiomyopathy, Coronary Artery Disease, Depression, Hyperlipidemia, Hypertension Denies:: Cancer, Diabetes Mellitus Type 1, Diabetes Mellitus Type 2, Internal Pacemaker, MRSA, Seizures Comment Only: Congestive Heart Failure (diastolic dysfunction) *Have you ever received a pneumonia vaccine?: Yes *Have you received a flu vaccine this season?: Yes Other Medical History: Reports: Arthritis, Cataracts. Denies: Blood Transfusion Reaction Laterality Cases: Left: Arthroscopy Shoulder Other Surgeries: Yes: Appendectomy, Cardiac Catheterization, Colonoscopy, Coronary Stent, Hysterectomy-Partial, Tubal Ligation, Other. No: Pacemaker Amputation: No Fractures: Yes (vertibrae x2, R KNEE) - *Social History Smoking Status: Never smoker Alcohol Intake: never Alcohol Intake Frequency:: other Substance Use Type: denies use *Occupational Status:: unemployed, retired Housing: house Household Members: none
== END ==
PROVIDERS: Visit Provider Clinical Nurse Specialist Family Health
DX: M70.62 Trochanteric bursitis, left hip (principal); M46.1 Sacroiliitis, not elsewhere classified
CPT/HCPCS: 99212; G0463

== ENCOUNTER → 2021-06-18 08:15 | Outpatient (CLI) | payer MEDICARE, OTHER, SELFPAY | PROVIDERS: PCP Internal Medicine; Visit Provider Clinical Nurse Specialist Family Health | DX: M25.552 Pain in left hip (principal) ==

== ENCOUNTER → 2021-07-16 12:44 | Outpatient (CLI) | payer MEDICARE, OTHER, SELFPAY ==
[2021-07-16 15:20] LABS: Basophils # 0.1 K/mm3 (0-0.2); Basophils % 0.9 % (0.1-2.0); Eosinophils # 0.2 K/mm3 (0.0-0.4); Hematocrit 45.2 % (37.0-47.0); Hemoglobin 14.2 g/dL (12.2-16.2); Lymphocytes # 1.9 K/mm3 (0.7-4.5); Lymphocytes % 30.2 % (10-50); Mean Corpuscular HGB Conc 31.4 g/dL (31.8-35.4); Mean Corpuscular Hemoglobin 30.5 pg (27.0-31.2); Mean Corpuscular Volume 97.2 fl (81-99); Mean Platelet Volume 9.9 fl (7.4-10.4); Monocytes # 0.5 K/mm3 (0.1-1.0); Monocytes % 8.6 % (1.7-9.3); Neutrophils # 3.6 K/mm3 (1.8-7.8); Neutrophils % 57.3 % (37.0-80.0); Platelet Count 241 K/mm3 (142-424); Red Blood Count 4.65 M/mm3 (4.20-5.40); Red Cell Distribution Width 19.2 % (11.5-17.5); White Blood Count 6.3 K/mm3 (4.8-10.8)
== END ==
PROVIDERS: Visit Provider Internal Medicine
DX: D50.9 Iron deficiency anemia, unspecified (principal)
CPT/HCPCS: 85025

== ENCOUNTER → 2021-07-24 07:47 | Outpatient (CLI) | payer MEDICARE, OTHER, SELFPAY ==
[2021-07-24 12:00] LABS: Adenovirus F 40/41, stool Not Detected (NotDetected); Astrovirus Not Detected (NotDetected); Campylobacter Not Detected (NotDetected); Clostridium Difficile A/B, PCR Not Detected (NotDetected); Cryptosporidium Not Detected (NotDetected); Cyclospora Cayetanesis Not Detected (NotDetected); Entamoeba histolytica Not Detected (NotDetected); Enteroaggregative E coli Not Detected (NotDetected); Enteropathogenic E coli Not Detected (NotDetected); Enterotoxigenic E coli Not Detected (NotDetected); Giardia lamblia Not Detected (NotDetected); Norovirus Not Detected (NotDetected); Plesimonas Shigalloides, PCR Not Detected (NotDetected); Rotavirus A Not Detected (NotDetected); Salmonella, PCR Not Detected (NotDetected); Sapovirus Not Detected (NotDetected); Shiga-like toxin E coli Not Detected (NotDetected); Shigella Enterovasive E coli Not Detected (NotDetected); Vibrio Cholerae Not Detected (NotDetected); Vibrio, PCR Not Detected (NotDetected); Yersinia Entercolitica, PCR Not Detected (NotDetected)
== END ==
PROVIDERS: Visit Provider Internal Medicine
DX: R19.7 Diarrhea, unspecified
CPT/HCPCS: 87205; 87506

== ENCOUNTER → 2021-09-01 15:11 | Outpatient (CLI) | payer MEDICARE, OTHER, SELFPAY ==
--- NOTE | 2021-09-01 15:16 | XR_ITS ---
FINAL REPORT CLINICAL HISTORY: SHOULDER PAIN AND SWELLING, fall year ago FINDINGS: 3 views of the right shoulder were obtained. There is no acute fracture or dislocation. There are mild hypertrophic changes at the AC joint. There are no soft tissue abnormalities. IMPRESSION: Mild hypertrophic changes at the AC joint. Reviewed, Interpreted and Dictated by Santhosh Frazier MD Transcribed by David Pierre Authenticated by Santhosh Frazier MD on 09/01/2021 04:32:53 PM [facility]
== END ==
PROVIDERS: PCP Internal Medicine; Visit Provider Internal Medicine
DX: M25.511 Pain in right shoulder (principal); M25.411 Effusion, right shoulder
CPT/HCPCS: 73030

== ENCOUNTER → 2021-09-08 09:38 | Outpatient (CLI) | payer MEDICARE, OTHER, SELFPAY | PROVIDERS: Visit Provider Internal Medicine | DX: Z01.812 Encounter for preprocedural laboratory examination (principal); Z11.52 Encounter for screening for COVID-19; Z12.11 Encounter for screening for malignant neoplasm of colon | CPT/HCPCS: C9803; U0003; U0005 ==

== ENCOUNTER 2021-09-10 08:29 | Day surgery (SDC) | payer MEDICARE, OTHER, SELFPAY ==
[2021-09-08 08:56] VITALS: BMI 26.3
[2021-09-10 08:52] VITALS: BP 143/58; PULSE 63; RESP 16; TEMP 36.1; O2SAT 96
--- NOTE | 2021-09-10 09:43 | HMH.ANESCL ---
[facility] Anesthesia Checklist - Structural Data Admitted From: Home Planned Operative Procedure/s: egd,colonoscopy Consent for Planned Operative Procedure(s) Verified: Yes - Additional verifications Anesthesia Reactions: No Hx Blood Transfusions: No Blood Transfusion Reaction: No - Airway Assessment C-Spine Mobility Assessed: Yes TMJ Mobility Assessed: Yes Dentition: Good Dentition - Neurological Assessment Level of Consciousness: Awake, Alert, Appropriate - Anesthesia Plan Anesthesia Risk discussed: Yes Anesthesia Plan: Verified ASA Class: II Anesthesia Type: [facility] History I have reviewed the patient's past medical history: Yes Medical History: Reports:: Asthma, Cardiomyopathy, Coronary Artery Disease, Depression, Hyperlipidemia, Hypertension Denies:: Cancer, Diabetes Mellitus Type 1, Diabetes Mellitus Type 2, Internal Pacemaker, MRSA, Seizures Comment Only: Congestive Heart Failure (diastolic dysfunction) *Have you ever received a pneumonia vaccine?: Yes *Have you received a flu vaccine this season?: Yes Other Medical History: Reports: Arthritis, Cataracts. Denies: Blood Transfusion Reaction Anesthesia experience/problems:: none Laterality Cases: Left: Arthroscopy Shoulder Other Surgeries: Yes: Appendectomy, Cardiac Catheterization, Colonoscopy, Coronary Stent, Hysterectomy-Partial, Tubal Ligation, Other. No: Pacemaker Amputation: No Fractures: Yes (vertibrae x2, R KNEE) - *Social History Last grade of school completed: High school graduate Smoking Status: Never smoker Alcohol Intake: never Alcohol Intake Frequency:: other Substance Use Type: denies use *Occupational Status:: retired Housing: house Household Members: none *Travel in the last 8 weeks: None - Psychiatric History Pschychiatric History:: Reports:: Depression Family Hx:: Unable to obtain BEEF GRINDER history: Spontaneous
[2021-09-10 10:22] VITALS: BP 99/48; PULSE 68; RESP 18; TEMP 36.6; O2SAT 96
--- NOTE | 2021-09-10 10:22 | HMH.SCOPE ---
- Procedure: Date: 09/10/21 Patient Date of :: 1940 Procedure Performed:: EGD Indications:: Chronic GERD. Hiatal hernia Performing Provider:: Donavon Shepard MD Referring Provider:: Deshaun Dupree MD Sedation:: See RN notes Procedure:: The gastroscope was gently passed through the incisoral orifice into the oral cavity and under direct visualization the esophagus was intubated. The endoscope was passed down the esophagus, through the stomach, and into the duodenum. Color, texture, mucosa, and anatomy of the esophagus, stomach, and duodenum were carefully examined with the scope. Findings:: Oropharynx: normal Esophagus: Tortuous distal esophagus secondary to large hiatal hernia EG Junction: measured at 30 cm Cardia and fundus: Large hiatal hernia approximately 8-9 cm in size. Small zoran's erosion Body: Minimal gastritis. Biopsy obtained Antrum: Gastritis. Biopsies obtained Duodenal bulb: normal Duodenum (second and third portion): normal Recommendations:: Await pathology results Consider surgical evaluation of large hiatal hernia Complications:: None Estimated blood obtained (mL): 0
--- NOTE | 2021-09-10 10:29 | HMH.SCOPE ---
- Procedure: Date: 09/10/21 Patient Date of :: 1940 Procedure Performed:: Colonoscopy Indications:: The patient is an 81 year old with history of colon polyps in the past Performing Provider:: Donavon Shepard MD Referring Provider:: Deshaun Dupree MD Sedation:: See RN notes Procedure:: After placing the patient in the left lateral decubitus position, the colonoscopy was gently inserted into the rectum and under direct visualization advanced to the cecum which was identified by transillumination in the right lower quadrant, identification of the ileocecal valve, appendiceal orifice, and cecal strap. Color, texture, mucosa, and anatomy of the colon were carefully examined with the scope. Findings:: Anal canal: normal Rectum: Diminutive polyp. Removed with cold forceps Sigmoid colon: normal without polyps or inflammatory changes Descending colon: normal without polyps or inflammatory changes Splenic flexure: normal Transverse colon: normal without polyps or inflammatory changes Hepatic flexure: normal Ascending colon: normal without polyps or inflammatory changes Cecum: normal Terminal ileum: not visualized Recommendations:: Await pathology results In view of age, no further surveillance colonoscopy can be recommended. Complications:: None Estimated blood obtained (mL): 0
[2021-09-10 10:32] VITALS: BP 128/67; PULSE 65; RESP 16; O2SAT 95
[2021-09-10 10:42] VITALS: BP 117/68; PULSE 63; RESP 16; O2SAT 97
[2021-09-10 10:53] VITALS: BP 129/63; PULSE 68; RESP 16; TEMP 36.6; O2SAT 97
== END 2021-09-10 10:55 | disposition home or self-care (01) ==
LOC: OUTP 08:30
PROVIDERS: PCP Internal Medicine; Visit Provider Internal Medicine
PROC: 0DJ08ZZ Inspection of Upper Intestinal Tract, Via Natural or Artificial Opening Endoscopic (ICD-10-PCS; CPT 43235; principal; 2021-09-10 09:30)
DX: Z12.11 Encounter for screening for malignant neoplasm of colon (principal); Z86.010 Personal history of colon polyps; K62.1 Rectal polyp; K21.9 Gastro-esophageal reflux disease without esophagitis; K44.9 Diaphragmatic hernia without obstruction or gangrene; K22.2 Esophageal obstruction; K29.70 Gastritis, unspecified, without bleeding; K22.10 Ulcer of esophagus without bleeding; J45.909 Unspecified asthma, uncomplicated; I42.9 Cardiomyopathy, unspecified; I25.10 Atherosclerotic heart disease of native coronary artery without angina pectoris; E87.5 Hyperkalemia; I10 Essential (primary) hypertension
CPT/HCPCS: 43239; 45380; 88305

== ENCOUNTER → 2021-10-22 13:50 | Outpatient (CLI) | payer MEDICARE, OTHER, SELFPAY ==
[2021-10-22 15:39] LABS: Basophils # 0.1 K/mm3 (0-0.2); Basophils % 0.9 % (0.1-2.0); Eosinophils # 0.2 K/mm3 (0.0-0.4); Hematocrit 45.2 % (37.0-47.0); Hemoglobin 14.7 g/dL (12.2-16.2); Lymphocytes # 1.9 K/mm3 (0.7-4.5); Lymphocytes % 23.4 % (10-50); Mean Corpuscular HGB Conc 32.6 g/dL (31.8-35.4); Mean Corpuscular Volume 98.2 fl (81-99); Mean Platelet Volume 9.6 fl (7.4-10.4); Monocytes # 0.6 K/mm3 (0.1-1.0); Monocytes % 7.3 % (1.7-9.3); Neutrophils # 5.2 K/mm3 (1.8-7.8); Neutrophils % 65.5 % (37.0-80.0); Platelet Count 256 K/mm3 (142-424); Red Cell Distribution Width 15.1 % (11.5-17.5); White Blood Count 7.9 K/mm3 (4.8-10.8)
== END ==
PROVIDERS: PCP Internal Medicine; Visit Provider Internal Medicine
DX: D50.9 Iron deficiency anemia, unspecified (principal)
CPT/HCPCS: 85025

== ENCOUNTER 2021-11-28 09:07 | Emergency (ER) | payer MEDICARE, OTHER, SELFPAY ==
[2021-11-28 09:08] VITALS: BP 123/57; PULSE 77; RESP 18; TEMP 36.6; O2SAT 97; BMI 24.7
[2021-11-28 09:28] VITALS: BP 123/57; PULSE 77; RESP 16; TEMP 36.6; O2SAT 97
--- NOTE | 2021-11-28 09:29 | HMH.EDUTC ---
[facility] Disposition Clinical Impression: Viral syndrome Disposition: Home, Self-Care Condition on Discharge: Good Instructions: Sore Throat, Cough Additional Instructions: *Monitor Temp, Over the counter Motrin or Tylenol as directed/as needed Tylenol every 4 hours and Motrin every 6 hours (as long as your family doctor has told you that you can take it) for fever or pain. and straight to ER if unable to lower temp less than 101.0 after medication given *Warm salt water gargles may help to soothe the throat *Throat Lozenges *Warm fluids like tea with honey may help to soothe the throat *Sleep elevated *Humidifier/Vaporizer Your throat swab was sent for culture. Those results are typically sent to your primary care. Be sure to follow up in 2-3 days with your family doctor/primary care physician if no improvement so they can review those result and treat if necessary. If you don?t have a primary care doctor, I recommend you get one but in the mean time, you will have to return to a walk in clinic Follow up IMMEDIATELY for new or worsening symptoms or no Noticeable improvement over the next 48-72 hours. 911 for difficulty breathing or swallowing You were tested for today for COVID19 your test result should be back in the next 24-48 hours, you may check your results on the [facility] My Health Portal Make sure to take your Vitamins Vit. C Vit D and Zinc if you can take them Prescriptions: cephALEXin [cephALEXin 500mg capsule*] 500 mg PO BID 10 Days #20 cap Transmission Status: Pending to [id number] Referrals: Deshaun Dupree MD [Primary Care Provider] - As needed Time of Disposition: 09:45 Medical Decision Making - Camilo Inquiry Pt receiving controlled substance: No Camilo was queried for this patient: No Vital Signs: 11/28/21 09:08 11/28/21 09:28 Temperature 97.9 F 97.9 F Temperature Source Oral Oral Pulse Rate 77 Pulse Rate [Left Radial] 77 Respiratory Rate 18 16 Blood Pressure 123/57 L Blood Pressure [Right Arm] 123/57 L Blood Pressure Mean [Right Arm] 79 Blood Pressure Source Automatic Cuff Blood Pressure Source [Right Arm] Automatic Cuff Blood Pressure Position Sitting Blood Pressure Position [Right Arm] Sitting 02 Sat by Pulse Oximetry 97 Oxygen Delivery Method Room Air Room Air - Lab Data Lab results reviewed: Yes: I reviewed the patient's lab results. Lab Results 11/28/21 09:27: Strep Scn Rapid Clinic Positive A Orders (Tests/Meds): ORDERS Category Date Time Status Covid-19 Nasal PCR ([facility]) Routine Lab 11/28/21 09:25 Received [facility] HPI - General Stated complaint: covid test Time Seen by Provider: 11/28/21 09:29 Mode of Arrival: Ambulatory Source of Information: Patient Limitations: No Limitations Description of Symptoms (Recalled from Triage Doc. by RN): throat irritation non productive cough since yesterday HEENT Symptoms (Recalled from RN notes): Yes Resp Symptoms (Recalled from RN notes): No Skin Symptoms (Recalled from RN notes): No MS Symptoms (Recalled from RN notes): No Functional Status (Recalled from RN notes): na - History of Present Illness Provider Complaint: Patient states that she was around someone last week with COVID States that she started feeling bad yesteryday States that she has been having scratchy throat and cough so today she came in to get tested - Related Data Home Medications Medication Instructions Recorded Confirmed aspirin 81 mg tablet,delayed 81 mg PO DAILY 03/21/18 11/13/21 release cholecalciferol (vitamin D3) 25 1,000 unit PO DAILY 09/20/18 11/13/21 mcg (1,000 unit) capsule omeprazole 40 mg capsule,delayed 40 mg PO DAILY 90 Days #90 cap 09/20/18 11/13/21 release vitamin B complex 1 tab PO DAILY 09/20/18 11/13/21 Calcium Carbonate [Calcium] 1,000 mg PO DAILY 03/23/19 11/13/21 Spironolactone [Spironolactone 25 mg PO DAILY 06/01/20 11/13/21 25mg Tablet] fluticasone propionate 50 50 mcg INTRANASAL DAILY 06/17/20 0
[2021-11-28 09:36] LABS: UTC Strep Screen (Rapid) Positive (Negative)
[2021-11-28 09:47] VITALS: BP 123/57; PULSE 77; RESP 16; TEMP 36.6; O2SAT 97
== END 2021-11-28 09:47 | disposition home or self-care (01) ==
PROVIDERS: Emergency Provider Nurse Practitioner; PCP Internal Medicine
DX: J02.0 Streptococcal pharyngitis (principal); B95.0 Streptococcus, group A, as the cause of diseases classified elsewhere; U07.1 COVID-19; B34.9 Viral infection, unspecified; R94.31 Abnormal electrocardiogram [ECG] [EKG]; I11.0 Hypertensive heart disease with heart failure; I50.9 Heart failure, unspecified; I25.10 Atherosclerotic heart disease of native coronary artery without angina pectoris; I42.9 Cardiomyopathy, unspecified; E78.5 Hyperlipidemia, unspecified; M19.90 Unspecified osteoarthritis, unspecified site; J44.9 Chronic obstructive pulmonary disease, unspecified; F32.A Depression, unspecified; Z79.51 Long term (current) use of inhaled steroids; Z79.52 Long term (current) use of systemic steroids; Z79.82 Long term (current) use of aspirin; Z79.899 Other long term (current) drug therapy; Z88.8 Allergy status to other drugs, medicaments and biological substances; Z95.5 Presence of coronary angioplasty implant and graft
CPT/HCPCS: 87880; 99213; C9803; G0463; U0003; U0005

== ENCOUNTER 2021-12-04 11:06 | Emergency (ER) | payer MEDICARE, OTHER, SELFPAY ==
[2021-12-04 11:43] VITALS: BP 0/0; PULSE 0; RESP 0; TEMP -17.7; TEMP 0
== END 2021-12-04 11:41 | disposition left against medical advice (07) ==
PROVIDERS: Emergency Provider Nurse Practitioner; PCP Internal Medicine
DX: Z53.21 Procedure and treatment not carried out due to patient leaving prior to being seen by health care provider (principal)

== ENCOUNTER 2021-12-11 10:51 | Emergency (ER) | payer MEDICARE, OTHER, SELFPAY ==
--- NOTE | 2021-12-11 10:55 | XR_ITS ---
FINAL REPORT CLINICAL HISTORY: cough, covid 2 weeks ago COMPARISON: February 27, 2021 FINDINGS: Two views of the chest were obtained. The heart size and pulmonary vascularity are within normal limits. There is a moderate hiatal hernia. There is mild bibasilar opacity could represent atelectasis or pneumonia. There are bilateral upper lobe nodules there are new as compared to the prior exam. There is no pneumothorax. The bony thorax is intact. IMPRESSION: New bilateral upper lobe nodules. Recommend chest CT. Mild bibasilar opacities could represent atelectasis or pneumonia. Reviewed, Interpreted and Dictated by Andrae Hernández III, MD Transcribed by David Pierre Authenticated and [facility]
[2021-12-11 11:28] VITALS: BP 131/82; PULSE 76; RESP 17; TEMP 36.7; O2SAT 96; BMI 25.6
[2021-12-11 11:40] LABS: UTC Strep Screen (Rapid) Negative (Negative)
[2021-12-11 12:12] LABS: Basophils # 0.1 K/mm3 (0-0.2); Eosinophils # 0.2 K/mm3 (0.0-0.4); Eosinophils % 3.1 % (0.1-12.0); Hematocrit 46.9 % (37.0-47.0); Hemoglobin 14.8 g/dL (12.2-16.2); Lymphocytes # 1.6 K/mm3 (0.7-4.5); Lymphocytes % 24.4 % (10-50); Mean Corpuscular HGB Conc 31.6 g/dL (31.8-35.4); Mean Corpuscular Hemoglobin 30.7 pg (27.0-31.2); Mean Corpuscular Volume 97.2 fl (81-99); Mean Platelet Volume 8.5 fl (7.4-10.4); Monocytes # 0.4 K/mm3 (0.1-1.0); Monocytes % 6.7 % (1.7-9.3); Neutrophils # 4.3 K/mm3 (1.8-7.8); Neutrophils % 64.6 % (37.0-80.0); Platelet Count 359 K/mm3 (142-424); Red Blood Count 4.82 M/mm3 (4.20-5.40); Red Cell Distribution Width 13.9 % (11.5-17.5); White Blood Count 6.6 K/mm3 (4.8-10.8)
[2021-12-11 12:13] LABS: Chloride 100 mmol/L (98-107)
[2021-12-11 12:14] LABS: Potassium 5.3 mmoL/L (3.5-5.1); Sodium 136 mmol/L (136-145)
[2021-12-11 12:16] LABS: Blood Urea Nitrogen 28 mg/dl (7-17); Creatinine Clearance Estimated 45 mL/min (50-200); Estimated Glomerular Filt Rate 60 ml/min (>60); GFR (African American) 73 ML/MIN (>60)
[2021-12-11 12:17] LABS: Anion Gap 12.3 mEq/L (5-15); Calcium 10.3 mg/dl (8.4-10.2); Carbon Dioxide 29 mmol/L (22.0-30.0); Glucose 91 mg/dl (74-100)
--- NOTE | 2021-12-11 12:37 | HMH.EDUTC ---
[facility] Disposition Clinical Impression: Bronchitis Fatigue Qualifiers: Fatigue type: unspecified Qualified Code(s): R53.83 - Other fatigue Disposition: Home, Self-Care Condition on Discharge: Good Instructions: DI for Acute Bronchitis Additional Instructions: Drink plenty of fluids. Take tylenol or ibuprofen for pain or fever. Take the medications as directed. Follow up with your regular doctor. GO TO THE ER FOR ANY WORSENING SYMPTOMS Prescriptions: Benzonatate [Benzonatate 100mg cap] 100 mg PO TIDP PRN #30 cap PRN Reason: Cough Transmission Status: Received by [id number] methylPREDNISolone [Medrol] 4 mg PO DIRECTED 6 Days #21 packet Transmission Status: Received by [id number] Cefdinir [Omnicef 300mg Capsule] 300 mg PO BID #20 cap Transmission Status: Received by [id number] Referrals: Deshaun Dupree MD [Primary Care Provider] - Time of Disposition: 12:43 Medical Decision Making - Medical Records Medical records reviewed: No: I reviewed the patient's medical records. - Camilo Inquiry Pt receiving controlled substance: No Vital Signs: 12/11/21 11:28 Temperature 98.1 F Temperature Source Oral Pulse Rate [Left] 76 Respiratory Rate 17 Blood Pressure [Right Arm] 131/82 Blood Pressure Mean [Right Arm] 98 02 Sat by Pulse Oximetry 96 - Lab Data Lab Results 12/11/21 11:39: Strep Scn Rapid Clinic Negative 12/11/21 11:58: WBC 6.6, RBC 4.82, Hgb 14.8, Hct 46.9, MCV 97.2, MCH 30.7, MCHC 31.6 L, RDW 13.9, Plt Count 359, MPV 8.5, Neut % (Auto) 64.6, Lymph % (Auto) 24.4, [place] % (Auto) 6.7, Eos % (Auto) 3.1, Baso % (Auto) 1.0, Neut # (Auto) 4.3, Lymph # (Auto) 1.6, [place] # (Auto) 0.4, Eos # (Auto) 0.2, Baso # (Auto) 0.1 12/11/21 11:58: Sodium 136, Potassium 5.3 H, Chloride 100, Carbon Dioxide 29, Anion Gap 12.3, BUN 28 H, Creatinine 0.90, Estimated Creat Clear 45, Estimated GFR 60, Est GFR ( Amer) 73, Glucose 91, Calcium 10.3 H Result diagrams: 12/11/21 11:58 12/11/21 11:58 Orders (Tests/Meds): ORDERS Category Date Time Status Chest XR 2 view (NOT portable) [XR chest 2V] Stat Exams 12/11/21 10:55 Taken Covid-19 Nasal PCR ([facility]) Routine Lab 12/11/21 11:19 Received Strep Screen Confirmation Stat Micro 12/11/21 11:39 Received [facility] HPI - General Stated complaint: sore throat; sinus pain; cough; weakness Time Seen by Provider: 12/11/21 12:37 Mode of Arrival: Ambulatory Source of Information: Patient Limitations: No Limitations Description of Symptoms (Recalled from Triage Doc. by RN): patient comes in with complaints of continuing weakness and cough. patient tested positive for strep and covid on 11/28 HEENT Symptoms (Recalled from RN notes): No Resp Symptoms (Recalled from RN notes): Yes Skin Symptoms (Recalled from RN notes): No MS Symptoms (Recalled from RN notes): No Functional Status (Recalled from RN notes): n/a - History of Present Illness Provider Complaint: She states that for the past 2 weeks she has had cough and chest congestion. She had covid originally, but she states she got better from that. She denies chest pain. - Related Data Home Medications Medication Instructions Recorded Confirmed aspirin 81 mg tablet,delayed 81 mg PO DAILY 03/21/18 11/13/21 release cholecalciferol (vitamin D3) 25 1,000 unit PO DAILY 09/20/18 11/13/21 mcg (1,000 unit) capsule omeprazole 40 mg capsule,delayed 40 mg PO DAILY 90 Days #90 cap 09/20/18 11/13/21 release vitamin B complex 1 tab PO DAILY 09/20/18 11/13/21 Calcium Carbonate [Calcium] 1,000 mg PO DAILY 03/23/19 11/13/21 Spironolactone [Spironolactone 25 mg PO DAILY 06/01/20 11/13/21 25mg Tablet] fluticasone propionate 50 50 mcg INTRANASAL DAILY 06/17/20 11/13/21 mcg/actuation nasal spray,suspension pitavastatin calcium 4 mg tablet 4 mg PO DAILY 06/17/20 11/13/21 cetirizine 10 mg tablet 10 mg PO DAILY tab 08/23/20 11/13/21 azelastine 137 mcg (0.1 %) na
[2021-12-11 12:56] VITALS: BP 131/82; PULSE 76; RESP 17; TEMP 36.7
== END 2021-12-11 12:58 | disposition home or self-care (01) ==
PROVIDERS: Emergency Provider Nurse Practitioner Family; PCP Internal Medicine
DX: J40 Bronchitis, not specified as acute or chronic (principal); U07.1 COVID-19
CPT/HCPCS: 71046; 80048; 85025; 87880; 99212; C9803; G0463; U0003; U0005

== ENCOUNTER → 2021-12-19 11:35 | Outpatient (CLI) | payer MEDICARE, OTHER, SELFPAY | PROVIDERS: PCP Internal Medicine; Visit Provider Internal Medicine | DX: Z20.822 Contact with and (suspected) exposure to COVID-19 (principal) | CPT/HCPCS: C9803; U0003; U0005 ==

== ENCOUNTER → 2022-04-16 08:25 | Outpatient (CLI) | payer MEDICARE, OTHER, SELFPAY ==
--- NOTE | 2022-04-16 08:25 | MM_ITS ---
PROCEDURE INFORMATION: Exam: MG Bilateral Screening 3D Mammography Exam date and time: 04/16/2022 8:16 AM Age: 82 years old Clinical indication: Screening mammogram TECHNIQUE: Imaging protocol: Bilateral Screening tomosynthesis and 2D mammography including computer-aided detection (CAD) when performed. COMPARISON: 1. MG MM DIG SCREENING MAMM BI W/CAD 03/27/2021 1:07 PM 2. MG MM DIG SCREENING MAMM BI W/CAD 03/05/2020 4:05 PM 3. MG DMSB DIG MAMM-SCREEN CORDELL W/CAD 09/29/2016 9:07 AM 4. MG DMSB DIG MAMM-SCREEN CORDELL 08/26/2015 10:18 AM FINDINGS: MAMMOGRAPHY: Breast composition: There are scattered areas of fibroglandular density. Mass: Stable benign-appearing subcentimeter nodules are present in the bilateral breasts. No new or morphologically suspicious nodule has developed to suggest malignancy. Architectural distortion: No new or suspicious architectural distortion. Calcifications: No new or suspicious calcifications are present Asymmetric density: No new or suspicious asymmetric density is present Skin thickening: None. Axillary adenopathy: None. IMPRESSION: No mammographic evidence of malignancy. Recommend annual screening mammography unless otherwise clinically indicated. ASSESSMENT: BI-RADS category 2: Benign
== END ==
PROVIDERS: PCP Internal Medicine; Visit Provider Nurse Practitioner Obstetrics & Gynecology
DX: Z12.31 Encounter for screening mammogram for malignant neoplasm of breast (principal)
CPT/HCPCS: 77063; 77067

== ENCOUNTER → 2022-05-14 10:34 | Outpatient (POV) | payer MEDICARE, OTHER, SELFPAY ==
[2022-05-14 10:45] VITALS: BP 136/67; PULSE 74; RESP 18; O2SAT 98; BMI 25.2
--- NOTE | 2022-05-14 11:07 | EXP.PAIN.SOA ---
[facility] Pain Management SOAP Note Subjective:: Patient is a pleasant 82-year-old female who presents today for follow-up. We are currently treating the patient for sacroiliitis, left groin pain, trochanteric bursitis. Today the patient rates her pain a 4 out of 10. Patient states that her pain continues to be in her bilateral hips, low back and radiating down her bilateral lower extremities to her knees. Patient denies any new trauma or injury. Patient states that anytime that she frequently stands a lot she has significant pain. Patient states that she at this does typically happen around the holidays due to the increased activity. Patient states around [place] she did have sharp shooting pains that went from her low spine up to her cervical spine. Patient states that it has improved but yet she continues to experience significant pain. Last year patient was scheduled for imaging of her low back however she was currently on iron infusions and was unable to complete the imaging. Patient has had injections in the past that did provide significant improvement. Patient states she did recently have a steroid injection from her primary care provider that helped some. Patient does have a history of right-sided corner lock SI stabilization approximately 2 years ago. Patient states that this did make significant improvement in her symptoms at that time. Patient does take ibuprofen occasionally for her pain symptoms. Patient does state that she has a history of cardiac issues including a stent due to 100% blockage. Patient is not currently on any scheduled medications. Her Camilo is [phone]. Its been reviewed and appropriate. Review of Systems: General: No recent weight changes, no fever, no sleep disturbances Respiratory: No cough, no shortness of air, no recurring pulmonary infections Cardiovascular/peripheral vascular: No chest pain, no palpitations, no edema, no shortness of breath Gastrointestinal: No new onset incontinence, normal bowel movements reported Genitourinary: No new onset incontinence Musculoskeletal: Low back pain, bilateral leg pain Psychiatric: [Normal mood/affect] Neurological: [Denies weakness in extremities], [denies balance issues] Objective:: Physical Exam: General: Alert and oriented x3, no acute distress, pleasant and cooperative Lungs: Respirations even and unlabored, symmetrical chest expansion Eyes: PERRL Musculoskeletal: Flexion and extension of lumbar [spine] somewhat guarded secondary to pain, [antalgic gait noted] extreme point tenderness along bilateral SI's and positive bilateral Johanna's, Ana's, Gaenslen's, compression and distraction exam Neurological: Speech clear, no gross sensory deficit ORT score updated with low risk of 1 Assessment:: Bilateral sacroiliitis, bilateral hip pain, greater trochanteric bursitis, groin pain Plan:: Patient is experiencing significant pain in her low back with radiating symptoms into her bilateral lower extremities. Patient did have limited range of motion of her lumbar spine and extreme point tenderness along bilateral SI's as well as positive bilateral Johanna's, Ana's, Gaenslen's, compression and distraction exam. I have discussed with the patient that she may benefit from repeat diagnostic SI injections. Risk and benefits were discussed with the patient. She would like to proceed forward with this plan of care. I will also order the patient tizanidine 4 mg at bedtime and provide a 14-day supply of this medication. I will also order updated MRI imaging without contrast of her cervical, thoracic and lumbar spine. We will schedule her for bilateral SI injections. Patient has been instructed to contact the clinic with any concerns before the next appointment. Dr. Gastelum has reviewed this note and agrees with this plan of care. This note was dictated using voice recognition software and make contain errors or omissions. [facility] Disclaimer: The information contained in this sec
== END | disposition home or self-care (01) ==
PROVIDERS: PCP Internal Medicine; Visit Provider Nurse Practitioner Family
DX: M46.1 Sacroiliitis, not elsewhere classified (principal); M70.60 Trochanteric bursitis, unspecified hip; M25.551 Pain in right hip; M25.552 Pain in left hip; R10.30 Lower abdominal pain, unspecified
CPT/HCPCS: 99212; G0463

== ENCOUNTER → 2022-05-20 09:47 | Outpatient (CLI) | payer MEDICARE, OTHER, SELFPAY ==
--- NOTE | 2022-05-20 09:55 | MR_ITS ---
FINAL REPORT CLINICAL HISTORY: lower back pain COMPARISON: 01/08/2020 FINDINGS: Multiplanar MR imaging of the lumbar spine was performed without contrast. On the sagittal T2-weighted images, disc degeneration is seen at multiple levels. The vertebral alignment is normal. There are chronic L2 and L3 compression fractures with changes of kyphoplasty, stable from previous. There is a mild acute T11 compression fracture. Findings new since previous. The conus has an unremarkable appearance. T12-L1: An annular bulge is present. Facet arthropathy and osteophytes are present. There is mild bilateral neural foraminal narrowing. L1-2: An annular bulge is present. Facet arthropathy and osteophytes are present. There is mild bilateral neural foraminal narrowing. L2-3: An annular bulge and facet arthropathy are present. There is mild bilateral neural foraminal narrowing. L3-4: An annular bulge is present. Facet arthropathy and osteophytes are present. There is mild bilateral neural foraminal narrowing. L4-5: An annular bulge and facet arthropathy are present. There is mild bilateral neural foraminal narrowing. L5-S1: Facet arthropathy is present. There is no significant canal stenosis or neural foraminal narrowing. IMPRESSION: Mild acute T11 compression fracture, new since previous. Multilevel degenerative disc disease and spondylosis. Chronic compression fractures with changes of kyphoplasty, stable. Reviewed, Interpreted and Dictated by Andrae Hernández III, MD Transcribed by Martina Avila Authenticated and [facility]
--- NOTE | 2022-05-20 09:55 | MR_ITS ---
FINAL REPORT CLINICAL HISTORY: .BACK PAIN FINDINGS: Multiplanar MR imaging of the thoracic spine was performed without contrast. On the sagittal T2-weighted images, disc degeneration is seen at multiple levels. There is a mild acute T11 compression fracture with about 20% loss of height. No other fracture is identified. The vertebral alignment is normal. The thoracic spinal cord has an unremarkable appearance without evidence of mass, edema or syrinx. There is no evidence of significant canal stenosis or cord compression. On the axial images, there are annular bulges at multiple levels with small anterior osteophytes. There is a small central T11-12 disc protrusion. There is no evidence of significant canal stenosis or cord compression. No paraspinous soft tissue abnormality is identified. Note is made of a large hiatal hernia. IMPRESSION: Mild acute T11 compression fracture. Degenerative changes as above. Reviewed, Interpreted and Dictated by Andrae Hernández III, MD Transcribed by oCri Luz Authenticated and [facility]
--- NOTE | 2022-05-20 09:55 | MR_ITS ---
FINAL REPORT CLINICAL HISTORY: BACK PAIN COMPARISON: None FINDINGS: Multiplanar MR imaging of the cervical spine was performed without contrast. On the sagittal T2-weighted images, disc degeneration is seen throughout. There is no evidence of fracture. The vertebral alignment is normal. The cervical spinal cord has an unremarkable appearance without evidence of mass, edema or syrinx. The cervicomedullary junction is normal. C2-3: There is no significant canal stenosis or neural foraminal narrowing. C3-4: Disc osteophyte complex. There is no significant canal stenosis or neural foraminal narrowing. C4-5: Small bilateral uncovertebral osteophytes. No significant neural foraminal narrowing. C5-6: Annular disc bulge. There is no significant canal stenosis or neural foraminal narrowing. C6-7: There is no significant canal stenosis or neural foraminal narrowing. C7-T1: There is no significant canal stenosis or neural foraminal narrowing. IMPRESSION: Multilevel mild degenerative disc disease with spondylosis. No disc protrusion or canal stenosis. Reviewed, Interpreted and Dictated by Andrae Hernández III, MD Transcribed by Hannah Harry Authenticated and [facility]
== END ==
PROVIDERS: PCP Internal Medicine; Visit Provider Nurse Practitioner Family
DX: M54.2 Cervicalgia (principal); M54.6 Pain in thoracic spine; M54.50 Low back pain, unspecified
CPT/HCPCS: 72141; 72146; 72148; 76376

== ENCOUNTER → 2022-05-22 09:44 | Outpatient (POV) | payer MEDICARE, OTHER, SELFPAY ==
--- NOTE | 2022-05-22 10:29 | EXP.PAIN.SOA ---
[facility] Pain Management SOAP Note Subjective:: Patient is a pleasant 82-year-old female who presents today for follow-up of MRI imaging. We are currently treating the patient for low back pain, mid back pain, sacroiliitis, left groin pain, trochanteric bursitis. Today she rates her pain a 3 out of 10. From her last visit she still continues to states she has increased pain at her mid back location with radiating symptoms into her upper back as well as her low back. Patient denies any new trauma or injury. Patient does state this is an aching, throbbing sensation that is worse with increased activity. Patient also states she continues to have extensive pains into her bilateral hips. Patient does states she has a significant history of osteoporosis. Patient also has a history of 2 kyphoplasty procedures in the past due to compression fractures related to falls. Patient denies any recent bone density scans and states she only takes a daily calcium/vitamin D medication. Patient has a history of cardiac issues and has had a stent placed in the past. Patient is not on any scheduled medications currently. Her Camilo is [phone]. Its been reviewed and appropriate. Review of Systems: General: No recent weight changes, no fever, no sleep disturbances Respiratory: No cough, no shortness of air, no recurring pulmonary infections Cardiovascular/peripheral vascular: No chest pain, no palpitations, no edema, no shortness of breath Gastrointestinal: No new onset incontinence, normal bowel movements reported Genitourinary: No new onset incontinence Musculoskeletal: Mid back pain, bilateral hip pain Psychiatric: [Normal mood/affect] Neurological: [Denies weakness in extremities], [denies balance issues] Objective:: Physical Exam: General: Alert and oriented x3, no acute distress, pleasant and cooperative Lungs: Respirations even and unlabored, symmetrical chest expansion Eyes: PERRL Musculoskeletal: Flexion and extension of thoracic, lumbar [spine] somewhat guarded secondary to pain, [antalgic gait noted] Neurological: Speech clear, no gross sensory deficit FINAL REPORT FINDINGS: Multiplanar MR imaging of the cervical spine was performed without contrast. ? On the sagittal T2-weighted images, disc degeneration is seen throughout.? There is no evidence of fracture.? The vertebral alignment is normal. The cervical spinal cord has an unremarkable appearance without evidence of mass, edema or syrinx. ? The cervicomedullary junction is normal.? ? C2-3:? There is no significant canal stenosis or neural foraminal narrowing.? C3-4:? Disc osteophyte complex. There is no significant canal stenosis or neural foraminal narrowing.? C4-5:? Small bilateral uncovertebral osteophytes. No significant neural foraminal narrowing.? ? C5-6:? Annular disc bulge. ? There is no significant canal stenosis or neural foraminal narrowing.? C6-7:? There is no significant canal stenosis or neural foraminal narrowing.? C7-T1:? There is no significant canal stenosis or neural foraminal narrowing. IMPRESSION: Multilevel mild degenerative disc disease with spondylosis.? No disc protrusion or canal stenosis. Reviewed, Interpreted and Dictated by Andrae Hernández III, MD Transcribed by Hannah Harry Authenticated and [facility] CLINICAL HISTORY: .BACK PAIN FINDINGS: Multiplanar MR imaging of the thoracic spine was performed without contrast. On the sagittal T2-weighted images, disc degeneration is seen at multiple levels.? There is a mild acute T11 compression fracture with about 20% loss of height.? No other fracture is identified. ? The vertebral alignment is normal. The thoracic spinal cord has an unremarkable appearance without evidence of mass, edema or syrinx. There is no evidence of significant canal stenosis or cord compression.? On the axial images, there are annular bulges at multiple levels with
[2022-05-22 10:37] VITALS: BP 139/73; PULSE 67; RESP 18; O2SAT 98; BMI 25.2
== END ==
PROVIDERS: PCP Internal Medicine; Visit Provider Nurse Practitioner Family
DX: M46.1 Sacroiliitis, not elsewhere classified (principal); M70.60 Trochanteric bursitis, unspecified hip; M25.551 Pain in right hip; M25.552 Pain in left hip; S22.089A Unspecified fracture of T11-T12 vertebra, initial encounter for closed fracture
CPT/HCPCS: 99212; G0463

== ENCOUNTER 2022-05-26 08:39 | Day surgery (SDC) | payer MEDICARE, OTHER, SELFPAY ==
[2022-05-26 08:49] VITALS: BP 135/79; PULSE 74; RESP 18; TEMP 36.3; O2SAT 98; BMI 25.2
[2022-05-26 09:11] VITALS: BP 132/90; PULSE 84; RESP 18; O2SAT 98
[2022-05-26 09:13] VITALS: BP 132/90; PULSE 84; RESP 18; O2SAT 98
[2022-05-26 09:21] VITALS: BP 141/78; PULSE 71; RESP 18; O2SAT 97
--- NOTE | 2022-05-26 09:26 | P.PCN_ITS ---
Procedure Date: 05/26/22 Time: 09:15 Anesthesiologist:: Harsh Merchant CRNA Complications:: None Pre-procedure Diagnosis:: Bilateral sacroiliitis Post-procedure Diagnosis:: Same Indications for Procedure:: Patient is a very pleasant 82-year-old female comes our clinic today for therapeutic bilateral sacroiliac joint injection. Patient has had this in the past with significant improvement. She complains of low lumbar pain off the midline bilaterally. Upon examination she has extreme point tenderness over the bilateral sacroiliac joints. She rates her pain 8/10. Procedure Details:: Procedure: Bilateral sacroiliac joint injections under fluoroscopy Informed consent was obtained and the risks and benefits of the procedure were explained to the patient.~ The patient was taken to the procedure room and noninvasive monitors were placed including a noninvasive blood pressure cuff and pulse oximeter.~ The patient was placed prone on the procedure table. Both hips were cleansed using Betadine as a cleansing solution. C-arm fluoroscopy was used to view the right sacroiliac joint.~ The skin and subcutaneous tissues were anesthetized using lidocaine 1.5% and a 25-gauge needle.~ After this, a 22-gauge spinal needle was inserted under fluoroscopic guidance into the inferior aspect of the right sacroiliac joint.~ Omnipaque dye was injected and good spread was seen throughout the joint.~ After this, approximately 5 mL of bupivacaine, 0.25% and Depo-Medrol, 40 mg was incrementally injected into the right sacroiliac joint. We then moved to the left sacroiliac joint.~ The skin and subcutaneous tissues were anesthetized using lidocaine 1.5% and a 25-gauge needle.~ After this, a 22- gauge spinal needle was inserted under fluoroscopic guidance into the inferior aspect of the left sacroiliac joint.~ Omnipaque dye was injected and good spread was seen throughout the joint. After this, approximately 5 mL of bupivacaine, 0.25% and Depo-Medrol, 40 mg was incrementally injected into the left sacroiliac joint.~ The patient tolerated the procedure well with no complications. The patient was observed in the Pain Clinic and then was discharged home neurologically intact. Plan and Disposition:: Patient was discharged without incident
== END 2022-05-26 09:21 | disposition home or self-care (01) ==
PROVIDERS: PCP Internal Medicine; Visit Provider Nurse Anesthetist, Certified Registered
DX: M46.1 Sacroiliitis, not elsewhere classified (principal)
CPT/HCPCS: 27096; G0260; J1040

== ENCOUNTER → 2022-06-01 08:52 | Outpatient (CLI) | payer MEDICARE, OTHER, SELFPAY ==
--- NOTE | 2022-06-01 09:16 | XR_ITS ---
FINAL REPORT TECHNIQUE: Bone densitometry calculations of the lumbar spine and left hip were obtained. CLINICAL HISTORY: bilat hip pain FINDINGS: Using distal 3rd, the bone mineral density of the forearm is 0.341 g/cm2, corresponding to T-score of -5.9. Using the left hip, the bone mineral density of the femoral neck is 0.666 g/cm2, corresponding to a T-score of -1.6. NOTE: T-score: Standard deviation compared with peak bone mass of young adult mean. *Following the recommendations of the International Society of Bone densitometry, classification of hip BMD is based on the lower of two T-scores; total hip or femoral neck. IMPRESSION: Osteoporosis of the distal right forearm. Osteopenia of the left hip. Reviewed, Interpreted and Dictated by Malena Andrew MD Transcribed by Deidra Charles Authenticated and [facility]
== END ==
PROVIDERS: PCP Internal Medicine; Visit Provider Nurse Practitioner Family
DX: Z78.0 Asymptomatic menopausal state (principal); M25.552 Pain in left hip; M25.551 Pain in right hip
CPT/HCPCS: 77080

== ENCOUNTER 2022-06-06 08:12 | Emergency (ER) | payer MEDICARE, OTHER, SELFPAY ==
--- NOTE | 2022-06-06 08:15 | EXP.UTC ---
Discharge Plan Disposition Patient Disposition: Home, Self-Care Condition: Good Prescriptions Prescriptions: New fluconazole [Diflucan] 100 mg tablet 100 mg PO DAILY 3 Days Qty: 3 0RF nystatin 100,000 unit/gram cream 1 applic topical TID 14 Days Qty: 30 0RF Rx Instructions: Apply methylprednisolone 4 mg Tablets,Dose Pack 4 mg PO DIRECTED Qty: 21 0RF No Action aspirin [Adult Low Dose Aspirin] 81 mg tablet,delayed release (DR/EC) 81 mg PO DAILY omeprazole 40 mg capsule,delayed release(DR/EC) 40 mg PO DAILY 90 Days Qty: 90 vitamin B complex Tablet 1 tab PO DAILY cholecalciferol (vitamin D3) 1,000 unit capsule 1,000 unit PO DAILY Livalo 4 mg tablet 4 mg PO DAILY fluticasone propionate 50 mcg/actuation spray,suspension 50 mcg INTRANASAL DAILY Label Comments: USE 1 TO 2 SPRAY(S) IN EACH NOSTRIL ONCE DAILY azelastine 137 mcg (0.1 %) aerosol,spray 137 mcg INTRANASAL NEEDED PRN (Reason: allergies) Label Comments: USE 2 SPRAY(S) IN EACH NOSTRIL TWICE DAILY ipratropium-albuterol 0.5 mg-3 mg(2.5 mg base)/3 mL solution for nebulization 3 ml INHALATION Q6H PRN (Reason: shortness of breath or wheezing) Qty: 180 12RF albuterol sulfate 90 mcg/actuation HFA aerosol inhaler 1 inh INHALATION QID PRN (Reason: shortness of breath or wheezing) Qty: 8.5 12RF cetirizine 10 mg tablet 10 mg PO DAILY Label Comments: TAKE 1 TABLET BY MOUTH ONCE DAILY estradiol 0.01 % (0.1 mg/gram) cream 0.5 g VAGINAL .Twice Weekly Qty: 42.5 0RF Rx Instructions: Blueberry Size twice weekly spironolactone 25 MG tablet 25 mg PO DAILY sertraline 100 MG tablet 100 mg PO DAILY tizanidine [Zanaflex] 4 mg tablet 4 mg PO HS calcium carbonate 500 MG tablet,chewable 1,000 mg PO DAILY Referrals Follow up/Referrals: Deshaun Dupree MD [Primary Care Provider] - See instructions Activity Restrictions/Add. Instructions Additional Instructions/Restrictions: Apply the nystatin cream to the area under your breast and in the folds of your skin that are irritated. Take the diflucan oral medication as directed. Continue to take the benedryl as you have been. Try to take it every 6 hours regularly for the next few days. Follow up with your regular doctor. GO TO THE ER FOR ANY WORSENING SYMPTOMS OR CONCERNS Clinical Impressions Clinical Impression: Kendal infection Instructions Patient Instructions: Fluconazole, Yeast Infection-Skin, Nystatin Topical Discharge ED Provider: Joseph Mccormick [facility] General Stated complaint: Rash Time Seen by Provider: 06/06/22 08:15 History of Present Illness Provider Complaint: She states that for the past 5 days she has had a rash beneath her breast and the folds of her skin beneath her abdomen. She has now began to have generalized itching in addition to the rash beneath her breasts. Related Data Home Medications Medication Instructions Recorded Confirmed aspirin 81 mg tablet,delayed 81 mg PO DAILY antiplatelet 03/21/18 06/06/22 release (Adult Low Dose Aspirin) cholecalciferol (vitamin D3) 25 1,000 unit PO DAILY Supplement 09/20/18 06/06/22 mcg (1,000 unit) capsule omeprazole 40 mg capsule,delayed 40 mg PO DAILY STOMACH 90 days #90 09/20/18 06/06/22 release caps vitamin B complex 1 tab PO DAILY Supplement 09/20/18 06/06/22 calcium carbonate 500 mg calcium 1,000 mg PO DAILY Supplement 03/23/19 06/06/22 (1,250 mg) chewable tablet spironolactone 25 mg tablet 25 mg PO DAILY blood pressure 06/01/20 06/06/22 fluticasone propionate 50 50 mcg intranasal DAILY allergies 06/17/20 05/26/22 mcg/actuation nasal spray,suspension pitavastatin calcium 4 mg tablet 4 mg PO DAILY Cholesterol 06/17/20 06/06/22 (Livalo) cetirizine 10 mg tablet 10 mg PO DAILY allergies 08/23/20 06/06/22 azelastine 137 mcg (0.1 %) nasal 137 mcg intranasal NEEDED PRN 09/05/20
[2022-06-06 08:30] VITALS: BP 152/77; PULSE 66; RESP 20; TEMP 36.3; O2SAT 97; BMI 25.2
[2022-06-06 09:13] VITALS: BP 152/77; PULSE 66; RESP 20; TEMP 36.3; O2SAT 97
== END 2022-06-06 09:12 | disposition home or self-care (01) ==
PROVIDERS: Emergency Provider Nurse Practitioner Family; PCP Internal Medicine
DX: B37.2 Candidiasis of skin and nail
CPT/HCPCS: 99212; G0463

== ENCOUNTER → 2022-06-08 09:36 | Outpatient (POV) | payer MEDICARE, OTHER, SELFPAY ==
[2022-06-08 10:45] VITALS: BP 131/68; PULSE 64; RESP 18; O2SAT 99; BMI 25.2
--- NOTE | 2022-06-08 13:29 | EXP.PAIN.SOA ---
[facility] Pain Management SOAP Note Subjective:: Patient is a pleasant 82-year-old female who presents today for follow-up of bilateral SI injections on 05/26/2022. 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 Today she states she has had at least 50% improvement following these injections and feels like they are still providing additional relief. Patient states she has no additional pain now in her left hip however she states she continues to have some right hip pain. Patient does describe this as a catching sensation with certain movements. She does rate her pain a 2 out of 10. Patient denies any new trauma. Patient denies any change location or type of pain she experiences. Patient states she has recently had a rash that started under her bilateral breasts and then progressively moved to her chest and arms. Patient was seen at the [facility] clinic and was prescribed fluconazole, nystatin and steroids. Patient states that they were thinking she had Kendal. Patient states that she did initially broke out with the itching 2 days before. Patient was prescribed a new medication of muscle relaxer a few weeks ago and she states that she was wondering if this could have been the issue. Patient states she frequently has delayed reactions to medications. Patient states she did stop taking the tizanidine 4 mg at bedtime. Patient is scheduled for a kyphoplasty of T11 tomorrow at the [facility] location. Patient's Camilo is [phone]. Its been reviewed and appropriate. Review of Systems: General: No recent weight changes, no fever, no sleep disturbances Respiratory: No cough, no shortness of air, no recurring pulmonary infections Cardiovascular/peripheral vascular: No chest pain, no palpitations, no edema, no shortness of breath Gastrointestinal: No new onset incontinence, normal bowel movements reported Genitourinary: No new onset incontinence Musculoskeletal: Right hip pain Psychiatric: [Normal mood/affect] Neurological: [Denies weakness in extremities], [denies balance issues] Objective:: Physical Exam: General: Alert and oriented x3, no acute distress, pleasant and cooperative Lungs: Respirations even and unlabored, symmetrical chest expansion Eyes: PERRL Musculoskeletal: Flexion and extension of lumbar [spine] somewhat guarded secondary to pain, [antalgic gait noted] Neurological: Speech clear, no gross sensory deficit Assessment:: Low back pain, mid back pain, sacroiliitis, left groin pain, greater trochanteric bursitis, bilateral hip pain, acute compression fracture at T11, 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 Patient also has pain at her mid back related to a compression fracture that she is scheduled for a kyphoplasty tomorrow. I did review over the patient's findings from her recent DEXA scan. Patient did have a right forearm with a T score of -5.9 and a left hip T score of -1.6. Patient does show osteoporosis and osteopenia results. I have counseled the patient that she does need to contact her primary care doctor and discuss about being put on something daily and or monthly such as a injection to help prevent/slow further deterioration. Patient will follow-up in office following her kyphoplasty procedure in 1 week. Patient has been instructed to contact the clinic with any concerns before the next appointment. Dr. Gastelum has reviewed this note and agrees with this plan of care. This note was dictated using voice recognition software and make contain errors or omissions. [facility] Disclaimer: The inform
== END ==
PROVIDERS: PCP Internal Medicine; Visit Provider Nurse Practitioner Family
DX: M51.16 Intervertebral disc disorders with radiculopathy, lumbar region (principal); M51.34 Other intervertebral disc degeneration, thoracic region; M46.1 Sacroiliitis, not elsewhere classified; R10.32 Left lower quadrant pain; M70.60 Trochanteric bursitis, unspecified hip; M25.551 Pain in right hip; M25.552 Pain in left hip
CPT/HCPCS: 99212; G0463

== ENCOUNTER 2022-06-16 09:47 | Emergency (ER) | payer MEDICARE, OTHER, SELFPAY ==
[2022-06-16 09:48] VITALS: BP 124/72; PULSE 72; RESP 18; TEMP 36.6; O2SAT 96; BMI 25.2
[2022-06-16 10:27] LABS: Basophils # 0.1 K/mm3 (0-0.2); Basophils % 0.3 % (0.1-2.0); Eosinophils # 0.1 K/mm3 (0.0-0.4); Eosinophils % 0.5 % (0.1-12.0); Hematocrit 44.9 % (37.0-47.0); Hemoglobin 14.6 g/dL (12.2-16.2); Lymphocytes # 1.6 K/mm3 (0.7-4.5); Lymphocytes % 10.8 % (10-50); Mean Corpuscular HGB Conc 32.6 g/dL (31.8-35.4); Mean Corpuscular Hemoglobin 30.9 pg (27.0-31.2); Mean Corpuscular Volume 94.7 fl (81-99); Mean Platelet Volume 7.9 fl (7.4-10.4); Monocytes # 0.7 K/mm3 (0.1-1.0); Monocytes % 4.7 % (1.7-9.3); Neutrophils # 12.1 K/mm3 (1.8-7.8); Neutrophils % 83.6 % (37.0-80.0); Platelet Count 256 K/mm3 (142-424); Red Blood Count 4.74 M/mm3 (4.20-5.40); Red Cell Distribution Width 14.2 % (11.5-17.5); White Blood Count 14.5 K/mm3 (4.8-10.8)
[2022-06-16 10:31] VITALS: BP 141/74; PULSE 65; O2SAT 96
--- NOTE | 2022-06-16 10:41 | PC.NURSE ---
AKBAR MALIK at for pt ajal
[2022-06-16 10:46] LABS: Chloride 104 mmol/L (98-107); Potassium 4.6 mmoL/L (3.5-5.1); Sodium 133 mmol/L (136-145)
--- NOTE | 2022-06-16 10:48 | HMH.EDGENADL ---
Discharge Plan Disposition Patient Disposition: Home, Self-Care Condition: Good Prescriptions Prescriptions: New methylprednisolone [Medrol] 4 mg tablet 4 mg PO DAILY Qty: 30 0RF hydroxyzine HCl 25 mg tablet 25 mg PO Q6H PRN (Reason: itching) Qty: 20 0RF No Action aspirin [Adult Low Dose Aspirin] 81 mg tablet,delayed release (DR/EC) 81 mg PO DAILY omeprazole 40 mg capsule,delayed release(DR/EC) 40 mg PO DAILY 90 Days Qty: 90 vitamin B complex Tablet 1 tab PO DAILY cholecalciferol (vitamin D3) 1,000 unit capsule 1,000 unit PO DAILY Livalo 4 mg tablet 4 mg PO DAILY fluticasone propionate 50 mcg/actuation spray,suspension 50 mcg INTRANASAL DAILY Label Comments: USE 1 TO 2 SPRAY(S) IN EACH NOSTRIL ONCE DAILY azelastine 137 mcg (0.1 %) aerosol,spray 137 mcg INTRANASAL NEEDED PRN (Reason: allergies) Label Comments: USE 2 SPRAY(S) IN EACH NOSTRIL TWICE DAILY ipratropium-albuterol 0.5 mg-3 mg(2.5 mg base)/3 mL solution for nebulization 3 ml INHALATION Q6H PRN (Reason: shortness of breath or wheezing) Qty: 180 12RF albuterol sulfate 90 mcg/actuation HFA aerosol inhaler 1 inh INHALATION QID PRN (Reason: shortness of breath or wheezing) Qty: 8.5 12RF cetirizine 10 mg tablet 10 mg PO DAILY Label Comments: TAKE 1 TABLET BY MOUTH ONCE DAILY estradiol 0.01 % (0.1 mg/gram) cream 0.5 g VAGINAL .Twice Weekly Qty: 42.5 0RF Rx Instructions: Blueberry Size twice weekly spironolactone 25 MG tablet 25 mg PO DAILY sertraline 100 MG tablet 100 mg PO DAILY tizanidine [Zanaflex] 4 mg tablet 4 mg PO HS fluconazole [Diflucan] 100 mg tablet 100 mg PO DAILY nystatin 100,000 unit/gram cream 1 applic topical TID Rx Instructions: Apply methylprednisolone 4 mg tablets,dose pack 4 mg PO DIRECTED calcium carbonate 500 MG tablet,chewable 1,000 mg PO DAILY Referrals Follow up/Referrals: Deshaun Dupree MD [Primary Care Provider] - See instructions Activity Restrictions/Add. Instructions Additional Instructions/Restrictions: Medrol Dosepak as prescribed. Hydroxyzine instead of Benadryl as needed for itching. Follow-up with your ed educational aide, Dr. Dye, call for appointment. Clinical Impressions Clinical Impression: Rash Instructions Patient Instructions: DI for Rash Discharge ED Provider: Ron Whitaker General Adult HPI General Chief complaint: Skin/Abscess/Foreign Body Stated complaint: rash on back, waist, stomach Time Seen by Provider: 06/16/22 10:38 Mode of Arrival: Ambulatory Source of Information: Patient Limitations: No Limitations Description of Symptoms (Recalled from ER Triage Doc. by RN): c/o rash t/o torso,legs and itching all over her body for 2 weeks. Has had 2 doses of steroid shots with improvement but comes back. History of Present Illness HPI narrative: Complaints of a rash and generalized pruritus for 2 weeks. She has been seen here at the urgent treatment center and was treated for a yeast infection . She was on Diflucan and nystatin, also treated with a Medrol Dosepak. She has seen her primary care provider twice and gotten 2 steroid injections and steroid cream. She last saw Dr. Dupree, her PCP, yesterday and got a steroid injection. She says that she has been out of her steroid pack for 2 days. She says initially she got better but Wednesday she flared up again. She has been taking Benadryl for itching, but continues to itch all over her body. She does have a ed educational aide, Dr. Dye, but has not seen her for this problem. She also has chronic back pain. She sees Dr. Gastelum for pain management. She says she recently has been having a lot of thoracic back pain and received [address] Gastelum. She says he also put her on a muscle relaxer and shortly after is when she broke out with a rash. She therefore stopped taking that m
[2022-06-16 10:49] LABS: Alanine Aminotransferase 56 U/L (12-78); Albumin Level 3.8 g/dl (3.5-5.0); Albumin/Globulin Ratio 1.4 (1.1-1.8); Alkaline Phosphatase 85 U/L (38-126); Anion Gap 9.6 mEq/L (5-15); Aspartate Amino Transferase 44 U/L (14-36); Bilirubin,Total 0.4 mg/dl (0.2-1.3); Blood Urea Nitrogen 32 mg/dl (7-17); Carbon Dioxide 24 mmol/L (22.0-30.0); Creatinine Clearance Estimated 44 mL/min (50-200); Estimated Glomerular Filt Rate 60 ml/min (>60); GFR (African American) 73 ML/MIN (>60); Globulin 2.7 g/dL (1.3-3.2); Total Protein,Serum 6.5 g/dl (6.3-8.2)
[2022-06-16 10:50] LABS: Calcium 8.7 mg/dl (8.4-10.2); Glucose 97 mg/dl (74-100)
[2022-06-16 11:00] VITALS: BP 134/68; PULSE 70; O2SAT 95
[2022-06-16 11:17] VITALS: BP 140/65; PULSE 65; O2SAT 96
[2022-06-16 11:26] VITALS: BP 140/65; PULSE 63; RESP 16; TEMP 36.7
== END 2022-06-16 11:29 | disposition home or self-care (01) ==
PROVIDERS: Emergency Provider Emergency Medicine; PCP Internal Medicine
DX: R21 Rash and other nonspecific skin eruption (principal); I25.10 Atherosclerotic heart disease of native coronary artery without angina pectoris; Z86.79 Personal history of other diseases of the circulatory system; J44.9 Chronic obstructive pulmonary disease, unspecified; Z95.828 Presence of other vascular implants and grafts
CPT/HCPCS: 80053; 85025; 96374; 96375; 99284

== ENCOUNTER → 2022-07-02 07:58 | Outpatient (CLI) | payer MEDICARE, OTHER, SELFPAY ==
[2022-07-02 08:41] LABS: Basophils # 0.1 K/mm3 (0-0.2); Basophils % 1.2 % (0.1-2.0); Eosinophils # 0.4 K/mm3 (0.0-0.4); Eosinophils % 5.1 % (0.1-12.0); Hematocrit 46.7 % (37.0-47.0); Hemoglobin 14.3 g/dL (12.2-16.2); Lymphocytes % 28.4 % (10-50); Mean Corpuscular HGB Conc 30.7 g/dL (31.8-35.4); Mean Corpuscular Hemoglobin 30.8 pg (27.0-31.2); Mean Corpuscular Volume 100.3 fl (81-99); Mean Platelet Volume 7.7 fl (7.4-10.4); Monocytes # 0.4 K/mm3 (0.1-1.0); Monocytes % 6.3 % (1.7-9.3); Neutrophils # 4.1 K/mm3 (1.8-7.8); Neutrophils % 58.9 % (37.0-80.0); Platelet Count 236 K/mm3 (142-424); Red Blood Count 4.66 M/mm3 (4.20-5.40); Red Cell Distribution Width 14.8 % (11.5-17.5); White Blood Count 6.9 K/mm3 (4.8-10.8)
[2022-07-02 09:04] LABS: Anion Gap 2.7 mEq/L (5-15); Blood Urea Nitrogen 23 mg/dl (7-17); Calcium 8.9 mg/dl (8.4-10.2); Carbon Dioxide 31 mmol/L (22.0-30.0); Chloride 105 mmol/L (98-107); Estimated Glomerular Filt Rate 60 ml/min (>60); GFR (African American) 73 ML/MIN (>60); Glucose 79 mg/dl (74-100); Potassium 4.7 mmoL/L (3.5-5.1); Sodium 134 mmol/L (136-145)
== END ==
PROVIDERS: PCP Internal Medicine; Visit Provider Anesthesiology
DX: Z01.812 Encounter for preprocedural laboratory examination (principal); S22.080A Wedge compression fracture of T11-T12 vertebra, initial encounter for closed fracture
CPT/HCPCS: 36415; 80048; 85025

== ENCOUNTER 2022-07-03 06:43 | Day surgery (SDC) | payer MEDICARE, OTHER, SELFPAY ==
--- NOTE | 2022-06-16 14:08 | SUR.PREOP ---
Called pt to do pre-op call and pt wants to reschedule D/T illness. Pain management staff notified.
[2022-07-03 07:31] VITALS: BP 125/67; PULSE 68; RESP 17; TEMP 36.6; O2SAT 99; BMI 25.2
--- NOTE | 2022-07-03 09:25 | EXP.ANES.CKL ---
[facility] Disclaimer: The information contained in this section may have been updated after the patient was seen, as this information can be updated by other users. Medical History Abnormal EKG Asthma CAD (coronary artery disease) Dyspnea History of anemia History of gastroesophageal reflux (GERD) Osteoarthritis Surgical History H/O bilateral oophorectomy H/O cataract extraction History of hemiarthroplasty of left shoulder History of kyphoplasty Hx of appendectomy Presence of stent in coronary artery Family History Other Family history of DVT Family history of acute heart failure Family history of cancer Family history of hypertension Family history of myocardial infarction Social History Smoking Status: Never smoker second hand exposure: No alcohol intake: never substance use type: denies use current occupational status: retired Travel in the last 8 weeks: None household members: none housing: house current occupational exposures/hazards: No caffeine: Yes [facility] Anesthesia Checklist Patient Identification Patient Identification: Arm Band and Verbal (Name & ) Structural Data Admitted From: Home Planned Operative Procedure/s: Kyphoplasty Consent for Planned Operative Procedure(s) Verified: Yes NPO Status Verified Time NPO: 00:00 Additional verifications Anesthesia Reactions: No Hx Blood Transfusions: No Blood Transfusion Reaction: No Airway Assessment C-Spine Mobility Assessed: Yes TMJ Mobility Assessed: Yes Dentition: Good Dentition Neurological Assessment Level of Consciousness: Awake Hx Seizures: No Numbness or tingling in extremities: No Anesthesia Plan Anesthesia Risk discussed: Yes Anesthesia Plan: Verified ASA Class: III Anesthesia Type: MAC
[2022-07-03 10:26] VITALS: TEMP 43
[2022-07-03 11:00] VITALS: BP 97/50; PULSE 93; RESP 14; TEMP 36.9; O2SAT 93
[2022-07-03 11:10] VITALS: BP 121/79; PULSE 93; RESP 16; O2SAT 94
[2022-07-03 11:20] VITALS: BP 121/79; PULSE 92; RESP 16; O2SAT 95
[2022-07-03 11:30] VITALS: BP 122/63; PULSE 92; RESP 17; TEMP 36.3; O2SAT 94
--- NOTE | 2022-07-03 15:18 | P.OP_ITS ---
Date of procedure: 07/03/22 Pre-op Diagnosis:: T11 compression fracture with age-related osteoporosis Post-op Diagnosis:: Same Procedure performed:: T11 kyphoplasty Surgeon:: Delon Gastelum MD VASCULAR TECHNOLOGIST SONOGRAPHER:: Megan Roblero Anesthesia: MAC Estimated blood loss (mL): 5 Clinical Note:: This patient is a pleasant 82-year-old white female with an acute T11 compression fracture. The patient does have age-related osteoporosis with a DEXA scan indicating severe osteoporosis. She does have other multiple compression fractures. She does have a brace on she has failed all other conservative treatments. She presents for T11 kyphoplasty today. Operative findings:: None Operative note:: Informed consent was obtained and risks and benefits of the procedure was explained to the patient. Patient was taken to the OR and was placed prone on the procedure table. The patient was prepped and draped in sterile fashion. I used 2 C arms for AP and lateral view of the T11 vertebral body. The skin and subcutaneous tissues were anesthetized using lidocaine. Bone access trochars were placed through the LEFT and RIGHT pedicle and advanced into the vertebral body. After accessing the vertebral body a balloon was inserted first on the LEFT side followed by the RIGHT side with approximately 3 mL of contrast placed in each balloon with good insufflation. After adequate spread of contrast through the balloon, the balloons were deflated and cement was introduced first on the LEFT side with placement of approximately 3-1/2 mL of cement with good spread throughout the vertebral body and then on the RIGHT side was approximately 3 1/2 mL cement with good spread throughout the vertebral body. There was no extrusion of cement through the lateral dumont, anterior or posterior dumont. Also no extrusion through superior or inferior dumont. The bone access trochars were removed and dressing was placed. The patient was taken back to recovery in stable condition. She had good resolution of her back pain 5 minutes after the procedure. She tolerated the procedure well with no complications and was discharged home neurologically intact. We will follow-up with this patient in 2 weeks to reevaluate symptoms at that time. I have encouraged continued wearing of the brace. Condition: stable Disposition: PACU Complications:: None
== END 2022-07-03 11:35 | disposition home or self-care (01) ==
PROVIDERS: PCP Internal Medicine; Visit Provider Anesthesiology
DX: M80.08XA Age-related osteoporosis with current pathological fracture, vertebra(e), initial encounter for fracture (principal); Z79.899 Other long term (current) drug therapy
CPT/HCPCS: 22513; 96374; J2704; J3370

== ENCOUNTER → 2022-07-16 15:02 | Outpatient (POV) | payer MEDICARE, OTHER, SELFPAY ==
[2022-07-16 15:18] VITALS: BP 129/66; PULSE 79; RESP 18; O2SAT 98; BMI 25.2
--- NOTE | 2022-07-16 15:25 | EXP.PAIN.SOA ---
[facility] Pain Management SOAP Note Subjective:: Patient is a pleasant 82-year-old female who presents today for follow-up of T11 kyphoplasty on 07/03/2022. 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 Today she rates her pain a 0 out of 10. Patient denies any new trauma or injury. Patient denies any change location or type of pain she experiences. Patient states she immediately had pain relief following her kyphoplasty procedure and is continued to do well. She does state that occasionally the back brace does cause additional hip pain. She does state that she has trouble with her hips on a daily basis and describes this as a aching sensation that is worse with increased activity. Patient states she frequently has increased pain when she has been up standing for long periods of time. Patient denies any recent imaging. Patient also states that she is waiting to hear back from her primary care doctor regarding starting her on medications for her osteoporosis. Patient is not on any scheduled medications. Her Camilo is [phone]. Its been reviewed and appropriate. Review of Systems: General: No recent weight changes, no fever, no sleep disturbances Respiratory: No cough, no shortness of air, no recurring pulmonary infections Cardiovascular/peripheral vascular: No chest pain, no palpitations, no edema, no shortness of breath Gastrointestinal: No new onset incontinence, normal bowel movements reported Genitourinary: No new onset incontinence Musculoskeletal: Bilateral hip pain Psychiatric: [Normal mood/affect] Neurological: [Denies weakness in extremities], [denies balance issues] Objective:: Physical Exam: General: Alert and oriented x3, no acute distress, pleasant and cooperative Lungs: Respirations even and unlabored, symmetrical chest expansion Eyes: PERRL Musculoskeletal: Flexion and extension of lumbar [spine] somewhat guarded secondary to pain, [antalgic gait noted] Neurological: Speech clear, no gross sensory deficit Assessment:: low back pain, mid back pain, sacroiliitis, left groin pain, trochanteric bursitis, bilateral hip pain, acute compression fracture at T11, 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 Patient did have limited range of motion of her lumbar spine during today's visit. I have discussed with the patient that she may benefit from intra-articular hip injections in the future. I will order x-rays of her bilateral hips at today's visit. I have counseled the patient that she can discontinue her back brace if it is causing her additional hip pain. Patient will return to clinic in 1 month for reevaluation of symptoms and plan of care. Patient has been instructed to contact the clinic with any concerns before the next appointment. Dr. Gastelum has reviewed this note and agrees with this plan of care. This note was dictated using voice recognition software and make contain errors or omissions. [facility] Disclaimer: The information contained in this section may have been updated after the patient was seen, as this information can be updated by other users. Medical History Abnormal EKG Asthma CAD (coronary artery disease) Dyspnea History of anemia History of gastroesophageal reflux (GERD) Osteoarthritis Surgical History H/O bilateral oophorectomy H/O cataract extraction History of hemiarthroplasty of left shoulder History of kyphoplasty Hx of appendectomy Presence of stent in coronary artery Family History Ot
== END ==
PROVIDERS: PCP Internal Medicine; Visit Provider Nurse Practitioner Family
DX: M51.16 Intervertebral disc disorders with radiculopathy, lumbar region (principal); M51.34 Other intervertebral disc degeneration, thoracic region; M46.1 Sacroiliitis, not elsewhere classified; R10.32 Left lower quadrant pain; M70.60 Trochanteric bursitis, unspecified hip; M25.551 Pain in right hip; M25.552 Pain in left hip
CPT/HCPCS: 99212; G0463

== ENCOUNTER → 2022-07-21 10:53 | Outpatient (POV) | payer SELFPAY | PROVIDERS: Visit Provider Dermatology | DX: Z00.00 Encounter for general adult medical examination without abnormal findings (principal) ==

== ENCOUNTER → 2022-07-21 11:29 | Outpatient (CLI) | payer MEDICARE, OTHER, SELFPAY ==
--- NOTE | 2022-07-21 11:32 | XR_ITS ---
FINAL REPORT CLINICAL HISTORY: CORDELL HIP PAIN, no recent injury, hx of SI joint sx with cadaver bone COMPARISON: January 2021 FINDINGS: 2 views of the right hip were obtained. There is no acute fracture or dislocation. There are mild degenerative changes. There are no soft tissue abnormalities. IMPRESSION: Mild degenerative change, stable. Reviewed, Interpreted and Dictated by Andrae Hernández III, MD Transcribed by David Pierre Authenticated and [facility]
--- NOTE | 2022-07-21 11:32 | XR_ITS ---
FINAL REPORT CLINICAL HISTORY: CORDELL HIP PAIN FINDINGS: 2 views of the left hip and an AP pelvis were obtained. There is no acute fracture or dislocation. There are mild degenerative changes of both hips. There is postoperative change in the lower lumbar spine with kyphoplasty. There are no soft tissue abnormalities. IMPRESSION: Mild degenerative change. Reviewed, Interpreted and Dictated by Andrae Hernández III, MD Transcribed by David Pierre Authenticated and [facility]
== END ==
PROVIDERS: PCP Internal Medicine; Visit Provider Nurse Practitioner Family
DX: M25.552 Pain in left hip (principal); M25.551 Pain in right hip
CPT/HCPCS: 73502

== ENCOUNTER 2022-07-30 09:14 | Outpatient (CLI) | payer MEDICARE, OTHER, SELFPAY ==
[2022-07-30 10:05] VITALS: BP 129/64; PULSE 68; RESP 16; O2SAT 97
[2022-07-30 10:20] VITALS: BP 119/57; PULSE 67; RESP 16
== END 2022-07-30 10:30 | disposition home or self-care (01) ==
LOC: INF 09:15
PROVIDERS: PCP Internal Medicine; Visit Provider Internal Medicine
DX: M81.0 Age-related osteoporosis without current pathological fracture (principal)
CPT/HCPCS: 96374; J3489

== ENCOUNTER → 2022-07-30 13:49 | Outpatient (POV) | payer MEDICARE, OTHER, SELFPAY ==
--- NOTE | 2022-07-30 14:25 | EXP.PAIN.SOA ---
[facility] Pain Management SOAP Note Subjective:: Patient is a pleasant 82-year-old female who presents today for follow-up. 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 Today she rates her pain a 5 out of 10. Patient states that her low back/hips are causing significant pain and decreased function. She does describe this as an aching, throbbing sensation that is worse with increased activity. Patient did previously had SI stabilization procedure couple years ago however over the last year she has started having increased pain. Patient states she cannot tolerate prolonged sitting, standing, walking. She does state that her hips continue to be very weak and she is worried about possibly falling. Patient has just started her osteoporosis infusions and had 1 today. Patient denies any side effects from this medication. Patient continues to state that she has not had any additional back pain following her kyphoplasty. Her Camilo has been reviewed and is appropriate. Review of Systems: General: No recent weight changes, no fever, no sleep disturbances Respiratory: No cough, no shortness of air, no recurring pulmonary infections Cardiovascular/peripheral vascular: No chest pain, no palpitations, no edema, no shortness of breath Gastrointestinal: No new onset incontinence, normal bowel movements reported Genitourinary: No new onset incontinence Musculoskeletal: Low back/hip pain Psychiatric: [Normal mood/affect] Neurological: [Denies weakness in extremities], [denies balance issues] Objective:: Physical Exam: General: Alert and oriented x3, no acute distress, pleasant and cooperative Lungs: Respirations even and unlabored, symmetrical chest expansion Eyes: PERRL Musculoskeletal: Flexion and extension of lumbar [spine] somewhat guarded secondary to pain, [antalgic gait noted] extreme point tenderness along her right SI with positive right Johanna's, Ana's, Gaenslen's, compression and distraction exam Neurological: Speech clear, no gross sensory deficit CLINICAL HISTORY: CORDELL HIP PAIN, no recent injury, hx of SI joint sx with cadaver bone COMPARISON: January 2021 FINDINGS: 2 views of the right hip were obtained. There is no acute fracture or dislocation.? There are mild degenerative changes. There are no soft tissue abnormalities. IMPRESSION: Mild degenerative change, stable. Reviewed, Interpreted and Dictated by Andrae Hernández III, MD Transcribed by David Pierre Authenticated and . [facility] FINAL REPORT CLINICAL HISTORY: CORDELL HIP PAIN FINDINGS: 2 views of the left hip and an AP pelvis were obtained. There is no acute fracture or dislocation.? There are mild degenerative changes of both hips.? There is postoperative change in the lower lumbar spine with kyphoplasty.? There are no soft tissue abnormalities. IMPRESSION: Mild degenerative change. Reviewed, Interpreted and Dictated by Andrae Hernández III, MD Transcribed by David Pierre Authenticated and . [facility] Assessment:: low back pain, mid back pain, sacroiliitis, left groin pain, trochanteric bursitis, bilateral hip pain, acute compression fracture at T11 status post kyphoplasty, degenerative disc disease of thoracic and lumbar spine with thoracic and lumbar radiculopathy symptoms Plan:: Patient is experiencing significant pain in her low back radiating into her hips. Patient did have limited range of motion of her lumbar spine with extreme point tenderness at her right SI and positive right Johanna's, Ana's, Gaenslen's, compression and distraction exam. I h
[2022-07-30 15:04] VITALS: BP 128/70; PULSE 74; RESP 18; O2SAT 98; BMI 25.2
== END ==
PROVIDERS: PCP Internal Medicine; Visit Provider Nurse Practitioner Family
DX: M51.16 Intervertebral disc disorders with radiculopathy, lumbar region (principal); M51.14 Intervertebral disc disorders with radiculopathy, thoracic region; M46.1 Sacroiliitis, not elsewhere classified; R10.32 Left lower quadrant pain; M25.552 Pain in left hip; M25.551 Pain in right hip; M70.60 Trochanteric bursitis, unspecified hip
CPT/HCPCS: 96374; 99212; G0463; J3489

== ENCOUNTER 2022-09-15 14:00 | Outpatient (RCR) | payer MEDICARE, OTHER, SELFPAY ==
--- NOTE | 2022-08-13 10:40 | HMH.PTOPEV ---
PT Outpatient Evaluation Rehab PT Outpatient Evaluation Start: 08/13/22 09:31 Freq: Status: Active Protocol: Document 08/13/22 09:31 ELENA (Rec: 08/13/22 10:39 ELENA [id number]) E-signed By Daija Devi, PT Outpatient Therapy Subjective History Subjective History Pt is an 82 y/o female who reports R>L chronic hip pain and sciatic. Pt reports pain starts posteriorly and wraps to the lateral hip to the knee described as a constant dull ache that is worse in the mornings and at night time. Pt denies symptoms distal to the knee or paresthesia. Pt reports her hips are very sore and tender to light touch. Pt reports pain is aggravated by prolonged sitting, standing and walking (20 minutes) and sit<>stand transfers. Pt reports she does feel off balance at times but denies dizziness or recent falls. Pt reports she does not use an AD at baseline. Pt reports a history of R hip surgery to stabilize the R SI joint a few years ago. Pt reports she has had multiple injections in her hips which help some, pt states her last injection was in June. Pt had bilateral hip radiographs performed at [facility] on 07/21/22 showing mild degenerative changes. Pt also has a lumbar spine MRI performed at [facility] on 05/20/22 showing Multilevel degenerative disc disease and spondylosis. Pt reports she takes Tylenol as needed which does help some, denies taking prescription medications for pain. Pt reports she has been sick and had a back surgery this winter so she has been more sedentary so she feels weak and fatigued more easily. Medical History: osteoporosis
--- NOTE | 2022-09-15 16:05 | HMH.RHREAS ---
Rehab Reassessment Rehab OP Re-assessment Start: 09/15/22 14:01 Freq: Status: Active Protocol: Document 09/15/22 14:01 MICHAELTRACY (Rec: 09/15/22 16:05 ELENA [id number]) E-signed By Daija Devi PT Rehab Re-assessment Subjective Subjective Pt reports she feels that her back feels 75% better since starting PT. Pt reports her legs feel stronger and she is able to stand on her feet longer. Pt reports pain at worse as 3/10 and intermittent catching sensations of the back that is worse at night time. Pt reports she is compliant with her HEP. Objective Objective Notes Lumbar AROM: 90 flex, 15 ext, 10 LF BLE MMT: /5 grossly R Hip IR/ER: 40/45 L hip IR/ER: 45/45 Assessment Progress Assessment Progressing as Expected Assessment Notes Pt has attended 9 PT visits consisting of aerobic exercise , LE stretching/strengthening, and modalities with good tolerance. Pt demonstrated improved lumbar AROM and LE strength this date compared to initial evaluation. Pt met most PT goals and is appropriate to d/c to independent HEP. Patient goals met ST/6 LT/11 Goals Not Met LE strength, balance Revised Goals n/a Plan Plan Discharge to independent HEP Frequency of Therapy 0 Duration of therapy 0 Time and Billing Re-Eval Time 13 Re-Eval Billing Units 1 PHYSICIAN CERTIFICATION: I certify the specified therapy services for Roseanne Andino are required, authorized, and reviewed every 30 days.
== END 2022-09-15 14:05 | disposition home or self-care (01) ==
LOC: PT 14:00
PROVIDERS: PCP Internal Medicine; Visit Provider Nurse Practitioner Family
DX: M25.551 Pain in right hip (principal); M25.552 Pain in left hip
CPT/HCPCS: 97010; 97014; 97110; 97163; 97164; 97530; G0283

== ENCOUNTER → 2022-10-06 10:45 | Outpatient (POV) | payer SELFPAY | PROVIDERS: Visit Provider Dermatology | DX: Z00.00 Encounter for general adult medical examination without abnormal findings (principal) ==

== ENCOUNTER → 2022-10-19 13:57 | Outpatient (POV) | payer MEDICARE, OTHER, SELFPAY ==
[2022-10-19 14:27] VITALS: BP 134/87; PULSE 73; RESP 18; O2SAT 97; BMI 25.9
--- NOTE | 2022-10-19 14:52 | EXP.PAIN.SOA ---
[facility] Pain Management SOAP Note Subjective:: Patient is a pleasant 82-year-old female who presents today for follow-up. We are currently treating the patient for degenerative disc disease of thoracic and lumbar spine with thoracic and lumbar radiculopathy symptoms, osteoporosis, low back pain, mid back pain, sacroiliitis, left groin pain, greater trochanteric bursitis, bilateral hip pain, acute compression fracture at T11 status post kyphoplasty. Today she rates her pain a 3 out of 10. Patient denies any new trauma or injury. Patient denies any change to location or type of pain she experiences. Patient states she has finished up her physical therapy and states this has provided significant improvement and helped her overall weakness in her legs. Patient states that she is continuing to do these exercises at home however she is still having right hip pain. Patient does have a significant history of osteoporosis and is now on a once a year infusion for it. Patient states she has had a previous history of fractures and has had multiple steroid injections over the years in [place] at [facility]. Patient is worried about getting any additional injections due to the chronic steroid use. Patient is not on any scheduled medications. Her Camilo is [phone]. Its been reviewed and appropriate. Review of Systems: General: No recent weight changes, no fever, no sleep disturbances Respiratory: No cough, no shortness of air, no recurring pulmonary infections Cardiovascular/peripheral vascular: No chest pain, no palpitations, no edema, no shortness of breath Gastrointestinal: No new onset incontinence, normal bowel movements reported Genitourinary: No new onset incontinence Musculoskeletal: Right hip pain Psychiatric: [Normal mood/affect] Neurological: [Denies weakness in extremities], [denies balance issues] Objective:: Physical Exam: General: Alert and oriented x3, no acute distress, pleasant and cooperative Lungs: Respirations even and unlabored, symmetrical chest expansion Eyes: PERRL Musculoskeletal: Flexion and extension of right hip somewhat guarded secondary to pain, [antalgic gait noted] Neurological: Speech clear, no gross sensory deficit Assessment:: degenerative disc disease of thoracic and lumbar spine with thoracic and lumbar radiculopathy symptoms, osteoporosis, low back pain, mid back pain, sacroiliitis, left groin pain, greater trochanteric bursitis, bilateral hip pain, acute compression fracture at T11 status post kyphoplasty Plan:: Patient has had significant improvement following her completion of physical therapy. At this time we will hold off on any steroid injections due to the severity of her osteoporosis. I will send a referral for [facility] for her right hip pain and possible joint replacement. We will follow-up with the patient in 1 month for reevaluation of symptoms and plan of care. Patient has been instructed to contact the clinic with any concerns before the next appointment. Dr. Gastelum has reviewed this note and agrees with this plan of care. This note was dictated using voice recognition software and make contain errors or omissions. [facility] Disclaimer: The information contained in this section may have been updated after the patient was seen, as this information can be updated by other users. Medical History (Updated 08/20/22 @ 13:45 by Marley Leggett MD) Abnormal EKG Allergic rhinitis Allergic rhinitis Asthma Asthma CAD (coronary artery disease) Chronic cough Dyspnea History of anemia History of gastroesophageal reflux (GERD) Midline cystocele Osteoarthritis Restrictive lung disease Uterine prolapse Surgical History H/O bilateral oophorectomy H/O cataract extraction History of hemiarthroplasty of left shoulder History of kyphoplasty Hx of appendectomy Presence of stent in coronary artery Family History (Reviewed 08/20/22 @ 13:16 by Charleen
== END ==
PROVIDERS: Visit Provider Nurse Practitioner Family
DX: M51.16 Intervertebral disc disorders with radiculopathy, lumbar region (principal); M51.14 Intervertebral disc disorders with radiculopathy, thoracic region; M46.1 Sacroiliitis, not elsewhere classified; M19.90 Unspecified osteoarthritis, unspecified site; M70.60 Trochanteric bursitis, unspecified hip; R10.2 Pelvic and perineal pain; M25.552 Pain in left hip; M25.551 Pain in right hip
CPT/HCPCS: 99212; G0463

== ENCOUNTER → 2022-11-19 07:48 | Outpatient (CLI) | payer MEDICARE, OTHER, SELFPAY | PROVIDERS: PCP Internal Medicine; Visit Provider Internal Medicine Pulmonary Disease | DX: R06.09 Other forms of dyspnea (principal) | CPT/HCPCS: 94060; 94618; 94726; 94729 ==

== ENCOUNTER → 2022-11-20 16:29 | Outpatient (CLI) | payer MEDICARE, OTHER, SELFPAY ==
[2022-11-20 17:27] LABS: Basophils % 0.4 % (0.1-2.0); Eosinophils # 0.3 K/mm3 (0.0-0.4); Eosinophils % 4.9 % (0.1-12.0); Hemoglobin 13.9 g/dL (12.2-16.2); Lymphocytes # 1.7 K/mm3 (0.7-4.5); Lymphocytes % 25.1 % (10-50); Mean Corpuscular HGB Conc 31.6 g/dL (31.8-35.4); Mean Corpuscular Hemoglobin 29.7 pg (27.0-31.2); Mean Corpuscular Volume 93.9 fl (81-99); Mean Platelet Volume 8.4 fl (7.4-10.4); Monocytes # 0.4 K/mm3 (0.1-1.0); Monocytes % 5.5 % (1.7-9.3); Neutrophils # 4.3 K/mm3 (1.8-7.8); Platelet Count 246 K/mm3 (142-424); Red Blood Count 4.68 M/mm3 (4.20-5.40); Red Cell Distribution Width 14.1 % (11.5-17.5); White Blood Count 6.7 K/mm3 (4.8-10.8)
[2022-11-20 17:47] LABS: Alanine Aminotransferase 25 U/L (12-78); Albumin Level 4.1 g/dl (3.5-5.0); Albumin/Globulin Ratio 1.7 (1.1-1.8); Alkaline Phosphatase 77 U/L (38-126); Anion Gap 10.6 mEq/L (5-15); Aspartate Amino Transferase 34 U/L (14-36); Bilirubin,Total 0.4 mg/dl (0.2-1.3); Blood Urea Nitrogen 25 mg/dl (7-17); Calcium 9.9 mg/dl (8.4-10.2); Carbon Dioxide 28 mmol/L (22.0-30.0); Chloride 103 mmol/L (98-107); Cholesterol 192 mg/dl (140-200); Estimated Glomerular Filt Rate 53 ml/min (>60); GFR (African American) 64 ML/MIN (>60); Globulin 2.4 g/dL (1.3-3.2); Glucose 119 mg/dl (74-100); Magnesium 1.9 mg/dl (1.6-2.3); Potassium 4.6 mmoL/L (3.5-5.1); Sodium 137 mmol/L (136-145); Total Protein,Serum 6.5 g/dl (6.3-8.2); Triglycerides 127 mg/dl (30-150); VLDL Cholesterol 25 mg/dL (0-40)
[2022-11-20 17:54] LABS: Chol/HDL Ratio 1.7 (1-3.5); HDL Cholesterol 114 mg/dl (40-60)
[2022-11-20 17:57] LABS: Direct LDL Cholesterol 68.01 mg/dL (100-129)
[2022-11-20 18:35] LABS: Vitamin B12 452 pg/mL (239-931)
== END ==
PROVIDERS: PCP Internal Medicine; Visit Provider Internal Medicine
DX: E55.9 Vitamin D deficiency, unspecified (principal); E78.5 Hyperlipidemia, unspecified; R53.83 Other fatigue
CPT/HCPCS: 80053; 80061; 82607; 83735; 85025

== ENCOUNTER → 2022-11-20 21:11 | Outpatient (CLI) | payer MEDICARE, OTHER, SELFPAY | PROVIDERS: PCP Internal Medicine; Visit Provider Internal Medicine | DX: R53.83 Other fatigue (principal) ==

== ENCOUNTER → 2022-12-15 13:32 | Outpatient (POV) | payer MEDICARE, OTHER, SELFPAY | PROVIDERS: Visit Provider Dermatology | DX: Z00.00 Encounter for general adult medical examination without abnormal findings (principal) ==

== ENCOUNTER → 2022-12-23 13:36 | Outpatient (POV) | payer MEDICARE, OTHER, SELFPAY ==
--- NOTE | 2022-12-23 14:14 | EXP.PAIN.SOA ---
[facility] Pain Management SOAP Note Subjective:: Patient is a pleasant 82-year-old female who presents today for follow-up. We are currently treating the patient for degenerative disc disease of thoracic and lumbar with thoracic and lumbar radiculopathy symptoms, osteoporosis, low back pain, mid back pain, sacroiliitis, left groin pain, greater trochanteric bursitis, bilateral hip pain, acute compression fracture at T11 status post kyphoplasty. Today she rates her pain a 4 out of 10. Patient states that she has not had any new trauma or injury. She denies any change location or type of pain she experiences. She states she continues to have low back and right hip pain and describes it as a aching, throbbing sensation that is worse with increased activity. Patient does have some numbness and tingling into her right leg. Patient does state that the pain interferes with her ability perform activities of daily living such as cooking and cleaning. At her last visit we did send her referral for office related to her chronic right hip pain however he thought the pain was not coming from her hip. He did send her on to Dr. Smith who is suggesting a lumbar epidural at L4-L5. Patient does have a longstanding history of osteoporosis and is still concerned about the steroid use. Patient has been to physical therapy recently with some improvement with the weakness in her legs. She does continue to do these at home exercises. Patient is currently prescribed clonazepam 0.5 mg 3 times a day from her primary care doctor. She does also state that she has been experiencing more fatigue and that even last night she went to bed before 8 PM. Patient does state that she is currently on a prescription for a nasal fungal infection and will be on for the next 2 months. She is unsure if this has anything to do with her fatigue. Her Camilo is [phone]. Its been reviewed and appropriate. Review of Systems: General: No recent weight changes, no fever, no sleep disturbances Respiratory: No cough, no shortness of air, no recurring pulmonary infections Cardiovascular/peripheral vascular: No chest pain, no palpitations, no edema, no shortness of breath Gastrointestinal: No new onset incontinence, normal bowel movements reported Genitourinary: No new onset incontinence Musculoskeletal: Low back pain, right leg pain Psychiatric: [Normal mood/affect] Neurological: [Denies weakness in extremities], [denies balance issues] Objective:: Physical Exam: General: Alert and oriented x3, no acute distress, pleasant and cooperative Lungs: Respirations even and unlabored, symmetrical chest expansion Eyes: PERRL Musculoskeletal: Flexion and extension of lumbar [spine] somewhat guarded secondary to pain, [antalgic gait noted] positive right leg raise, decreased Achilles reflex and decreased sensation to light touch along the right leg Neurological: Speech clear, no gross sensory deficit Assessment:: Degenerative disc disease of thoracic and lumbar spine with thoracic and lumbar radiculopathy symptoms, osteoporosis, low back pain, mid back pain, sacroiliitis, left groin pain, greater trochanteric bursitis, bilateral hip pain, acute compression fracture at T11 status post kyphoplasty Plan:: Patient continues to experience significant pain in her low back with lumbar radiculopathy symptoms. I have discussed with her that she may benefit from a right transforaminal epidural steroid injection due to her positive right leg raise and decreased reflexes and sensation to light touch. Risk and benefits were discussed with the patient and she would like to proceed forward with this plan of care. Patient is not on any blood thinners. Patient denies any recent routine lab work. I will also order a CBC, CMP and thyroid panel related to her increased fatigue. I have counseled the patient that if she does get significant relief with this injection we will minimize how many she gets per year due to her significant o
[2022-12-23 14:47] LABS: Basophils % 0.5 % (0.1-2.0); Eosinophils # 0.2 K/mm3 (0.0-0.4); Eosinophils % 3.6 % (0.1-12.0); Hematocrit 45.7 % (37.0-47.0); Hemoglobin 14.4 g/dL (12.2-16.2); Lymphocytes # 1.5 K/mm3 (0.7-4.5); Lymphocytes % 22.6 % (10-50); Mean Corpuscular HGB Conc 31.6 g/dL (31.8-35.4); Mean Corpuscular Hemoglobin 30.2 pg (27.0-31.2); Mean Corpuscular Volume 95.5 fl (81-99); Mean Platelet Volume 8.1 fl (7.4-10.4); Monocytes # 0.4 K/mm3 (0.1-1.0); Monocytes % 6.5 % (1.7-9.3); Neutrophils # 4.5 K/mm3 (1.8-7.8); Neutrophils % 66.8 % (37.0-80.0); Platelet Count 231 K/mm3 (142-424); Red Blood Count 4.78 M/mm3 (4.20-5.40); Red Cell Distribution Width 14.5 % (11.5-17.5); White Blood Count 6.7 K/mm3 (4.8-10.8)
[2022-12-23 15:08] LABS: Alanine Aminotransferase 25 U/L (12-78); Albumin Level 4.1 g/dl (3.5-5.0); Albumin/Globulin Ratio 1.6 (1.1-1.8); Alkaline Phosphatase 83 U/L (38-126); Anion Gap 10.7 mEq/L (5-15); Aspartate Amino Transferase 33 U/L (14-36); Bilirubin,Total 0.3 mg/dl (0.2-1.3); Blood Urea Nitrogen 23 mg/dl (7-17); Calcium 9.7 mg/dl (8.4-10.2); Carbon Dioxide 30 mmol/L (22.0-30.0); Chloride 103 mmol/L (98-107); Estimated Glomerular Filt Rate 53 ml/min (>60); GFR (African American) 64 ML/MIN (>60); Globulin 2.5 g/dL (1.3-3.2); Glucose 79 mg/dl (74-100); Potassium 4.7 mmoL/L (3.5-5.1); Sodium 139 mmol/L (136-145); Total Protein,Serum 6.6 g/dl (6.3-8.2)
[2022-12-23 15:46] VITALS: BP 117/60; PULSE 70; RESP 20; O2SAT 96; BMI 26.1
[2022-12-23 19:27] LABS: T4 (Thyroxine) 6.3 ug/dl (5.53-11.0); Triiodothryronine (T3) Uptake 32 % (23.5-40.5)
[2022-12-23 19:40] LABS: Thyroid Stimulating Hormone 1.28 uIU/mL (0.465-4.68)
== END ==
PROVIDERS: PCP Internal Medicine; Visit Provider Nurse Practitioner Family
DX: R53.83 Other fatigue (principal); M51.14 Intervertebral disc disorders with radiculopathy, thoracic region; M51.16 Intervertebral disc disorders with radiculopathy, lumbar region; M81.0 Age-related osteoporosis without current pathological fracture; M46.1 Sacroiliitis, not elsewhere classified; R10.30 Lower abdominal pain, unspecified; M70.60 Trochanteric bursitis, unspecified hip; M25.551 Pain in right hip; M25.552 Pain in left hip; Z98.890 Other specified postprocedural states
CPT/HCPCS: 36415; 80053; 84436; 84443; 84479; 85025; 99212; G0463

== ENCOUNTER 2023-01-05 10:36 | Day surgery (SDC) | payer MEDICARE, OTHER, SELFPAY ==
[2023-01-05 10:56] VITALS: BP 142/80; PULSE 81; RESP 16; TEMP 37.1; O2SAT 98; BMI 25.2
[2023-01-05 11:03] VITALS: BP 180/66; PULSE 61; RESP 18; O2SAT 98
[2023-01-05 11:04] VITALS: BP 180/66; PULSE 61; RESP 18; O2SAT 98
--- NOTE | 2023-01-05 11:27 | P.PCN_ITS ---
Procedure Date: 01/05/23 Time: 11:00 Anesthesiologist:: Harsh Merchant CRNA Complications:: None Pre-procedure Diagnosis:: Degenerative disc lumbar spine multilevels. Lumbar radiculopathy. Disc bulge lumbar spine multilevels. Right L4-5, L5-S1 foraminal narrowing. Post-procedure Diagnosis:: Same. Indications for Procedure:: Patient is a very pleasant 82-year-old female that comes our clinic today for right L4-5, L5-S1 transforaminal epidural steroid injection. Patient has right posterior hip and leg pain she describes as constant, dull, aching. Patient has difficulty ambulating due to right hip and leg pain. She has difficulty with flexion, extension due to lumbar back pain. Procedure Details:: Details of the procedure were explained to the patient. The patient was taken the procedure room placed in the prone position. The area of the lumbar spine was cleansed using chlorhexidine as a cleansing solution. At this time using fluoroscopy guidance markers were placed on the right lateral border of the L4 and L5 vertebral body. The skin and subcutaneous tissue was anesthetized using 1% lidocaine and 25-gauge needle. At this time using a 22-gauge 3-1/2 inch spinal needle the right upper one third of the L4-5 foramen was accessed. The same was done at the right L5-S1 foramen. Needle positions were confirmed and a lateral view using fluoroscopy and contrast dye. At this time 1 cc of 1% lidocaine +20 mg of Depo-Medrol was injected at each level after negative aspiration. [place] were removed. Band-Aid applied. Patient tolerated the procedure without difficulty. There are no complications. Plan and Disposition:: Patient was discharged without incident.
[2023-01-05 11:35] VITALS: BP 139/97; PULSE 55; RESP 18; TEMP 36.4; O2SAT 99
== END 2023-01-05 11:35 | disposition home or self-care (01) ==
PROVIDERS: PCP Internal Medicine; Visit Provider Nurse Anesthetist, Certified Registered
DX: M51.16 Intervertebral disc disorders with radiculopathy, lumbar region (principal); M48.061 Spinal stenosis, lumbar region without neurogenic claudication
CPT/HCPCS: 64483; 64484; J1030

== ENCOUNTER → 2023-01-13 13:13 | Outpatient (CLI) | payer MEDICARE, OTHER, SELFPAY ==
[2023-01-13 15:29] LABS: Alanine Aminotransferase 24 U/L (12-78)
[2023-01-13 16:50] LABS: Basophils % 0.2 % (0.1-2.0); Eosinophils # 0.1 K/mm3 (0.0-0.4); Eosinophils % 2.8 % (0.1-12.0); Hematocrit 46.7 % (37.0-47.0); Hemoglobin 14.4 g/dL (12.2-16.2); Lymphocytes # 1.4 K/mm3 (0.7-4.5); Lymphocytes % 26.7 % (10-50); Mean Corpuscular HGB Conc 30.8 g/dL (31.8-35.4); Mean Corpuscular Hemoglobin 30.4 pg (27.0-31.2); Mean Corpuscular Volume 98.9 fl (81-99); Mean Platelet Volume 9.6 fl (7.4-10.4); Monocytes # 0.3 K/mm3 (0.1-1.0); Monocytes % 6.3 % (1.7-9.3); Neutrophils # 3.2 K/mm3 (1.8-7.8); Neutrophils % 63.8 % (37.0-80.0); Platelet Count 243 K/mm3 (142-424); Red Blood Count 4.72 M/mm3 (4.20-5.40); Red Cell Distribution Width 14.3 % (11.5-17.5)
== END ==
PROVIDERS: PCP Internal Medicine; Visit Provider Internal Medicine
DX: B35.1 Tinea unguium (principal); Z79.899 Other long term (current) drug therapy
CPT/HCPCS: 84460; 85025

== ENCOUNTER 2023-01-24 08:02 | Emergency (ER) | payer MEDICARE, OTHER, SELFPAY ==
[2023-01-24 08:10] VITALS: BP 148/71; PULSE 85; RESP 18; TEMP 36.9; O2SAT 96; BMI 25.2
--- NOTE | 2023-01-24 08:25 | XR_ITS ---
PROCEDURE INFORMATION: Exam: XR Left Ribs with PA Chest Exam date and time: 01/24/2023 8:24 AM Age: 82 years old Clinical indication: Other: Left rib pain; Additional info: Pain in ribs TECHNIQUE: Imaging protocol: Radiologic exam of the left ribs with PA chest. Views: 3 views COMPARISON: CR XR CHEST 2V 12/11/2021 10:53 AM FINDINGS: Lungs: There is mild left basilar atelectasis without change. Pleural spaces: Unremarkable. No pleural effusion. No pneumothorax. Heart/Mediastinum: There is a large hiatal hernia. Bones/joints: There is no evidence of acute rib fracture. There is an old left 8th rib fracture. The patient is status post vertebroplasty at multiple levels. IMPRESSION: 1. No evidence of acute process. No evidence of acute fracture. There is an old appearing left 8th rib fracture. 2. Large hiatal hernia.
--- NOTE | 2023-01-24 08:28 | EXP.UTC ---
Discharge Plan Disposition Patient Disposition: Home, Self-Care Condition: Good Prescriptions Prescriptions: New methocarbamol 500 mg tablet 500 mg PO TID PRN (Reason: muscle spasm) Qty: 12 0RF No Action aspirin [Adult Low Dose Aspirin] 81 mg tablet,delayed release (DR/EC) 81 mg PO DAILY omeprazole 40 mg capsule,delayed release(DR/EC) 40 mg PO DAILY 90 Days Qty: 90 vitamin B complex Tablet 1 tab PO DAILY cholecalciferol (vitamin D3) 1,000 unit capsule 1,000 unit PO DAILY Livalo 4 mg tablet 4 mg PO DAILY fluticasone propionate 50 mcg/actuation spray,suspension 50 mcg INTRANASAL DAILY Patient Comments: USE 1 TO 2 SPRAY(S) IN EACH NOSTRIL ONCE DAILY ipratropium-albuterol 0.5 mg-3 mg(2.5 mg base)/3 mL solution for nebulization 3 ml INHALATION Q6H PRN (Reason: shortness of breath or wheezing) Qty: 180 12RF albuterol sulfate 90 mcg/actuation HFA aerosol inhaler 1 inh INHALATION QID PRN (Reason: shortness of breath or wheezing) Qty: 8.5 12RF cetirizine 10 mg tablet 10 mg PO DAILY Patient Comments: TAKE 1 TABLET BY MOUTH ONCE DAILY estradiol 0.01 % (0.1 mg/gram) cream 0.5 g VAGINAL .Twice Weekly Qty: 42.5 0RF Rx Instructions: Blueberry Size twice weekly spironolactone 25 MG tablet 25 mg PO DAILY sertraline 100 MG tablet 100 mg PO DAILY clonazepam 0.5 mg tablet 0.5 mg PO DAILY Patient Comments: TAKE 1 TABLET BY MOUTH ONCE DAILY terbinafine HCl 250 mg tablet 250 mg PO DAILY Patient Comments: TAKE 1 TABLET BY MOUTH ONCE DAILY montelukast 10 mg tablet 10 mg PO DAILY calcium carbonate 500 MG tablet,chewable 1,000 mg PO DAILY fluticasone propion-salmeterol [Advair Diskus] 250-50 mcg/dose blister with device 1 inh inhalation BID azelastine 137 mcg (0.1 %) aerosol,spray 2 spray intranasal HS Rx Instructions: administer into each nostril Referrals Follow up/Referrals: Deshaun Dupree MD [Primary Care Provider] - See instructions Activity Restrictions/Add. Instructions Additional Instructions/Restrictions: *Over the counter Ibuprofen edilberto 6 hours with meal as needed for pain/inflammation if you can take it *Not additional anti-inflammatory like motrin, aleve, advil with the above amount of ibuprofen. You can still take Tylenol every 4 hours as needed if you need something else for pain *Ice 20 minutes every 2 hours for the first 48 hours after the initial injury followed by moist heat every 20 minutes 3-4 times a day to affected area *Muscle relaxer every 8 hours as needed for muscle spasms but remember, it WILL cause drowsiness You cannot take it and drive, operate machinery or care for small children. *Keep this area active, no movement leads to more stiffness, However take it easy and avoid heavy lifting pushing or pulling *Follow up with you family doctor if no improvement for further treatment Clinical Impressions Clinical Impression: Muscle strain Instructions Patient Instructions: Muscle Strain, DI for Muscle Spasm Discharge ED Provider: Melany [place] [facility] [place] General Stated complaint: back pain, no accident Mode of Arrival: Ambulatory Source of Information: Patient Limitations: No Limitations Time Seen by Provider: 01/24/23 08:28 Description of Symptoms (Recalled from Triage Doc. by RN): Pt stated she was working in the yard on and she heard a pop in her back. She stated that it hurt under her left shoulder and wraps around under breast. She states that shes prone to fx. HEENT Symptoms (Recalled from RN notes): No Resp Symptoms (Recalled from RN notes): No Skin Symptoms (Recalled from RN notes): No MS Symptoms (Recalled from RN notes): Yes Functional Status (Recalled from RN notes): n/a History of Present Illness Provider Complaint: Patient states that she was working in the yard on and felt a pop on her left side of her
[2023-01-24 09:15] VITALS: BP 148/71; PULSE 85; RESP 18; TEMP 36.9; O2SAT 96
== END 2023-01-24 09:15 | disposition home or self-care (01) ==
PROVIDERS: Emergency Provider Nurse Practitioner; PCP Internal Medicine
DX: S29.011A Strain of muscle and tendon of front wall of thorax, initial encounter (principal); J45.909 Unspecified asthma, uncomplicated; I25.10 Atherosclerotic heart disease of native coronary artery without angina pectoris; M19.90 Unspecified osteoarthritis, unspecified site; K21.9 Gastro-esophageal reflux disease without esophagitis; J98.4 Other disorders of lung; R05.3 Chronic cough; X50.0XXA Overexertion from strenuous movement or load, initial encounter
CPT/HCPCS: 71101; 99212; 99214; G0463

== ENCOUNTER → 2023-01-27 10:39 | Outpatient (POV) | payer MEDICARE, OTHER, SELFPAY ==
[2023-01-27 11:55] VITALS: BP 124/76; PULSE 71; RESP 18; O2SAT 97; BMI 25.9
--- NOTE | 2023-01-27 12:11 | EXP.PAIN.SOA ---
[facility] Pain Management SOAP Note Subjective:: Patient is a pleasant 82-year-old female who presents today for follow-up of lab work including a CBC, CMP and thyroid panel due to increased fatigue and follow-up of right transforaminal epidural steroid injection L4-L5 and L5-S1 on 01/05/2023. We are currently treating the patient for degenerative disc disease of thoracic and lumbar spine with thoracic and lumbar radiculopathy symptoms, osteoporosis, low back pain, mid back pain, sacroiliitis, left groin pain, greater trochanteric bursitis, bilateral hip pain, acute compression fracture at T11 status post kyphoplasty, chronic pain. Today she rates her pain a 3 out of 10. Patient states that she did not notice any additional improvements with the last injection. She states that she still remains at her baseline and continues to have pain in her low back and into her right leg. She does also state that she has been having some muscle pain up along her left side of her neck into her left shoulder. Patient states that she had been gardening and feels like she may have pulled something. Patient is currently managed with clonazepam 0.5 mg 3 times a day from her primary care doctor. Patient has tried compounded cream in the past. Her Camilo is [phone]. Its been reviewed and appropriate. Review of Systems: General: No recent weight changes, no fever, no sleep disturbances Respiratory: No cough, no shortness of air, no recurring pulmonary infections Cardiovascular/peripheral vascular: No chest pain, no palpitations, no edema, no shortness of breath Gastrointestinal: No new onset incontinence, normal bowel movements reported Genitourinary: No new onset incontinence Musculoskeletal: Left-sided neck pain, left shoulder pain, low back pain, right leg pain Psychiatric: [Normal mood/affect] Neurological: [Denies weakness in extremities], [denies balance issues] Objective:: Physical Exam: General: Alert and oriented x3, no acute distress, pleasant and cooperative Lungs: Respirations even and unlabored, symmetrical chest expansion Eyes: PERRL Musculoskeletal: Flexion and extension of lumbar [spine] somewhat guarded secondary to pain, [antalgic gait noted] Neurological: Speech clear, no gross sensory deficit Assessment:: Degenerative disc disease of thoracic and lumbar spine with thoracic and lumbar radiculopathy symptoms, osteoporosis, low back pain, mid back pain, sacroiliitis, left groin pain, greater trochanteric bursitis, bilateral hip pain, acute compression fracture of T11 status post kyphoplasty, chronic pain syndrome Plan:: I have reviewed over the patient's CBC, CMP and thyroid panel with the patient. I have discussed with her that she does have a decreased GFR of 53. I have counseled her to discontinue all NSAIDs while her kidney function remains low. I have recommended that she contact her primary care provider and get in for an appointment to review over her current medications and if any additional adjustments need to be made due to the altered kidney function. I have counseled the patient that she can take Tylenol additionally for help with her pain symptoms on a day-to-day basis. I have discussed with the patient that in future it may be more beneficial to try her on a very low dose hydrocodone 5 mg once daily for her chronic pain however I would like for her to discuss this with her PCP before we proceed forward with this option. I have counseled the patient that with her new muscle pain on the left side of her neck into her shoulder we could do trigger point injections however I have also reviewed over the patient due to her history of osteoporosis that we do want to be very cautious with continued steroid usage. Patient will return to clinic in 1 month for reevaluation of symptoms and plan of care. Patient has been instructed to contact the clinic with any concerns before the next appointment. Dr. Gastelum has reviewed this note and agrees with this plan of care.
== END ==
PROVIDERS: PCP Internal Medicine; Visit Provider Nurse Practitioner Family
DX: M51.14 Intervertebral disc disorders with radiculopathy, thoracic region (principal); M51.16 Intervertebral disc disorders with radiculopathy, lumbar region; M19.90 Unspecified osteoarthritis, unspecified site; M46.1 Sacroiliitis, not elsewhere classified; R10.32 Left lower quadrant pain; M70.60 Trochanteric bursitis, unspecified hip; M25.551 Pain in right hip; M25.552 Pain in left hip; G89.4 Chronic pain syndrome; M84.48XS Pathological fracture, other site, sequela
CPT/HCPCS: 99212; G0463

== ENCOUNTER → 2023-04-06 10:35 | Outpatient (POV) | payer MEDICARE, OTHER, SELFPAY | PROVIDERS: PCP Internal Medicine; Visit Provider Dermatology | DX: Z00.00 Encounter for general adult medical examination without abnormal findings (principal) ==

== ENCOUNTER → 2023-05-07 09:54 | Outpatient (CLI) | payer MEDICARE, OTHER, SELFPAY ==
--- NOTE | 2023-05-07 10:03 | MM_ITS ---
PROCEDURE INFORMATION: Exam: MG Bilateral Screening 3D Mammography Exam date and time: 05/07/2023 9:58 AM Age: 83 years old Clinical indication: Screening examination TECHNIQUE: Imaging protocol: Bilateral Screening tomosynthesis and 2D mammography including computer-aided detection (CAD) when performed. COMPARISON: 1. MG MM DIG SCREENING MAMM BI W/CAD 04/16/2022 8:16 AM 2. MG MM DIG SCREENING MAMM BI W/CAD 03/27/2021 1:07 PM FINDINGS: MAMMOGRAPHY: Breast composition: The breasts are almost entirely fatty. Mass: None. Architectural distortion: None. Calcifications: No suspicious calcifications. Asymmetric density: None. Skin thickening: None. Axillary adenopathy: None. IMPRESSION: No mammographic evidence of malignancy. Annual screening is recommended unless otherwise clinically indicated. ASSESSMENT: BI-RADS Category 1: Negative
== END ==
LOC: RAD 09:54
PROVIDERS: PCP Internal Medicine; Visit Provider Internal Medicine
DX: Z12.31 Encounter for screening mammogram for malignant neoplasm of breast (principal)
CPT/HCPCS: 77063; 77067

== ENCOUNTER 2023-05-08 14:45 | Emergency (ER) | payer MEDICARE, OTHER, SELFPAY ==
[2023-05-08 15:20] VITALS: BP 123/68; PULSE 77; RESP 23; TEMP 36.6; O2SAT 95; BMI 25.6
--- NOTE | 2023-05-08 15:22 | ED_ITS ---
Discharge Plan Disposition Patient Disposition: Home, Self-Care Condition: Good Prescriptions Prescriptions: New benzonatate [benzonatate] 100 mg capsule 100 mg PO TIDP PRN (Reason: Cough) Qty: 30 0RF methylprednisolone 4 mg Tablets,Dose Pack 4 mg PO DIRECTED 6 Days Qty: 21 0RF Rx Instructions: Take 1 pack as directed for 6 days levofloxacin [levofloxacin] 500 mg tablet 500 mg PO DAILY Qty: 7 0RF No Action aspirin [Adult Low Dose Aspirin] 81 mg tablet,delayed release (DR/EC) 81 mg PO DAILY omeprazole 40 mg capsule,delayed release(DR/EC) 40 mg PO DAILY 90 Days Qty: 90 vitamin B complex Tablet 1 tab PO DAILY cholecalciferol (vitamin D3) 1,000 unit capsule 1,000 unit PO DAILY Livalo 4 mg tablet 4 mg PO DAILY fluticasone propionate 50 mcg/actuation spray,suspension 50 mcg INTRANASAL DAILY Patient Comments: USE 1 TO 2 SPRAY(S) IN EACH NOSTRIL ONCE DAILY mupirocin 2 % ointment 1 applic topical TID Qty: 22 2RF ipratropium-albuterol 0.5 mg-3 mg(2.5 mg base)/3 mL solution for nebulization 3 ml INHALATION Q6H PRN (Reason: shortness of breath or wheezing) Qty: 180 12RF cetirizine 10 mg tablet 10 mg PO DAILY Patient Comments: TAKE 1 TABLET BY MOUTH ONCE DAILY estradiol 0.01 % (0.1 mg/gram) cream 0.5 g VAGINAL .Twice Weekly Qty: 42.5 0RF Rx Instructions: Blueberry Size twice weekly fluticasone furoate-vilanterol [Breo Ellipta] 100-25 mcg/dose blister with device 1 inh inhalation DAILY Qty: 90 3RF spironolactone 25 MG tablet 25 mg PO DAILY sertraline 100 MG tablet 100 mg PO DAILY clonazepam 0.5 mg tablet 0.5 mg PO DAILY Patient Comments: TAKE 1 TABLET BY MOUTH ONCE DAILY montelukast 10 mg tablet 10 mg PO DAILY methocarbamol 500 mg tablet 500 mg PO TID PRN (Reason: muscle spasm) Qty: 12 0RF calcium carbonate 500 MG tablet,chewable 1,000 mg PO DAILY fluticasone propion-salmeterol [Advair Diskus] 250-50 mcg/dose blister with device 1 inh inhalation BID Referrals Follow up/Referrals: Deshaun Dupree MD [Primary Care Provider] - See instructions Activity Restrictions/Add. Instructions Additional Instructions/Restrictions: Take tylenol for pain or fever. Stop taking the antibiotic that you are already taking. Start the new medications as directed. Follow up with your regular doctor. GO TO THE ER FOR ANY WORSENING SYMPTOMS Clinical Impressions Clinical Impression: Acute bronchitis Instructions Patient Instructions: Acute Bronchitis, DI for Acute Bronchitis Discharge ED Provider: Joseph Mccormick [facility] [place] [facility] [place] General Stated complaint: cough, gentry, runny nose Time Seen by Provider: 05/08/23 15:22 History of Present Illness Provider Complaint: She states that for the past 5 days she has had worsening sinus and chest congestion. Related Data Home Medications Medication Instructions Recorded Confirmed aspirin 81 mg tablet,delayed 81 mg PO DAILY antiplatelet 03/21/18 02/24/23 release (Adult Low Dose Aspirin) cholecalciferol (vitamin D3) 25 1,000 unit PO DAILY Supplement 09/20/18 02/24/23 mcg (1,000 unit) capsule omeprazole 40 mg capsule,delayed 40 mg PO DAILY STOMACH 90 days #90 09/20/18 02/24/23 release caps vitamin B complex 1 tab PO DAILY Supplement 09/20/18 02/24/23 calcium carbonate 500 mg calcium 1,000 mg PO DAILY Supplement 03/23/19 02/24/23 (1,250 mg) chewable tablet spironolactone 25 mg tablet 25 mg PO DAILY blood pressure 06/01/20 02/24/23 fluticasone propionate 50 50 mcg intranasal DAILY allergies 06/17/20 02/24/23 mcg/actuation nasal spray,suspension pitavastatin calcium 4 mg tablet 4 mg PO DAILY Cholesterol 06/17/20 02/24/23 (Livalo) cetirizine 10 mg tablet 10 mg PO DAILY allergies 08/23/20 02/24/23 sertraline 100 mg tablet 100 mg PO DAILY Depression 09/10/21 02/24/23 fluticasone 250 mcg-salmeterol 50 1 inh inhalation BID . 01/05/23 02/24/23 mcg/dose blistr powdr for inhalation (Advair Diskus) clonazepam 0.5 mg tablet 0.5 mg PO DAILY Anxiety 01/24/23 02/24/23 montelukast 10 mg tablet 10 mg PO DAILY Asthma 01/24/23 02/24/23 Previous Rx's Medication Instructions Recorded ipratropium 0.5 mg-albuterol 3 mg 3 ml inhalation Q6H PRN shortness 07/22/20 (2.5 mg base)/3 mL nebulization of breath or wheezing #180 mL soln estradiol 0.01% (0.1 mg/gram) 0.5 g vaginal .Twice Weekly 05/22/22 vaginal cream hormone replacement #42.5 grams methocarbamol 500 mg tablet 500 mg PO TID PRN muscle spasm #12 01/24/23 tabs mupirocin 2 % topical ointment 1 applic topical TID nasal dryness 02/24/23 #22 grams fluticasone furoate 100 1 inh inhalation DAILY #90 ea 05/06/23 mcg-vilanterol 25 mcg/dose inhalation powder (Breo Ellipta) benzonatate 100 mg capsule 100 mg PO TIDP PRN Cough #30 caps 05/08/23 levofloxacin 500 mg tablet 500 mg PO DAILY #7 tabs 05/08/23 methylprednisolone 4 mg tablets in 4 mg PO DIRECTED 6 days #21 tabs 05/08/23 a dose pack Allergies Allergy/AdvReac Type Severity Reaction Status Date / Time [id number] Reductase Allergy Intermediate myalgias Verified 02/24/23 15:13 Inhibitor [Bzpyupp-Vwo-Xki Reductase Inhibitor] tizanidine Allergy Intermediate Hives Verified 02/24/23 15:13 atorvastatin AdvReac Intermediate rash Verified 02/24/23 15:13 [facility] Disclaimer: The information contained in this section may have been updated after the patient was seen, as this information can be updated by other users. Medical History Abnormal EKG Allergic rhinitis Allergic rhinitis Asthma Asthma CAD (coronary artery disease) Chronic cough Dyspnea History of anemia History of gastroesophageal reflux (GERD) Midline cystocele Osteoarthritis Restrictive lung disease Uterine prolapse Surgical History H/O bilateral oophorectomy H/O cataract extraction History of hemiarthroplasty of left shoulder History of kyphoplasty Hx of appendectomy Presence of stent in coronary artery Family History Other Family history of DVT Family history of acute heart failure Family history of cancer Family history of hypertension Family history of myocardial infarction Social History Smoking Status: Never smoker second hand exposure: No alcohol intake: never substance use type: denies use current occupational status: retired Travel in the last 8 weeks: None household members: none housing: house current occupational exposures/hazards: No caffeine: Yes ROS Obtained: Yes All systems reviewed & no additional complaints except as documented Constitutional Constitutional: Reports poor appetite Eyes Eyes: Reports system reviewed and no additional complaints, except as documented ENT Ears, Nose, Mouth, and Throat: Reports as per HPI Cardiovascular Cardiovascular: Reports system reviewed and no additional complaints, except as documented and Denies chest pain Respiratory Respiratory: Denies shortness of breath, Reports chest congestion, Reports cough, Denies stridor and Denies wheezing Gastrointestinal Gastrointestingal: Reports system reviewed and no additional complaints, except as documented; Denies abdominal pain, diarrhea or vomiting Musculoskeletal Musculoskeletal: Reports system reviewed and no additional complaints, except as documented and Denies arthralgias Integumentary/Breasts Skin/Breast: Reports system reviewed and no additional complaints, except as documented and Denies rash Neurologic Neurologic: Denies paresthesias Allergic/Immunologic Allergic/Immunologic: Denies wheezing Physical Exam General General appearance: alert and in no apparent distress Eye Eye exam: Present normal appearance, PERRL and EOMI ENT ENT exam: Present mucous membranes moist and normal external ear exam Expanded ENT Exam External ear exam: Present normal external inspection TM/Canal exam: Bilateral TM: erythema and bulging Nose exam: Absent sinus tenderness Nasal speculum exam: Bilateral: normal Mouth exam: Present normal external inspection; Absent drooling Teeth exam: Present normal inspection Throat exam: Present tonsillar erythema and tonsillomegaly Neck Neck exam: Present normal inspection, full ROM and trachea midline; Absent tenderness, lymphadenopathy or thyromegaly Chest Chest inspection: Present normal inspection and symmetric chest wall rise; Absent tenderness or rash Respiratory Respiratory exam: Present normal lung sounds bilaterally; Absent respiratory distress, wheezes, stridor or accessory muscle use Cardiovascular Cardiovascular exam: Present regular rate, normal rhythm and normal heart sounds Abdominal Exam Abdominal exam: Present soft; Absent distention, tenderness, guarding, rebound or rigidity Extremities Exam Extremities exam: Present normal inspection, full ROM and normal capillary refill; Absent tenderness or calf tenderness Back Exam Back exam: Present normal inspection and full ROM; Absent tenderness Neurological Exam Neurological exam: Present alert and oriented X3 Psychiatric Psychiatric exam: Present normal affect and normal mood Skin Skin exam: Present warm, dry, intact and normal color Lymphatic Lymphatic Findings: no adenopathy Medical Decision Making Medical Records Medical records reviewed: No I reviewed the patient's medical records. Camilo Inquiry Pt receiving controlled substance: No
--- NOTE | 2023-05-08 15:42 | XR_ITS ---
PROCEDURE INFORMATION: Exam: XR Chest Exam date and time: 05/08/2023 3:40 PM Age: 83 years old Clinical indication: Cough; Additional info: Cough, congestion TECHNIQUE: Imaging protocol: Radiologic exam of the chest. Views: 2 views. COMPARISON: 1. CR XR RIBS LT MIN 3V W CXR1V 01/24/2023 8:[address] CHEST WO CON 10/15/2020 7:55 AM FINDINGS: Lungs: No evidence of acute airspace consolidation. No pulmonary edema. Pleural spaces: No significant pleural effusion. No pneumothorax. Heart/Mediastinum: Moderate sized hiatal hernia with partial intrathoracic stomach, unchanged from prior exams. Bones/joints: No evidence of acute osseous abnormality. IMPRESSION: 1. No evidence of acute cardiopulmonary disease. 2. Moderate sized hiatal hernia with partial intrathoracic stomach, unchanged from prior exams.
[2023-05-08 15:51] VITALS: BP 123/68; PULSE 77; RESP 23; TEMP 36.6; O2SAT 95
== END 2023-05-08 16:12 | disposition home or self-care (01) ==
PROVIDERS: Emergency Provider Nurse Practitioner Family; PCP Internal Medicine
DX: J20.9 Acute bronchitis, unspecified (principal); R05.9 Cough, unspecified; R09.81 Nasal congestion; R09.89 Other specified symptoms and signs involving the circulatory and respiratory systems; J45.909 Unspecified asthma, uncomplicated; K21.9 Gastro-esophageal reflux disease without esophagitis; Z95.5 Presence of coronary angioplasty implant and graft
CPT/HCPCS: 71046; 99212; 99214; G0463

== ENCOUNTER 2023-08-30 17:00 | Outpatient (CLI) | payer MEDICARE, OTHER, SELFPAY ==
[2023-08-30 17:33] LABS: Basophils # 0.1 K/mm3 (0-0.2); Basophils % 0.8 % (0.1-2.0); Eosinophils # 0.3 K/mm3 (0.0-0.4); Eosinophils % 4.7 % (0.1-12.0); Hematocrit 46.6 % (37.0-47.0); Hemoglobin 15.2 g/dL (12.2-16.2); Lymphocytes # 1.3 K/mm3 (0.7-4.5); Lymphocytes % 22.2 % (10-50); Mean Corpuscular HGB Conc 32.7 g/dL (31.8-35.4); Mean Corpuscular Hemoglobin 32.4 pg (27.0-31.2); Mean Corpuscular Volume 99.3 fl (81-99); Mean Platelet Volume 8.4 fl (7.4-10.4); Monocytes # 0.5 K/mm3 (0.1-1.0); Monocytes % 8.3 % (1.7-9.3); Neutrophils # 3.8 K/mm3 (1.8-7.8); Platelet Count 258 K/mm3 (142-424); Red Cell Distribution Width 14.6 % (11.5-17.5)
[2023-08-30 19:35] LABS: Alanine Aminotransferase 28 U/L (12-78); Albumin Level 4.1 g/dl (3.5-5.0); Albumin/Globulin Ratio 1.6 (1.1-1.8); Alkaline Phosphatase 92 U/L (38-126); Anion Gap 8.7 mEq/L (5-15); Aspartate Amino Transferase 37 U/L (14-36); Bilirubin,Total 0.4 mg/dl (0.2-1.3); Blood Urea Nitrogen 24 mg/dl (7-17); Calcium 10.1 mg/dl (8.4-10.2); Carbon Dioxide 30 mmol/L (22.0-30.0); Chloride 105 mmol/L (98-107); Chol/HDL Ratio 3.1 (1-3.5); Cholesterol 287 mg/dl (140-200); Estimated Glomerular Filt Rate 48 ml/min (>60); GFR (African American) 58 ML/MIN (>60); Globulin 2.5 g/dL (1.3-3.2); Glucose 105 mg/dl (74-100); HDL Cholesterol 92 mg/dl (40-60); Potassium 4.7 mmoL/L (3.5-5.1); Sodium 139 mmol/L (136-145); Total Protein,Serum 6.6 g/dl (6.3-8.2); Triglycerides 139 mg/dl (30-150); VLDL Cholesterol 28 mg/dL (0-40)
[2023-08-30 20:11] LABS: Thyroid Stimulating Hormone 2.64 uIU/mL (0.465-4.68)
[2023-08-30 20:48] LABS: Vitamin B12 583 pg/mL (239-931)
[2023-08-30 20:51] LABS: Folate > 20.00 ng/mL
== END 2023-08-30 23:59 | disposition home or self-care (01) ==
LOC: LAB.DROPOF 17:01
PROVIDERS: PCP Internal Medicine; Visit Provider Internal Medicine
DX: D50.9 Iron deficiency anemia, unspecified (principal); I11.9 Hypertensive heart disease without heart failure; I25.10 Atherosclerotic heart disease of native coronary artery without angina pectoris; E78.5 Hyperlipidemia, unspecified; M62.838 Other muscle spasm; M15.0 Primary generalized (osteo)arthritis; M81.0 Age-related osteoporosis without current pathological fracture; Z68.26 Body mass index [BMI] 26.0-26.9, adult
CPT/HCPCS: 80053; 80061; 82607; 82746; 83735; 84443; 85025

== ENCOUNTER 2023-09-07 12:46 | Outpatient (CLI) | payer MEDICARE, OTHER, SELFPAY ==
[2023-09-07] MEDS: ZOLEDRONIC ACID/MANNITOL-WATER 5 MG/100 ML PGGYBK.BTL 400 MG IV (13:04)
[2023-09-07 13:10] VITALS: BP 124/65; PULSE 74; RESP 18; TEMP 36.7; O2SAT 98
[2023-09-07] MEDS: 0.9 % SODIUM CHLORIDE 50 ML 25 ML IV (13:10)
[2023-09-07 13:25] VITALS: BP 121/68; PULSE 76
== END 2023-09-07 13:30 | disposition home or self-care (01) ==
LOC: INF 12:48
PROVIDERS: PCP Internal Medicine; Visit Provider Internal Medicine
DX: M81.0 Age-related osteoporosis without current pathological fracture (principal)
CPT/HCPCS: 96374; J3489

== ENCOUNTER 2023-09-08 08:02 | Outpatient (CLI) | payer MEDICARE, OTHER, SELFPAY ==
--- NOTE | 2023-09-08 08:05 | MR_ITS ---
FINAL REPORT TECHNIQUE: Multiplanar MR without gadolinium enhancement CLINICAL HISTORY: LOWER BACK PAIN COMPARISON: 05/20/2022 FINDINGS: Sagittal images show normal vertebral height. Alignment is normal. There are chronic compression fractures of T11, L2, and L3, with post kyphoplasty changes at these levels. No acute bone marrow edema to suggest an acute fracture is seen. There is significant chronic retropulsion of bone involving the superior endplate of L2. T12-L1: Small annular bulge, similar to the prior exam. L1-2: Retropulsed bone from the superior endplate of L2 with moderate borderline central canal stenosis, stable. L2-3: Minimal annular bulge is present with mild facet osteoarthropathy, stable. L3-4: Minimal annular bulge is present without evidence of canal stenosis or neural foraminal narrowing. L4-5: No focal protrusion is present. There is ligamentum flavum hypertrophy with mild bilateral neural foraminal narrowing. L5-S1: No evidence of significant canal stenosis or neural foraminal narrowing is present. IMPRESSION: Post kyphoplasty changes of T11, L2, and L3, mild superior endplate of L2 retropulsion as described, similar to the prior exam. Mild degenerative changes, all stable since the prior MRI of 2022. Reviewed, Interpreted and Dictated by Darcy Whitten MD Transcribed by Annia Ortiz Authenticated and [facility]
--- NOTE | 2023-09-08 08:06 | MR_ITS ---
FINAL REPORT TECHNIQUE: Multiplanar MR without contrast was obtained of the pelvis with attention to the sacrum/coccyx. CLINICAL HISTORY: LOWER BACK PAIN COMPARISON: None FINDINGS: The marrow signal pattern is normal. There is no evidence of avascular necrosis. No osteochondral defects are present. Physiologic joint effusion is seen. Labrum shows a normal MR appearance. There is no evidence of sacral insufficiency fracture. Adjacent soft tissues are unremarkable. There is no pelvic mass or adenopathy. IMPRESSION: Unremarkable exam Reviewed, Interpreted and Dictated by Darcy Whitten MD Transcribed by Hannah Harry Authenticated and [facility]
== END 2023-09-08 23:59 | disposition home or self-care (01) ==
LOC: RAD 08:02
PROVIDERS: PCP Internal Medicine; Visit Provider Orthopaedic Surgery
DX: M53.3 Sacrococcygeal disorders, not elsewhere classified (principal); M54.59 Other low back pain
CPT/HCPCS: 72148; 72195; 76376

== ENCOUNTER 2023-10-18 12:58 | Outpatient (CLI) | payer MEDICARE, OTHER, SELFPAY ==
[2023-10-18] MEDS: INCLISIRAN SODIUM 284 MG/1.5 ML SYRINGE SQ (13:10)
[2023-10-18 13:25] VITALS: BP 135/67; PULSE 70; RESP 18; TEMP 36.8; O2SAT 97
== END 2023-10-18 13:25 | disposition home or self-care (01) ==
LOC: INF 12:59
PROVIDERS: PCP Internal Medicine; Visit Provider Internal Medicine
DX: E78.5 Hyperlipidemia, unspecified (principal); Z79.899 Other long term (current) drug therapy
CPT/HCPCS: 96372; J1306

== ENCOUNTER 2023-10-21 13:00 | Outpatient (RCR) | payer MEDICARE, OTHER, SELFPAY | END 2023-10-21 14:20 | disposition home or self-care (01) | LOC: PT 13:00 | PROVIDERS: Visit Provider Orthopaedic Surgery | DX: M54.50 Low back pain, unspecified (principal) | CPT/HCPCS: 97010; 97110; 97163; 97164 ==

== ENCOUNTER 2023-10-27 09:57 | Outpatient (CLI) | payer MEDICARE, OTHER, SELFPAY ==
--- NOTE | 2023-10-27 10:03 | XR_ITS ---
FINAL REPORT CLINICAL HISTORY: cough x 1 month hx of asthma COMPARISON: 01/24/2023 FINDINGS: There is chronic airspace opacity in the medial right lung base, probably atelectasis or scar. The upper lobes are clear. Large hiatal hernia is identified. There is no evidence of effusion or other pleural disease. The mediastinum has a normal appearance. The cardiac silhouette is unremarkable. IMPRESSION: Chronic changes. Reviewed, Interpreted and Dictated by Darcy Whitten MD Transcribed by Martina Avila Authenticated and [facility]
== END 2023-10-27 23:59 | disposition home or self-care (01) ==
LOC: RAD 09:58
PROVIDERS: PCP Internal Medicine; Visit Provider Internal Medicine Pulmonary Disease
DX: R05.3 Chronic cough (principal)
CPT/HCPCS: 71046

== ENCOUNTER 2024-01-15 08:09 | Emergency (ER) | payer MEDICARE, OTHER, SELFPAY ==
[2024-01-15 08:15] VITALS: BP 139/73; PULSE 62; RESP 20; TEMP 36.7; O2SAT 97; BMI 25.2
--- NOTE | 2024-01-15 08:31 | ED_ITS ---
Discharge Plan Disposition Patient Disposition: Home, Self-Care Condition: Good Prescriptions Prescriptions: New prednisone 5 mg tablet 5 mg PO BID 5 Days Qty: 10 0RF No Action aspirin [Adult Low Dose Aspirin] 81 mg tablet,delayed release (DR/EC) 81 mg PO DAILY omeprazole 40 mg capsule,delayed release(DR/EC) 40 mg PO DAILY 90 Days Qty: 90 vitamin B complex Tablet 1 tab PO DAILY cholecalciferol (vitamin D3) 1,000 unit capsule 1,000 unit PO DAILY fluticasone propionate 50 mcg/actuation spray,suspension 50 mcg INTRANASAL DAILY Patient Comments: USE 1 TO 2 SPRAY(S) IN EACH NOSTRIL ONCE DAILY azelastine 137 mcg (0.1 %) aerosol,spray 1 spray intranasal ONCE Rx Instructions: administer into each nostril albuterol sulfate [Ventolin HFA] 90 mcg/actuation HFA aerosol inhaler 2 inh inhalation Q6H PRN (Reason: shortness of breath or wheezing) 90 Days Qty: 18 3RF montelukast 10 mg tablet 10 mg PO DAILY Qty: 90 1RF ipratropium-albuterol 0.5 mg-3 mg(2.5 mg base)/3 mL solution for nebulization 3 ml INHALATION Q6H PRN (Reason: shortness of breath or wheezing) Qty: 180 3RF fluticasone furoate-vilanterol [Breo Ellipta] 100-25 mcg/dose blister with device 1 inh inhalation DAILY Qty: 90 3RF spironolactone 25 MG tablet 25 mg PO DAILY sertraline 100 MG tablet 100 mg PO DAILY benzonatate 100 mg capsule 4 mg PO TIDP PRN (Reason: Cough) Patient Comments: TAKE 1 CAPSULE BY MOUTH THREE TIMES DAILY NEEDED FOR COUGH pitavastatin calcium 4 mg Tablet 4 mg PO HS calcium carbonate 500 MG tablet,chewable 1,000 mg PO DAILY Referrals Follow up/Referrals: Deshaun Dupree MD [Primary Care Provider] - See instructions Activity Restrictions/Add. Instructions Additional Instructions/Restrictions: Humidifier/vaporizer/hot steamy shower Follow-up with primary care tomorrow. Follow-up immediately in the ER of the [facility] for new or worsening symptoms or no noticeable improvement over the next 48-72 hours. Stop smoking Inhaler every 4-6 hours as needed. Should help open airways improved cough, wheezing, shortness of breath Tessalon Perles will not cause drowsiness to use at bedtime to help stop cough so that she can get some sleep Start steroids today. Helps with inflammation therefore coughing and wheezing. Follow directions on package. Clinical Impressions Clinical Impression: Acute bronchitis Instructions Patient Instructions: Acute Bronchitis Print Language Print Language: Dominican Discharge ED Provider: Demetrice ([facility])William [facility] [place] [facility] [place] General Stated complaint: pain on left side of back, cough Mode of Arrival: Ambulatory Source of Information: Patient Limitations: No Limitations Time Seen by Provider: 01/15/24 08:31 Description of Symptoms (Recalled from Triage Doc. by RN): PATIENT C/O COUGH WITH WHITE MUCOUS X 2 WEEKS AND LEFT BACK PAIN FROM COUGHIN HEENT Symptoms (Recalled from RN notes): No Resp Symptoms (Recalled from RN notes): Yes Skin Symptoms (Recalled from RN notes): No MS Symptoms (Recalled from RN notes): Yes Functional Status (Recalled from RN notes): WNL History of Present Illness Provider Complaint: 83 yr old female presents for cough, pain in back from coughing and muscle drawing Related Data Home Medications ?Medication ?Instructions ?Recorded ?Confirmed aspirin 81 mg tablet,delayed 81 mg PO DAILY antiplatelet 03/21/18 01/15/24 release (Adult Low Dose Aspirin) cholecalciferol (vitamin D3) 25 1,000 unit PO DAILY Supplement 09/20/18 01/15/24 mcg (1,000 unit) capsule omeprazole 40 mg capsule,delayed 40 mg PO DAILY STOMACH 90 days #90 09/20/18 01/15/24 release caps vitamin B complex 1 tab PO DAILY Supplement 09/20/18 01/15/24 calcium carbonate 1,000 mg PO DAILY Supplement 03/23/19 01/15/24 spironolactone 25 mg tablet 25 mg PO DAILY blood pressure 06/01/20 01/15/24 fluticasone propionate 50 50 mcg intranasal DAILY allergies 06/17/20 01/15/24 mcg/actuation nasal spray,suspension sertraline 100 mg tablet 100 mg PO DAILY Depression 09/10/21 01/15/24 azelastine 137 mcg (0.1 %) nasal 1 spray intranasal ONCE 05/20/23 01/15/24 spray benzonatate 100 mg capsule 4 mg PO TIDP PRN Cough 01/15/24 01/15/24 pitavastatin calcium 4 mg tablet 4 mg PO HS 01/15/24 01/15/24 Previous Rx's ?Medication ?Instructions ?Recorded albuterol sulfate 90 mcg/actuation 2 inh inhalation Q6H PRN shortness 09/20/23 aerosol inhaler (Ventolin HFA) of breath or wheezing 90 days #18 grams montelukast 10 mg tablet 10 mg PO DAILY Asthma #90 tabs 10/15/23 ipratropium 0.5 mg-albuterol 3 mg 3 ml inhalation Q6H PRN shortness 10/25/23 (2.5 mg base)/3 mL nebulization of breath or wheezing #180 mL soln fluticasone furoate 100 1 inh inhalation DAILY #90 ea 11/17/23 mcg-vilanterol 25 mcg/dose inhalation powder (Breo Ellipta) prednisone 5 mg tablet 5 mg PO BID 5 days #10 tabs 01/15/24 Allergies Allergy/AdvReac Type Severity Reaction Status Date / Time [id number] Reductase Allergy Intermediate myalgias Verified 01/06/24 10:55 Inhibitor [Aagosyx-Lsd-Jra Reductase Inhibitor] tizanidine Allergy Intermediate Hives Verified 01/06/24 10:55 atorvastatin AdvReac Intermediate rash Verified 01/06/24 10:55 Worker's Comp Is this a Worker's Comp case?: No [facility] Disclaimer: The information contained in this section may have been updated after the patient was seen, as this information can be updated by other users. Medical History , [employer]) Acute bacterial sinusitis Allergic rhinitis Restrictive lung disease Chronic cough Allergic rhinitis Asthma Uterine prolapse Midline cystocele Osteoarthritis History of gastroesophageal reflux (GERD) History of anemia Asthma Abnormal EKG CAD (coronary artery disease) Dyspnea Surgical History , [employer]) H/O cataract extraction H/O bilateral oophorectomy Hx of appendectomy History of hemiarthroplasty of left shoulder History of kyphoplasty Presence of stent in coronary artery Family History , [employer]IST) Family history of DVT Family history of acute heart failure Family history of cancer Family history of hypertension Family history of myocardial infarction Social History , [employer]IST) Smoking Status: Never smoker second hand exposure: No alcohol intake: never substance use type: denies use current occupational status: retired Travel in the last 8 weeks: None household members: none housing: house current occupational exposures/hazards: No caffeine: Yes ROS Obtained: Yes All systems reviewed & no additional complaints except as documented Constitutional Constitutional: Reports system reviewed and no additional complaints, except as documented Eyes Eyes: Reports system reviewed and no additional complaints, except as documented ENT Ears, Nose, Mouth, and Throat: Reports system reviewed and no additional complaints, except as documented Cardiovascular Cardiovascular: Reports system reviewed and no additional complaints, except as documented Respiratory Respiratory: Reports system reviewed and no additional complaints, except as documented, Reports as per HPI, Reports cough, Reports non-productive cough and Reports pain with cough Gastrointestinal Gastrointestingal: Reports system reviewed and no additional complaints, except as documented Musculoskeletal Musculoskeletal: Reports system reviewed and no additional complaints, except as documented Integumentary/Breasts Skin/Breast: Reports system reviewed and no additional complaints, except as documented Neurologic Neurologic: Reports system reviewed and no additional complaints, except as documented Endocrine Endocrine: Reports system reviewed and no additional complaints, except as documented Allergic/Immunologic Allergic/Immunologic: Reports system reviewed and no additional complaints, except as documented Physical Exam General General appearance: alert and in no apparent distress Eye Eye exam: Present normal appearance and PERRL ENT ENT exam: Present normal exam, normal oropharynx, mucous membranes moist and TM's normal bilaterally Respiratory Respiratory exam: Present wheezes Cardiovascular Cardiovascular exam: Present regular rate and normal rhythm Neurological Exam Neurological exam: Present alert and oriented X3 Skin Skin exam: Present warm and intact Lymphatic Lymphatic Findings: no adenopathy Medical Decision Making Medical Records Medical records reviewed: Yes I reviewed the patient's medical records. Camilo Inquiry Pt receiving controlled substance: No Camilo was queried for this patient: No Vital Signs: 01/15/24 08:15 Temperature 98.0 F Temperature Source Oral Pulse Rate [Right Brachial] 62 Respiratory Rate 20 Blood Pressure [Right Arm] 139/73 Blood Pressure Mean [Right Arm] 95 Blood Pressure Source [Right Arm] Automatic Cuff Blood Pressure Position [Right Arm] Sitting 02 Sat by Pulse Oximetry 97 Oxygen Delivery Method Room Air Lab Data Lab results reviewed: Yes I reviewed the patient's lab results. 01/15/24 09:10 01/15/24 09:10
--- NOTE | 2024-01-15 08:32 | XR_ITS ---
PROCEDURE INFORMATION: Exam: XR Chest Exam date and time: 01/15/2024 8:27 AM Age: 83 years old Clinical indication: Cough and shortness of breath TECHNIQUE: Imaging protocol: Radiologic exam of the chest. Views: 2 views. COMPARISON: CR XR CHEST 2V 10/27/2023 10:05 AM FINDINGS: Lungs: There are chronic airspace opacities in the left lower lobe with obscuration of the left hemidiaphragm. Right lung is clear. Pleural spaces: There is no pneumothorax or pleural effusion. Heart/Mediastinum: There is a hiatal hernia. There is no cardiomegaly. Bones/joints: Osseous structures demonstrate no acute abnormalities. There are postop changes of kyphoplasty in the thoracic spine and lumbar spine. IMPRESSION: 1. Chronic airspace opacities in the left lower lobe, likely related to atelectasis. 2. Hiatal hernia.
[2024-01-15 09:22] LABS: Basophils # 0.1 K/mm3 (0-0.2); Basophils % 1.4 % (0.1-2.0); Eosinophils # 0.1 K/mm3 (0.0-0.4); Eosinophils % 2.4 % (0.1-12.0); Hematocrit 50.3 % (37.0-47.0); Hemoglobin 15.2 g/dL (12.2-16.2); Lymphocytes # 1.3 K/mm3 (0.7-4.5); Lymphocytes % 21.7 % (10-50); Mean Corpuscular HGB Conc 30.2 g/dL (31.8-35.4); Mean Corpuscular Hemoglobin 29.7 pg (27.0-31.2); Mean Corpuscular Volume 98.4 fl (81-99); Mean Platelet Volume 8.1 fl (7.4-10.4); Monocytes # 0.4 K/mm3 (0.1-1.0); Monocytes % 6.2 % (1.7-9.3); Neutrophils # 4.1 K/mm3 (1.8-7.8); Neutrophils % 68.3 % (37.0-80.0); Platelet Count 359 K/mm3 (142-424); Red Blood Count 5.11 M/mm3 (4.20-5.40); Red Cell Distribution Width 15.1 % (11.5-17.5); White Blood Count 6.1 K/mm3 (4.8-10.8)
[2024-01-15 09:24] LABS: Albumin Level 4.4 g/dl (3.5-5.0); Chloride 107 mmol/L (98-107); Potassium 4.9 mmoL/L (3.5-5.1); Sodium 138 mmol/L (136-145)
[2024-01-15 09:27] LABS: Alanine Aminotransferase 37 U/L (12-78); Albumin/Globulin Ratio 1.5 (1.1-1.8); Alkaline Phosphatase 85 U/L (38-126); Anion Gap 6.9 mEq/L (5-15); Aspartate Amino Transferase 56 U/L (14-36); Bilirubin,Total 0.8 mg/dl (0.2-1.3); Blood Urea Nitrogen 23 mg/dl (7-17); Calcium 9.7 mg/dl (8.4-10.2); Carbon Dioxide 29 mmol/L (22.0-30.0); Creatinine Clearance Estimated 36 mL/min (50-200); Estimated Glomerular Filt Rate 43 ml/min (>60); GFR (African American) 52 ML/MIN (>60); Globulin 2.9 g/dL (1.3-3.2); Glucose 84 mg/dl (74-100); Total Protein,Serum 7.3 g/dl (6.3-8.2)
[2024-01-15 09:32] LABS: Lactic Acid < 0.5 mmol/L (0.7-2.1)
[2024-01-15 10:00] VITALS: BP 139/73; PULSE 62; RESP 20; TEMP 36.7; O2SAT 97
== END 2024-01-15 10:05 | disposition home or self-care (01) ==
PROVIDERS: Emergency Provider Nurse Practitioner Family; PCP Internal Medicine
DX: J20.9 Acute bronchitis, unspecified (principal); M54.6 Pain in thoracic spine
CPT/HCPCS: 71046; 80053; 83605; 85025; 99212; 99214; G0463

== ENCOUNTER 2024-01-18 06:57 | Outpatient (CLI) | payer MEDICARE, OTHER, SELFPAY ==
--- NOTE | 2024-01-18 06:58 | CT_ITS ---
FINAL REPORT TECHNIQUE: Axial CT images were performed from the lung apices through the upper abdomen. Coronal and sagittal reformats were submitted. This study was performed with techniques to keep radiation doses as low as reasonably achievable (ALARA). Individualized dose reduction techniques using automated exposure control or adjustment of mA and/or kV according to the patient's size were employed. CLINICAL HISTORY: Recurrent PNM COMPARISON: 10/15/2020 (report only, radiographs not available for comparison) FINDINGS: There is no axillary adenopathy. There is no hilar or mediastinal adenopathy. A large hiatal hernia is present. There is ectasia of the ascending aorta, which measures 40 mm in diameter, was 38 mm on the prior report available from 2020. Heart size is normal. Severe coronary artery calcifications are present. There is no pericardial or pleural effusion. Mild bibasilar atelectasis or scar is present, with mild changes of interstitial fibrosis. There is evidence of a prior T11 kyphoplasty. There is severe degenerative change of the thoracic spine, with multilevel anterior fusion consistent with DISH. IMPRESSION: No acute process. Large hiatal hernia remains present. Severe coronary artery calcifications with ectasia of the ascending aorta, 40 mm in diameter, was 38 mm on the prior exam of 2020. Mild bibasilar atelectasis or scar is present, with mild changes of interstitial fibrosis. Reviewed, Interpreted and Dictated by Andrae Hernández III, MD Transcribed by Annia Ortiz Authenticated and [facility]
== END 2024-01-18 23:59 | disposition home or self-care (01) ==
LOC: RAD 06:58
PROVIDERS: PCP Internal Medicine; Visit Provider Internal Medicine Pulmonary Disease
DX: R91.8 Other nonspecific abnormal finding of lung field (principal)
CPT/HCPCS: 71250; 87070; 87205

== ENCOUNTER 2024-01-21 13:26 | Outpatient (CLI) | payer MEDICARE, OTHER, SELFPAY ==
[2024-01-21 13:45] VITALS: BP 124/73; PULSE 69; RESP 18; TEMP 36.8; O2SAT 98
[2024-01-21] MEDS: INCLISIRAN SODIUM 284 MG/1.5 ML SYRINGE SQ (13:45)
== END 2024-01-21 13:55 | disposition home or self-care (01) ==
LOC: INF 13:28
PROVIDERS: PCP Internal Medicine; Visit Provider Internal Medicine
DX: I25.10 Atherosclerotic heart disease of native coronary artery without angina pectoris (principal)
CPT/HCPCS: 96372; J1306

== ENCOUNTER 2024-05-30 11:46 | Outpatient (CLI) | payer MEDICARE, SELFPAY ==
[2024-05-30 12:46] LABS: 25-OH Vitamin D, Total 60.2 ng/mL (30-100)
== END 2024-05-30 23:59 | disposition home or self-care (01) ==
LOC: LAB 11:49
PROVIDERS: PCP Internal Medicine; Visit Provider Allergy & Immunology
DX: E55.9 Vitamin D deficiency, unspecified (principal)
CPT/HCPCS: 36415; 82306

== ENCOUNTER 2024-08-18 17:26 | Emergency (ER) | payer OTHER, MEDICARE, SELFPAY ==
[2024-08-18 17:35] VITALS: BP 167/85; PULSE 63; O2SAT 95
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
[2024-08-18 17:46] VITALS: BP 167/58; PULSE 66; RESP 17; TEMP 36.8; O2SAT 95; BMI 36.3
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
[2024-08-18] MEDS: METHOCARBAMOL 500MG TABLET 500 MG PO (18:29)
[2024-08-18] MEDS: IBUPROFEN 400 MG TABLET 800 MG PO (18:29)
[2024-08-18] MEDS: ACETAMINOPHEN 500MG TAB 1000 MG PO (18:30)
[2024-08-18 18:35] VITALS: BP 194/87; PULSE 60; O2SAT 98
[2024-08-18 19:00] VITALS: BP 192/84; PULSE 58; O2SAT 97
[2024-08-18 19:25] VITALS: BP 192/84; PULSE 78; RESP 14; TEMP 36.6; O2SAT 100
== END 2024-08-18 19:27 | disposition home or self-care (01) ==
PROVIDERS: Emergency Provider Emergency Medicine; PCP Internal Medicine
DX: R07.89 Other chest pain (principal); V49.40XA Driver injured in collision with unspecified motor vehicles in traffic accident, initial encounter
CPT/HCPCS: 99285; 71250; 74176

== ENCOUNTER 2024-08-24 13:37 | Outpatient (CLI) | payer MEDICARE, SELFPAY ==
--- NOTE | 2024-08-24 14:50 | PC.NURSE ---
[id number]-contacted md office about new auth for leqvio injection; office to call back when auth finished per daniella. pt d/c home. pt did not receive injection.
== END 2024-08-24 14:50 | disposition home or self-care (01) ==
LOC: INF 13:38
PROVIDERS: PCP Internal Medicine; Visit Provider Internal Medicine
DX: D50.9 Iron deficiency anemia, unspecified (principal)

== ENCOUNTER 2024-09-29 14:02 | Outpatient (CLI) | payer MEDICARE, SELFPAY ==
[2024-09-29 14:10] VITALS: BP 142/69; PULSE 60; RESP 16; O2SAT 97
[2024-09-29] MEDS: INCLISIRAN SODIUM 284 MG/1.5 ML SYRINGE SUBCUT (14:11)
== END 2024-09-29 14:25 | disposition home or self-care (01) ==
LOC: INF 14:03
PROVIDERS: PCP Internal Medicine; Visit Provider Internal Medicine
DX: I25.10 Atherosclerotic heart disease of native coronary artery without angina pectoris (principal); E78.5 Hyperlipidemia, unspecified
CPT/HCPCS: 96372; J1306

== ENCOUNTER 2024-11-09 11:24 | Outpatient (CLI) | payer MEDICARE, SELFPAY ==
--- OUTSIDE RECORDS SUMMARY | 2024-11-09 11:26 | XMS_ITS | Clinical Summary ---
Author Organization [facility] [place] [address] Care Team Providers Care Quality Director Name Role Phone Unavailable Primary Care Provider Unavailabl e Social History Tobacco Use Types Packs/Day Years Used Date Smoking Tobacco: Never Assessed Comments Unknown Sex and Gender Information Value Date Recorded Sex Assigned at Not on file Legal Sex Female 1:58 PM EST Gender Identity Not on file Sexual Orientation Not on file Plan of Treatment Health Maintenance Due Date Last Done Comments Annual Wellness Exam 02/15/1944 Bone Density Screening 2006 Pneumococcal Vaccine 50+ (2 of 2 - PCV20 or PCV21) 08/05/2017 08/05/2016 COVID-19 Vaccine ( season) 2024 10/21/2021, 01/15/2021, 06/21/2020, Additional history exists Influenza Vaccine (Season Ended) 2025 DTaP/TDaP/Td (2 - Td or Tdap) 11/24/2032 11/24/2022, 07/11/1996 Zoster Completed 11/05/2022, 08/25/2022 RSV or 60+ Completed 04/04/2023 Hepatitis B Vaccine Aged Out No longe r eligible based on patient's age to complete this topic Meningococcal B Vaccine Aged Out No l onger eligible based on patient's age to complete this topic
--- NOTE | 2024-11-09 11:28 | XR_ITS ---
FINAL REPORT CLINICAL HISTORY: Right posterior shoulder pain with movement COMPARISON: 09/01/2021 FINDINGS: RIGHT SHOULDER Three views were obtained. There is no fracture or dislocation. There are moderate hypertrophic changes of the AC joint. The glenohumeral joint is intact. No soft tissue abnormality is identified. IMPRESSION: Moderate hypertrophic changes of the AC joint. Reviewed, Interpreted and Dictated by Santhosh Frazier MD Transcribed by Martina Avila Authenticated and . [facility]
== END 2024-11-09 23:59 | disposition home or self-care (01) ==
LOC: RAD 11:25
PROVIDERS: PCP Internal Medicine; Visit Provider Internal Medicine
DX: M19.011 Primary osteoarthritis, right shoulder (principal)
CPT/HCPCS: 73030

== ENCOUNTER 2024-12-19 15:56 | Outpatient (CLI) | payer MEDICARE, SELFPAY ==
--- OUTSIDE RECORDS SUMMARY | 2024-12-19 15:59 | XMS_ITS | Clinical Summary ---
Author Organization [facility] Address [address] [place] [address] Care Team Providers Care Research Engineer Name Role Phone Deshaun Dupree MD Primary Care Provider [phone] Allergies Active Allergy Reactions Criticality Noted Date Comments Atorvastatin 04/30/2016 Pravastatin 04/30/2016 Ezetimibe 04/30/2016 Simvastatin 04/30/2016 Medications sertraline (ZOLOFT) 100 MG tablet Take 100 mg by mouth Daily. 04/28/2016 Active amLODIPine (NORVASC) 5 MG tablet Take 5 mg by mouth Daily. 04/13/2016 Active aspirin 81 MG EC tablet Take 81 mg by mouth Daily. Active loratadine (ALLERGY RELIEF) 10 MG tablet Take 10 mg by mouth Daily. Active Multiple Vitamins-Mineral s (MULTI FOR HER 50+ PO) Take 1 tablet by mouth Daily. Active fluticasone (FLOVENT HFA) 110 MCG/ACT inhaler Inhale 1 puff 2 (Two) Times a Day. Active omeprazole (priLOSEC) 40 MG capsule Take 40 mg by mouth As Needed. Active montelukast (SINGULAIR) 10 MG tablet Take 10 mg by mouth Every Night. 03/06/2018 Active Pitavastatin Calcium (LIVALO) 4 MG tablet Take 1 tablet by mouth 2 (Two) Times a Week. Active Active Problems Problem Noted Date Diagnosed Date CAD (coronary artery disease) Overview (04/30/2016): a. In 2009, 2.75 x 12 Xience ESTEE to LAD per Dr. Frank. b. October 2014 echocardiogram within normal limits. RVSP 25-30. Dyspnea Overview (04/30/2016): multifactorial: Had a CT of the chest, TFTs, and reactive airway disease described by neurologist. 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 Second toe, questionably Raynaud s . Dyslipidemia Overview (04/30/2016): on statin Hypertension Family History Medical History Relation Name Comments Heart attack Brother Rectal cancer Father Kidney failure Mother Other Mother internal bleedi ng Emphysema Sister Relation Name Status Comments Brother Alive Father (Age 75) Mother (Age 34) Sister (Age 59) Social History Tobacco Use Types Packs/Day Years Used Date Smoking Tobacco: Former Cigarettes Q uit: 06/02/1961 Smokeless Tobacco: Never Alcohol Use Standard Drinks/Week Comments No 0 (1 standard drink = 0.6 oz pur e alcohol) Abuse Screen Answer Date Recorded Unsafe at Home or Work/School Not on file Feels Threatened by Someone? Not on file 01/2023 Does Anyone Keep You from Co ntacting Others or Doint Things Outside the Home? Not on file 02/15/2023 Physical Sign of Abuse Present Not on file 1 Housing Stability Answer Date Recorded Current Living Arrangements Not on file 01/2023 Potentially Unsafe Housing Conditions Not on juventino e 02/15/2023 Family and Community Support Answer Giancarlo e Recorded Help with Day-to-Day Activities Not on file 02/15/2023 Lonely or Isolated Not on file 02/15/2023 Employment Answer Date Recorded Do you want help finding or keeping work or a sayda b? Not on file 02/15/2023 Disabilities Answer Date Recorded Concentrating, Remembering, or Making Decisions Difficulty Not on file 02/15/2023 Doing Errands Independently Difficulty Not on fi le 02/15/2023 Education Answer Date Recorded Help with school or training? Not on file Preferred Language Not on file 02/15/2023 Comments Unknown Sex and Gender Information Value Date Recorded Sex Assigned at Not on file Legal Sex Female 1:24 PM EDT Gender Identity Not on file Sexual Orientation Not on file Last Filed Vital Signs Vital Sign Reading Time Taken Comments Blood Pressure 114/62 12/20/2019 9:03 AM EDT Pulse 79 12/20/2019 9:03 AM EDT Temperature 36.6 C (97.8 F) 12/04/2014 11:05 AM EDT Respiratory Rate 16 12/04/2014 11:05 AM EDT Oxygen Saturation 96% 12/20/2019 9:03 AM EDT Inhaled Oxygen Concentration - - Weight 61.4 kg (135 lb 6.4 oz) 12/20/2019 9:03 A M EDT Height 157.5 cm (5' 2 ) 12/20/2019 9:03 AM EDT Body Mass Index 24.76 12/20/2019 9:03 AM EDT Plan of Treatment Health Maintenance Due Date Last Done Comments ZOSTER VACCINE (1 of 2) 1991 TDAP/TD VACCINES (2 - Tdap) 07/11/2006 07/11/1996 RSV Vaccine - Adults (1 - 1- dose 75+ series) 02/15/2016 ANNUAL PHYSICAL 04/06/2017 Pneumococcal Vaccine 50+ (2 of 2 - PPSV23) 08/05/2017 08/05/2016 DXA SCAN 03/04/2020 03/04/2018, 08/06/2015 COVID-19 Vaccine (1 - 2023-2 5 season) 2024 INFLUENZA VACCINE 02/07/2025 02/26/2020, , 02/17/2019, Additional history exists Insurance MEDICARE A & B Member Subscriber Plan / Payer (Ef fective 2006-Present) Name:Roseanne Andino Member ID:[id number] Relation to Subscriber:Self Name:Roseanne Andino Subscriber ID:[id number] Payer ID:[id number] Group ID:Not on file Type:Not on file Address: [address] Care Teams Research Engineer Relationship Specialty Start Date End Date Deshaun Dupree MD [address] [place] [address] [address] PCP - General 07/26/15
--- OUTSIDE RECORDS SUMMARY | 2024-12-19 15:59 | XMS_ITS | Clinical Summary ---
Author Organization [facility] [place] [address] Care Team Providers Care Rib Cutter Name Role Phone Unavailable Primary Care Provider [...] 01/15/2021, 06/21/2020, Additional history exists Influenza Vaccine (#1) 2025 DTaP/TDaP/Td (2 - Td or Tdap) 11/24/2032 11/24/2022, 07/11/1996 Zoster Completed 11/05/2022, 08/25/2022 RSV or 60+ Completed 04/04/2023 Hepatitis B Vaccine Aged Out No longe r eligible based on patient's age to complete this topic Meningococcal B Vaccine Aged Out No l onger eligible based on patient's age to complete this topic
[2024-12-20 15:17] LABS: Antinuclear Antibodies (ANA) Negative (Negative)
== END 2024-12-19 23:59 | disposition home or self-care (01) ==
LOC: LAB 15:57
PROVIDERS: PCP Internal Medicine; Visit Provider Allergy & Immunology
DX: J30.1 Allergic rhinitis due to pollen (principal); R21 Rash and other nonspecific skin eruption
CPT/HCPCS: 36415; 86038

== ENCOUNTER 2025-05-05 09:27 | Outpatient (CLI) | payer MEDICARE, SELFPAY ==
[2025-05-05 20:09] LABS: Coronavirus 19, PCR Not Detected (NotDetected); Influenza A, PCR Not Detected (NotDetected); Influenza B, PCR Not Detected (NotDetected)
--- OUTSIDE RECORDS SUMMARY | 2025-05-07 09:41 | XMS_ITS | Clinical Summary ---
Author Organization [facility] Address [address] [place] [address] Care Team Providers Care Router Tender Name Role Phone Deshaun Dupree MD Primary Care Provider [phone] Allergies Active Allergy Reactions Criticality Noted Date [...] VACCINE (1 of 2) 1991 TDAP/TD VACCINES (1 - Tdap) 07/12/1996 07/11/1996 RSV Vaccine - Adults (1 - 1- dose 75+ series) 02/15/2016 ANNUAL PHYSICAL 04/06/2017 Pneumococcal Vaccine 50+ (2 of 2 - PCV20 or PCV21) 08/05/2017 08/05/2016 DXA SCAN 03/04/2020 03/04/2018, 08/06/2015 INFLUENZA VACCINE 12/08/2024 02/26/2020, , 02/17/2019, Additional history exists COVID-19 Vaccine ( - 2023-2 5 season) 2025 Insurance MEDICARE A & B Member Subscriber Plan / Payer (Ef fective 2006-Present) Name:Roseanne Andino Member ID:[id number] Relation to Subscriber:Self Name:Roseanne Andino Subscriber ID:[id number] Payer ID:[id number] Group ID:Not on file Type:Not on file Address: [facility] [id number] [address] Care Teams Router Tender Relationship Specialty Start Date End Date Deshaun Dupree MD [facility] [address] [address] PCP - General 07/26/15
--- OUTSIDE RECORDS SUMMARY | 2025-05-07 09:41 | XMS_ITS | Clinical Summary ---
Author Organization [facility] [place] [address] Care Team Providers Care Technical Services Manager Name Role Phone Unavailable Primary Care Provider [...] or PCV21) 08/05/2017 08/05/2016 COVID-19 Vaccine ( - season) 2025 10/21/2021, 01/15/2021, 06/21/2020, Additional history exists Influenza [...]
== END 2025-05-05 23:59 | disposition home or self-care (01) ==
LOC: LAB.DROPOF 05-07 09:28
PROVIDERS: PCP Internal Medicine; Visit Provider Student in an Organized Health Care Education/Training Program
DX: R50.9 Fever, unspecified (principal)
CPT/HCPCS: 87636